=== PATIENT | female | born 1940 | race Two or more races ===

== ENCOUNTER 2017-10-28 15:44 | Inpatient (IN) | payer OTHER, MEDICAID ==
[~2017-10-28] VITALS: Ht 154.9 cm; Wt 58.3 kg
[2017-10-28 16:42] LABS: Basophils # (auto) 0.1 uL; Basophils % (auto) 0.8 % (0.0-2.0); Eosinophils # (auto) 0.2 uL; Eosinophils % (auto) 3.1 % (0.0-7.0); Hematocrit 42.9 % (36.0-46.0); Hemoglobin 14.3 g/dL (12.2-16.2); Lymphocytes # (auto) 1.9 uL; Mean Corpuscular Hemoglobin 28.2 pg (28.0-32.0); Mean Corpuscular Hgb Conc. 33.3 g/dL (32.0-36.0); Mean Corpuscular Volume 84.8 fL (80.0-100.0); Monocytes # (auto) 0.6 uL; Monocytes % (auto) 8.7 % (0.0-12.0); Neutrophils # (auto) 3.7 uL; Neutrophils % (auto) 57.4 % (37.0-80.0); Nucleated Red Blood Cells % 0.1 %; Platelet Count (auto) 207 10^3/uL (140-450); Red Blood Cells 5.06 10^6/uL (4.0-5.20); Red Cell Distribution Width 14.9 % (11.8-14.3); White Blood Cell 6.5 10^3/uL (4.4-10.8)
[2017-10-28 17:05] LABS: Albumin 3.7 g/dL (3.4-5.0); BUN/Creatinine Ratio 18.8; Bilirubin, Total 0.3 mg/dL (0.2-1.0); Calcium 8.6 mg/dL (8.5-10.1); Magnesium 2.3 mg/dL (1.6-2.6); Potassium 3.9 mmol/L (3.5-5.1); Total Protein 7.5 g/dL (6.4-8.2)
[2017-10-28] MEDS ORDERED: ENOXAPARIN SOD 60 MG/0.6 ML SYRINGE SC ONE ×2 (17:45→18:45)
[2017-10-28] MEDS ORDERED: NITROGLYCERIN 0.4 MG SL TAB SL ONE (18:25)
[2017-10-28] MEDS ORDERED: EPTIFIBATIDE DRIP(0.75MG/ML) 100 ML IV ONE (18:45)
[2017-10-28] MEDS ORDERED: EPTIFIBATIDE INJ (2MG/ML) 10ML VIAL IV ONE (18:45)
[2017-10-28] MEDS ORDERED: NITROGLYCERIN 0.4 MG SL TAB SL PRN ×2 (18:45→19:00)
[2017-10-28] MEDS ORDERED: LORazepam 0.5 MG TAB PO PRN (18:45)
[2017-10-28] MEDS ORDERED: LACTULOSE 20Gm/30ML SOLN PO PRN (18:45)
[2017-10-28] MEDS ORDERED: ACETAMINOPHEN 500 MG TAB PO PRN (18:45)
[2017-10-28] MEDS ORDERED: TEMAZEPAM 15 MG CAP PO PRN (18:45)
[2017-10-28] MEDS ORDERED: PROMETHAZINE HCL 25 MG/ML 1ML IV PRN (18:45)
[2017-10-28] MEDS ORDERED: MORPHINE SULF INJ 2 MG/ML SYRINGE 1ML IV PRN ×3 (18:45→19:00)
[2017-10-28] MEDS: SODIUM CHLORIDE 0.9% 1,000 ML IV SCH (19:36)
[2017-10-28] MEDS: NITROGLYCERIN 0.2MG/HR TOPICAL PATCH TD SCH (19:37)
[2017-10-28] MEDS: PANTOPRAZOLE 40 MG TAB PO SCH (19:38)
[2017-10-28] MEDS ORDERED: DEXTROSE (50%) 50ML SYRG IV PRN (20:15)
[2017-10-28] MEDS ORDERED: CLOP75TA41 PO (20:23)
[2017-10-28] MEDS ORDERED: CHOL20007 PO (20:23)
[2017-10-28] MEDS ORDERED: ATOR40TA52 PO (20:23)
[2017-10-28] MEDS ORDERED: SUCR1TAB PO (20:23)
[2017-10-28] MEDS ORDERED: METF-370 PO (20:23)
[2017-10-28] MEDS ORDERED: ACE3T PO (20:23)
[2017-10-28] MEDS ORDERED: FAM20T PO (20:23)
[2017-10-28] MEDS ORDERED: LOSA50TA6 PO (20:23)
[2017-10-28] MEDS ORDERED: RANI150C11 PO (20:23)
[2017-10-28 20:33] LABS: INR 0.96 (0.9-1.15); Partial Thromboplastin Time 27.3 sec (23.78-33.04); Prothrombin Time 10.3 sec (9.27-12.13)
[2017-10-28] MEDS: ATORVASTATIN 20 MG TAB PO SCH (21:50)
[2017-10-28] MEDS: METOPROLOL TARTRATE 25 MG TAB PO SCH (21:51)
[2017-10-28] MEDS: LISINOPRIL 5 MG TAB PO SCH (21:52)
[2017-10-28] MEDS: InsuLIN REG 1unit/0.01ml Soln (100units/ml) SC SCH (21:54)
[2017-10-28] MEDS: ACCU-CHEK COMFORT CURVE STRIP VI SCH (21:54)
[2017-10-29] VITALS (7 sets, daily range): BP systolic 118–146; BP diastolic 53–81
[2017-10-29 05:09] LABS: Basophils # (auto) 0.1 uL; Basophils % (auto) 0.8 % (0.0-2.0); Eosinophils # (auto) 0.2 uL; Eosinophils % (auto) 2.8 % (0.0-7.0); Hematocrit 38.9 % (36.0-46.0); Hemoglobin 12.9 g/dL (12.2-16.2); Lymphocytes # (auto) 2.2 uL; Lymphocytes % (auto) 33.5 % (10.0-50.0); Mean Corpuscular Hemoglobin 27.7 pg (28.0-32.0); Mean Corpuscular Hgb Conc. 33.2 g/dL (32.0-36.0); Mean Corpuscular Volume 83.3 fL (80.0-100.0); Monocytes # (auto) 0.6 uL; Monocytes % (auto) 8.6 % (0.0-12.0); Neutrophils # (auto) 3.5 uL; Neutrophils % (auto) 54.3 % (37.0-80.0); Nucleated Red Blood Cells % 0.2 %; Platelet Count (auto) 198 10^3/uL (140-450); Red Blood Cells 4.67 10^6/uL (4.0-5.20); Red Cell Distribution Width 15.1 % (11.8-14.3); White Blood Cell 6.5 10^3/uL (4.4-10.8)
[2017-10-29 05:31] LABS: BUN/Creatinine Ratio 22.9; Calcium 8.3 mg/dL (8.5-10.1); Potassium 3.6 mmol/L (3.5-5.1)
[2017-10-29 05:36] LABS: Cholesterol 121 mg/dL (< 200); HDL Cholesterol 35 mg/dL (40-59); LDL Cholesterol 70 mg/dL (< 100); Triglycerides 164 mg/dL (< 150)
[2017-10-29] MEDS ORDERED: ENOXAPARIN SOD 60 MG/0.6 ML SYRINGE SC SCH (06:00)
[2017-10-29] MEDS: ACCU-CHEK COMFORT CURVE STRIP VI SCH ×4 (06:54→22:13)
[2017-10-29] MEDS: InsuLIN REG 1unit/0.01ml Soln (100units/ml) SC SCH ×4 (06:54→22:00)
[2017-10-29] MEDS: SODIUM CHLORIDE 0.9% 1,000 ML IV SCH ×2 (07:56→22:12)
[2017-10-29] MEDS ORDERED: ANGIOMAX 250 MG VIAL IV ONE (08:27)
[2017-10-29] MEDS ORDERED: fentaNYL CITRATE 100 MCG/2 ML VL ONE (08:27)
[2017-10-29] MEDS ORDERED: SODIUM CHL 0.9% 50 ML ONE (08:28)
[2017-10-29] MEDS ORDERED: LIDOCAINE 2%HCL (LOCAL ANESTH.) INJ 10ml MDV ONE (08:28)
[2017-10-29] MEDS ORDERED: MIDAZOLAM HCL 1MG/1ML-2 ML VIAL ONE ×2 (08:28→10:54)
[2017-10-29] MEDS ORDERED: IODIXANOL 320MG/ML 100ML BTL IV ONE ×2 (08:29→10:47)
[2017-10-29] MEDS ORDERED: ATROPINE SULF 1 MG/10ml SYR ONE (09:08)
[2017-10-29] MEDS ORDERED: EPINEPHrine HCL 1 MG/10 ML SYRG ONE (09:08)
[2017-10-29] MEDS: LISINOPRIL 5 MG TAB PO SCH ×2 (10:00→22:00)
[2017-10-29] MEDS: PANTOPRAZOLE 40 MG TAB PO SCH (10:00)
[2017-10-29] MEDS: METOPROLOL TARTRATE 25 MG TAB PO SCH ×2 (10:00→22:00)
[2017-10-29] MEDS: ASPirin 81 mg TAB PO SCH (10:00)
[2017-10-29] MEDS ORDERED: TICAGRELOR 90 MG TAB ONE (11:16)
[2017-10-29] MEDS: SODIUM CHLOR 0.9% PF (SALINE LOCK) 10ML VIAL/SYR IV SCH ×2 (14:45→22:12)
[2017-10-29] MEDS: HYDROcodone-ACET 5/325MG TAB PO PRN ×2 (14:54→22:24)
[2017-10-29] MEDS: NITROGLYCERIN 0.2MG/HR TOPICAL PATCH TD SCH (17:37)
[2017-10-29] MEDS: ATORVASTATIN 20 MG TAB PO SCH (22:12)
[2017-10-29] MEDS: TICAGRELOR 90 MG TAB PO SCH (22:13)
[2017-10-30] VITALS: BP 103/54
[2017-10-30 04:00] VITALS: BP 105/53
[2017-10-30 05:26] LABS: Basophils # (auto) 0 uL; Basophils % (auto) 0.4 % (0.0-2.0); Eosinophils # (auto) 0.1 uL; Eosinophils % (auto) 1.8 % (0.0-7.0); Hematocrit 38.3 % (36.0-46.0); Hemoglobin 12.8 g/dL (12.2-16.2); Lymphocytes # (auto) 1.2 uL; Lymphocytes % (auto) 15.8 % (10.0-50.0); Mean Corpuscular Hgb Conc. 33.3 g/dL (32.0-36.0); Mean Corpuscular Volume 84.1 fL (80.0-100.0); Monocytes # (auto) 0.7 uL; Monocytes % (auto) 8.9 % (0.0-12.0); Neutrophils # (auto) 5.6 uL; Neutrophils % (auto) 73.1 % (37.0-80.0); Platelet Count (auto) 177 10^3/uL (140-450); Red Blood Cells 4.55 10^6/uL (4.0-5.20); Red Cell Distribution Width 15.1 % (11.8-14.3); White Blood Cell 7.6 10^3/uL (4.4-10.8)
[2017-10-30] MEDS: ACCU-CHEK COMFORT CURVE STRIP VI SCH ×2 (05:39→12:00)
[2017-10-30] MEDS: SODIUM CHLOR 0.9% PF (SALINE LOCK) 10ML VIAL/SYR IV SCH ×2 (05:39→13:50)
[2017-10-30] MEDS: InsuLIN REG 1unit/0.01ml Soln (100units/ml) SC SCH ×2 (05:39→12:00)
[2017-10-30 05:49] LABS: BUN/Creatinine Ratio 21.9; Calcium 8.3 mg/dL (8.5-10.1); Potassium 3.8 mmol/L (3.5-5.1)
[2017-10-30 05:51] LABS: Bilirubin, Total 0.6 mg/dL (0.2-1.0); Total Protein 6.3 g/dL (6.4-8.2)
[2017-10-30 08:00] VITALS: BP 137/66
[2017-10-30] MEDS: PANTOPRAZOLE 40 MG TAB PO SCH (08:19)
[2017-10-30] MEDS: TICAGRELOR 90 MG TAB PO SCH (09:39)
[2017-10-30] MEDS: ASPirin 81 mg TAB PO SCH (09:39)
[2017-10-30] MEDS: LISINOPRIL 5 MG TAB PO SCH (09:43)
[2017-10-30] MEDS: SODIUM CHLORIDE 0.9% 1,000 ML IV SCH (09:48)
[2017-10-30] MEDS: METOPROLOL TARTRATE 25 MG TAB PO SCH (09:48)
[2017-10-30] MEDS ORDERED: ENOXAPARIN SOD 40 MG/0.4 ML SYRINGE SC SCH (10:00)
[2017-10-30 11:58] VITALS: BP 134/49
[2017-10-30 12:06] VITALS: BP 141/85
[2017-11-21] MEDS ORDERED: METO25TA5 PO (14:14)
[2017-11-21] MEDS ORDERED: LISI2.5T47 PO (14:14)
== END 2017-10-30 16:06 | disposition home or self-care (01) | DRG 246 ==
LOC: ER 15:44 → OVERFLOW 15:45 → DOU IN ICU 22:38
PROVIDERS: ADMIT Internal Medicine; ATTEND Internal Medicine
PROC: B2151ZZ Fluoroscopy of Left Heart using Low Osmolar Contrast (ICD-10-PCS; principal; 2017-10-29)
PROC: 027135Z Dilation of Coronary Artery, Two Arteries with Two Drug-eluting Intraluminal Devices, Percutaneous Approach (ICD-10-PCS; 2017-10-29)
PROC: B2111ZZ Fluoroscopy of Multiple Coronary Arteries using Low Osmolar Contrast (ICD-10-PCS; 2017-10-29)
PROC: 4A023N7 Measurement of Cardiac Sampling and Pressure, Left Heart, Percutaneous Approach (ICD-10-PCS; 2017-10-29)
PROC: B2181ZZ Fluoroscopy of Left Internal Mammary Bypass Graft using Low Osmolar Contrast (ICD-10-PCS; 2017-10-29)
PROC: B2121ZZ Fluoroscopy of Single Coronary Artery Bypass Graft using Low Osmolar Contrast (ICD-10-PCS; 2017-10-29)
PROC: B41D1ZZ Fluoroscopy of Aorta and Bilateral Lower Extremity Arteries using Low Osmolar Contrast (ICD-10-PCS; 2017-10-29)
DX: T82.855A Stenosis of coronary artery stent, initial encounter (principal); I21.4 Non-ST elevation (NSTEMI) myocardial infarction; E44.1 Mild protein-calorie malnutrition; I25.10 Atherosclerotic heart disease of native coronary artery without angina pectoris; K27.9 Peptic ulcer, site unspecified, unspecified as acute or chronic, without hemorrhage or perforation; I10 Essential (primary) hypertension; I25.2 Old myocardial infarction; E78.5 Hyperlipidemia, unspecified; E11.9 Type 2 diabetes mellitus without complications; Y83.1 Surgical operation with implant of artificial internal device as the cause of abnormal reaction of the patient, or of later complication, without mention of misadventure at the time of the procedure; Y83.8 Other surgical procedures as the cause of abnormal reaction of the patient, or of later complication, without mention of misadventure at the time of the procedure; Y92.89 Other specified places as the place of occurrence of the external cause; Z87.11 Personal history of peptic ulcer disease; Z95.1 Presence of aortocoronary bypass graft; Z90.49 Acquired absence of other specified parts of digestive tract; Z79.84 Long term (current) use of oral hypoglycemic drugs; Z79.899 Other long term (current) drug therapy; Z68.24 Body mass index [BMI] 24.0-24.9, adult
CPT/HCPCS: 36415; 71045; 75716; 80048; 80053; 80061; 82550; 82962; 83735; 83880; 84443; 84484; 85025; 85379; 85610; 85652; 85730; 86141; 87081; 92921; 92928; 93005; 93306; 93459; 96361; 96365; 96375; 99152; A6257; C1874; J1815; J2001; J2250; Q9967

== ENCOUNTER 2017-11-01 13:54 | Inpatient (IN) | payer OTHER, MEDICAID ==
[~2017-11-01] VITALS: Ht 152.4 cm; Wt 61.0 kg
[2017-11-01] VITALS (15 sets, daily range): BP systolic 95–159; BP diastolic 37–71
[~2017-11-01 13:54] MED LIST: ACE3T PO; ATOR40TA52 PO; CHOL20007 PO; FAM20T PO; METF-370 PO; RANI150C11 PO; SUCR1TAB PO
[2017-11-01 14:52] LABS: Basophils # (auto) 0.1 uL; Basophils % (auto) 0.6 % (0.0-2.0); Eosinophils # (auto) 0.2 uL; Eosinophils % (auto) 2.4 % (0.0-7.0); Hematocrit 39.7 % (36.0-46.0); Hemoglobin 13.3 g/dL (12.2-16.2); Lymphocytes # (auto) 1.4 uL; Lymphocytes % (auto) 15.7 % (10.0-50.0); Mean Corpuscular Hemoglobin 28.4 pg (28.0-32.0); Mean Corpuscular Hgb Conc. 33.6 g/dL (32.0-36.0); Mean Corpuscular Volume 84.6 fL (80.0-100.0); Monocytes # (auto) 0.9 uL; Monocytes % (auto) 10.6 % (0.0-12.0); Neutrophils # (auto) 6.2 uL; Neutrophils % (auto) 70.7 % (37.0-80.0); Nucleated Red Blood Cells % 0.1 %; Platelet Count (auto) 202 10^3/uL (140-450); Red Cell Distribution Width 15.4 % (11.8-14.3); White Blood Cell 8.7 10^3/uL (4.4-10.8)
[2017-11-01 15:09] LABS: Albumin 3.6 g/dL (3.4-5.0); BUN/Creatinine Ratio 18.8; Potassium 4.7 mmol/L (3.5-5.1)
[2017-11-01 15:14] LABS: INR 0.96 (0.9-1.15); Partial Thromboplastin Time 29.5 sec (23.78-33.04); Prothrombin Time 10.3 sec (9.27-12.13)
[2017-11-01 15:25] LABS: Bilirubin, Total 0.5 mg/dL (0.2-1.0); Total Protein 7.9 g/dL (6.4-8.2)
[2017-11-01] MEDS: SODIUM CHLORIDE 0.9% 1,000 ML IV SCH ×2 (16:04→18:01)
[2017-11-01] MEDS ORDERED: MORPHINE SULFATE 4 MG/ML SYR/VIAL IV PRN ×2 (16:15)
[2017-11-01] MEDS ORDERED: ACETAMINOPHEN 500 MG TAB PO PRN (16:15)
[2017-11-01] MEDS ORDERED: LORazepam 0.5 MG TAB PO PRN (16:15)
[2017-11-01] MEDS ORDERED: LACTULOSE 20Gm/30ML SOLN PO PRN (16:15)
[2017-11-01] MEDS ORDERED: HYDROcodone-ACET 5/325MG TAB PO PRN (16:15)
[2017-11-01] MEDS ORDERED: PROMETHAZINE HCL 25 MG/ML 1ML IV PRN (16:15)
[2017-11-01] MEDS ORDERED: TEMAZEPAM 15 MG CAP PO PRN (16:15)
[2017-11-01] MEDS ORDERED: NITROGLYCERIN 0.4 MG SL TAB SL PRN (16:15)
[2017-11-01] MEDS ORDERED: DEXTROSE (50%) 50ML SYRG IV PRN (16:15)
[2017-11-01] MEDS: InsuLIN REG 1unit/0.01ml Soln (100units/ml) SC SCH ×2 (16:28→21:50)
[2017-11-01] MEDS: ACCU-CHEK COMFORT CURVE STRIP VI SCH ×2 (16:29→21:50)
[2017-11-01] MEDS: PANTOPRAZOLE 40 MG TAB PO SCH (16:37)
[2017-11-01] MEDS: SUCRALFATE 1 GM TAB PO SCH ×2 (17:15→21:49)
[2017-11-01] MEDS: METOPROLOL TARTRATE 25 MG TAB PO SCH (21:49)
[2017-11-01] MEDS: ATORVASTATIN 20 MG TAB PO SCH (21:49)
[2017-11-02] VITALS (55 sets, daily range): BP systolic 91–188; BP diastolic 42–112
[2017-11-02] MEDS: InsuLIN REG 1unit/0.01ml Soln (100units/ml) SC SCH ×4 (07:00→22:58)
[2017-11-02] MEDS: SUCRALFATE 1 GM TAB PO SCH ×4 (07:01→22:50)
[2017-11-02] MEDS: ACCU-CHEK COMFORT CURVE STRIP VI SCH ×4 (07:02→22:00)
[2017-11-02] MEDS: METOPROLOL TARTRATE 25 MG TAB PO SCH ×2 (10:00→22:51)
[2017-11-02] MEDS ORDERED: FAMOTIDINE 20 MG TAB PO SCH (10:00)
[2017-11-02] MEDS: PANTOPRAZOLE 40 MG TAB PO SCH (10:00)
[2017-11-02] MEDS: CHOLECALCIFEROL (VITD3) 1,000 UNIT TAB PO SCH (10:00)
[2017-11-02] MEDS: NITROGLYCERIN 0.2MG/HR TOPICAL PATCH TD SCH (10:00)
[2017-11-02] MEDS ORDERED: HEPARIN DRIP/D5W 100UNITS/ML 250 ML IV SCH (12:19)
[2017-11-02] MEDS ORDERED: HEPARIN SODIUM (PORCINE) 5000 UNITS/ML 1ML VIAL IV ONE (12:30)
[2017-11-02] MEDS ORDERED: LOSARTAN POTASSIUM 25 MG TAB PO ONE (13:00)
[2017-11-02 13:40] LABS: Basophils # (auto) 0 uL; Basophils % (auto) 0.5 % (0.0-2.0); Eosinophils # (auto) 0.2 uL; Hematocrit 39.8 % (36.0-46.0); Lymphocytes # (auto) 1.6 uL; Lymphocytes % (auto) 21.7 % (10.0-50.0); Mean Corpuscular Hemoglobin 27.7 pg (28.0-32.0); Mean Corpuscular Hgb Conc. 32.6 g/dL (32.0-36.0); Mean Corpuscular Volume 85.1 fL (80.0-100.0); Monocytes # (auto) 0.8 uL; Monocytes % (auto) 10.3 % (0.0-12.0); Neutrophils # (auto) 4.9 uL; Neutrophils % (auto) 64.5 % (37.0-80.0); Nucleated Red Blood Cells % 0.1 %; Platelet Count (auto) 216 10^3/uL (140-450); Red Blood Cells 4.67 10^6/uL (4.0-5.20); Red Cell Distribution Width 15.3 % (11.8-14.3); White Blood Cell 7.6 10^3/uL (4.4-10.8)
[2017-11-02] MEDS: ATORVASTATIN 20 MG TAB PO SCH (22:51)
[2017-11-03 04:39] VITALS: BP 117/62
[2017-11-03] MEDS: SUCRALFATE 1 GM TAB PO SCH (05:35)
[2017-11-03] MEDS: InsuLIN REG 1unit/0.01ml Soln (100units/ml) SC SCH (05:35)
[2017-11-03] MEDS: ACCU-CHEK COMFORT CURVE STRIP VI SCH (05:35)
[2017-11-03 06:15] LABS: Urine Bacteria FEW /hpf (None Seen); Urine Blood Negative /uL (Negative); Urine Specific Gravity 1.009 (1.001-1.035); Urine WBC 1 /hpf (0 - 5)
[2017-11-03 08:42] VITALS: BP 113/58
[2017-11-03] MEDS ORDERED: CLOP75TA28 PO (09:29)
[2017-11-03] MEDS ORDERED: PANT40T PO (09:29)
[2017-11-03] MEDS: METOPROLOL TARTRATE 25 MG TAB PO SCH (09:36)
[2017-11-03] MEDS: CHOLECALCIFEROL (VITD3) 1,000 UNIT TAB PO SCH (09:37)
[2017-11-03] MEDS: NITROGLYCERIN 0.2MG/HR TOPICAL PATCH TD SCH (09:37)
[2017-11-03] MEDS: PANTOPRAZOLE 40 MG TAB PO SCH (09:37)
[2017-11-03] MEDS ORDERED: LOSARTAN POTASSIUM 25 MG TAB PO SCH (10:00)
[2017-11-03] MEDS ORDERED: CLOPIDOGREL BISULFATE 75 MG TAB PO SCH ×2 (10:00)
[2017-11-03] MEDS ORDERED: ASPirin 81 mg TAB PO SCH (10:00)
[2017-11-03 11:30] VITALS: BP 113/58
[2017-11-21] MEDS ORDERED: METO25TA5 PO (14:14)
[2017-11-21] MEDS ORDERED: LISI2.5T47 PO (14:14)
== END 2017-11-03 11:50 | disposition home or self-care (01) | DRG 280 ==
LOC: ER 14:01 → TELE 14:02 → ICU WEST 17:55 → TELE-WESTW 11-02 16:00
PROVIDERS: ADMIT Internal Medicine; ATTEND Internal Medicine
DX: I21.4 Non-ST elevation (NSTEMI) myocardial infarction (principal); I50.43 Acute on chronic combined systolic (congestive) and diastolic (congestive) heart failure; N13.30 Unspecified hydronephrosis; R04.0 Epistaxis; R31.9 Hematuria, unspecified; E11.51 Type 2 diabetes mellitus with diabetic peripheral angiopathy without gangrene; I25.10 Atherosclerotic heart disease of native coronary artery without angina pectoris; Z95.1 Presence of aortocoronary bypass graft; E78.5 Hyperlipidemia, unspecified; I11.0 Hypertensive heart disease with heart failure; Z87.11 Personal history of peptic ulcer disease; Z95.5 Presence of coronary angioplasty implant and graft
CPT/HCPCS: 36415; 71046; 76775; 80053; 81001; 82550; 82962; 83036; 83735; 83880; 84443; 84484; 85025; 85610; 85730; 87081; 87086; 93005; 94761; 96360; J1815

== ENCOUNTER → 2017-11-21 | Outpatient (CLI) | payer OTHER, MEDICAID ==
[~2017-11-21] MED LIST changes: +CLOP75TA28 PO; +CLOPIDOGREL BISULFATE 75 MG TAB ONE; -FAM20T PO; +LISI2.5T47 PO; +METO25TA5 PO; +PANT40T PO
[2017-11-21 08:10] VITALS: BP 139/66
[2017-11-21 08:42] VITALS: BP 148/64
[2017-11-21 12:03] LABS: Basophils # (auto) 0.1 uL; Eosinophils # (auto) 0.2 uL; Eosinophils % (auto) 4.1 % (0.0-7.0); Hematocrit 42.4 % (36.0-46.0); Hemoglobin 14.2 g/dL (12.2-16.2); Lymphocytes # (auto) 1.1 uL; Lymphocytes % (auto) 19.6 % (10.0-50.0); Mean Corpuscular Hemoglobin 28.6 pg (28.0-32.0); Mean Corpuscular Hgb Conc. 33.5 g/dL (32.0-36.0); Mean Corpuscular Volume 85.4 fL (80.0-100.0); Monocytes # (auto) 0.4 uL; Monocytes % (auto) 6.5 % (0.0-12.0); Neutrophils # (auto) 3.8 uL; Neutrophils % (auto) 68.8 % (37.0-80.0); Nucleated Red Blood Cells % 0.4 %; Platelet Count (auto) 229 10^3/uL (140-450); Red Blood Cells 4.97 10^6/uL (4.0-5.20); Red Cell Distribution Width 15.3 % (11.8-14.3); White Blood Cell 5.5 10^3/uL (4.4-10.8)
[2017-11-21 12:32] LABS: BUN/Creatinine Ratio 16.9; Calcium 9.1 mg/dL (8.5-10.1); Potassium 4.4 mmol/L (3.5-5.1)
[2017-11-21 12:33] LABS: INR 0.99 (0.9-1.15); Partial Thromboplastin Time 27.7 sec (23.78-33.04); Prothrombin Time 10.6 sec (9.27-12.13)
== END | disposition home or self-care (01) ==
LOC: CHF HDHVI 08:00
PROVIDERS: ATTEND Internal Medicine Cardiovascular Disease
DX: Z01.812 Encounter for preprocedural laboratory examination (principal); D64.9 Anemia, unspecified; R79.1 Abnormal coagulation profile; I10 Essential (primary) hypertension; R94.31 Abnormal electrocardiogram [ECG] [EKG]
CPT/HCPCS: 36415; 80048; 85025; 85610; 85730; 93005; G0463

== ENCOUNTER 2017-11-22 11:09 | Inpatient (IN) | payer OTHER, MEDICAID ==
[~2017-11-22] VITALS: Ht 152.4 cm; Wt 42.2 kg
[~2017-11-22 11:09] MED LIST changes: -CLOPIDOGREL BISULFATE 75 MG TAB ONE; -RANI150C11 PO
[2017-11-22] MEDS ORDERED: LIDOCAINE 2%HCL (LOCAL ANESTH.) INJ 10ml MDV ONE (12:32)
[2017-11-22] MEDS ORDERED: IOHEXOL 350 MG/ML 100ML IJ ONE (12:32)
[2017-11-22] MEDS ORDERED: HEPARIN IN NS 1000Units/500mL 1,500 ML ONE (12:32)
[2017-11-22] MEDS ORDERED: fentaNYL CITRATE 100 MCG/2 ML VL ONE ×2 (12:41→14:38)
[2017-11-22] MEDS ORDERED: ANGIOMAX 250 MG VIAL IV ONE ×2 (12:41→14:42)
[2017-11-22] MEDS ORDERED: MIDAZOLAM HCL 1MG/1ML-2 ML VIAL ONE ×2 (12:41→14:38)
[2017-11-22] MEDS ORDERED: SODIUM CHL 0.9% 50 ML ONE ×2 (12:42→14:42)
[2017-11-22] MEDS ORDERED: hydrALAZINE HCL 20 MG/ML VL ONE (13:51)
[2017-11-22] MEDS ORDERED: IODIXANOL 320MG/ML 100ML BTL IV ONE ×2 (14:00→14:42)
[2017-11-22] MEDS ORDERED: ONDANSETRON HCL 4 MG/2 ML VIAL ONE (15:08)
[2017-11-22] MEDS ORDERED: NITROGLYCERIN 0.4 MG SL TAB SL PRN (15:30)
[2017-11-22] MEDS ORDERED: HYDROcodone-ACET 5/325MG TAB PO PRN (15:30)
[2017-11-22] MEDS ORDERED: CLOPIDOGREL BISULFATE 75 MG TAB PO ONE (15:30)
[2017-11-22] MEDS ORDERED: DEXTROSE (50%) 50ML SYRG IV PRN (15:30)
[2017-11-22] MEDS ORDERED: ACETAMINOPHEN 500 MG TAB PO PRN (15:30)
[2017-11-22] MEDS ORDERED: MORPHINE SULF INJ 2 MG/ML SYRINGE 1ML IV PRN (15:30)
[2017-11-22] MEDS ORDERED: ONDANSETRON HCL 4 MG/2 ML VIAL IV PRN (15:30)
[2017-11-22] MEDS: SOD CHL 0.45% 1,000 ML IV SCH (15:41)
[2017-11-22 16:04] LABS: Basophils # (auto) 0 uL; Basophils % (auto) 0.7 % (0.0-2.0); Eosinophils # (auto) 0.2 uL; Eosinophils % (auto) 3.2 % (0.0-7.0); Hemoglobin 13.6 g/dL (12.2-16.2); Lymphocytes # (auto) 1.6 uL; Lymphocytes % (auto) 24.8 % (10.0-50.0); Mean Corpuscular Hemoglobin 28.3 pg (28.0-32.0); Mean Corpuscular Hgb Conc. 33.3 g/dL (32.0-36.0); Mean Corpuscular Volume 85.2 fL (80.0-100.0); Monocytes # (auto) 0.4 uL; Monocytes % (auto) 6.7 % (0.0-12.0); Neutrophils # (auto) 4.3 uL; Neutrophils % (auto) 64.6 % (37.0-80.0); Nucleated Red Blood Cells % 0.1 %; Platelet Count (auto) 188 10^3/uL (140-450); Red Blood Cells 4.81 10^6/uL (4.0-5.20); Red Cell Distribution Width 15.7 % (11.8-14.3); White Blood Cell 6.6 10^3/uL (4.4-10.8)
[2017-11-22 16:22] LABS: Albumin 3.6 g/dL (3.4-5.0); BUN/Creatinine Ratio 18.6; Bilirubin, Total 0.6 mg/dL (0.2-1.0); Calcium 8.6 mg/dL (8.5-10.1); Potassium 3.9 mmol/L (3.5-5.1); Total Protein 7.3 g/dL (6.4-8.2)
[2017-11-22 17:16] VITALS: BP 127/62
[2017-11-22 17:25] VITALS: BP 127/62
[2017-11-22] MEDS: InsuLIN REG 1unit/0.01ml Soln (100units/ml) SC SCH (18:17)
[2017-11-22] MEDS: ACCU-CHEK COMFORT CURVE STRIP VI SCH ×2 (18:17→21:31)
[2017-11-22 21:30] VITALS: BP 116/55
[2017-11-22] MEDS: SODIUM CHLOR 0.9% PF (SALINE LOCK) 10ML VIAL/SYR IV SCH (21:30)
[2017-11-22] MEDS: METOPROLOL TARTRATE 25 MG TAB PO SCH (21:31)
[2017-11-22] MEDS ORDERED: InsuLIN REG 1unit/0.01ml Soln (100units/ml) SC SCH (22:00)
[2017-11-22] MEDS ORDERED: ATORVASTATIN 20 MG TAB PO SCH (22:00)
[2017-11-23] MEDS: SOD CHL 0.45% 1,000 ML IV SCH ×2 (04:50→06:29)
[2017-11-23 05:00] VITALS: BP 121/55
[2017-11-23] MEDS: SODIUM CHLOR 0.9% PF (SALINE LOCK) 10ML VIAL/SYR IV SCH (06:29)
[2017-11-23] MEDS: ACCU-CHEK COMFORT CURVE STRIP VI SCH ×2 (06:30→12:10)
[2017-11-23] MEDS: InsuLIN REG 1unit/0.01ml Soln (100units/ml) SC SCH ×2 (06:30→12:10)
[2017-11-23 06:39] LABS: Albumin 3.3 g/dL (3.4-5.0); BUN/Creatinine Ratio 16.9; Calcium 8.6 mg/dL (8.5-10.1); Potassium 4.3 mmol/L (3.5-5.1)
[2017-11-23 06:42] LABS: Bilirubin, Total 0.6 mg/dL (0.2-1.0)
[2017-11-23] MEDS ORDERED: SUCRALFATE 1 GM TAB PO SCH (07:00)
[2017-11-23 08:00] VITALS: BP 120/59
[2017-11-23 08:35] LABS: Basophils # (auto) 0 uL; Basophils % (auto) 0.5 % (0.0-2.0); Eosinophils # (auto) 0.1 uL; Eosinophils % (auto) 0.9 % (0.0-7.0); Hematocrit 40.3 % (36.0-46.0); Hemoglobin 13.2 g/dL (12.2-16.2); Lymphocytes # (auto) 1.5 uL; Lymphocytes % (auto) 17.4 % (10.0-50.0); Mean Corpuscular Hemoglobin 27.7 pg (28.0-32.0); Mean Corpuscular Hgb Conc. 32.8 g/dL (32.0-36.0); Mean Corpuscular Volume 84.7 fL (80.0-100.0); Monocytes # (auto) 0.7 uL; Monocytes % (auto) 8.4 % (0.0-12.0); Neutrophils # (auto) 6.3 uL; Neutrophils % (auto) 72.8 % (37.0-80.0); Nucleated Red Blood Cells % 0.1 %; Platelet Count (auto) 190 10^3/uL (140-450); Red Blood Cells 4.75 10^6/uL (4.0-5.20); Red Cell Distribution Width 15.8 % (11.8-14.3); White Blood Cell 8.6 10^3/uL (4.4-10.8)
[2017-11-23] MEDS ORDERED: LISINOPRIL 5 MG TAB PO SCH (10:00)
[2017-11-23] MEDS ORDERED: CLOPIDOGREL BISULFATE 75 MG TAB PO SCH (10:00)
[2017-11-23] MEDS ORDERED: CHOLECALCIFEROL (VITD3) 1,000 UNIT TAB PO SCH (10:00)
[2017-11-23] MEDS ORDERED: PANTOPRAZOLE 40 MG TAB PO SCH (10:00)
[2017-11-23] MEDS: METOPROLOL TARTRATE 25 MG TAB PO SCH (10:31)
[2017-11-23 12:37] VITALS: BP 127/61
[2017-11-23 13:50] VITALS: BP 127/61
== END 2017-11-23 15:59 | disposition home or self-care (01) | DRG 253 ==
LOC: CATH 11:09 → WEST WING 11:10
PROVIDERS: ADMIT Internal Medicine; ATTEND Internal Medicine
PROC: B41G1ZZ Fluoroscopy of Left Lower Extremity Arteries using Low Osmolar Contrast (ICD-10-PCS; principal; 2017-11-22)
PROC: B41F1ZZ Fluoroscopy of Right Lower Extremity Arteries using Low Osmolar Contrast (ICD-10-PCS; 2017-11-22)
PROC: 047J34Z Dilation of Left External Iliac Artery with Drug-eluting Intraluminal Device, Percutaneous Approach (ICD-10-PCS; 2017-11-22)
PROC: 047D34Z Dilation of Left Common Iliac Artery with Drug-eluting Intraluminal Device, Percutaneous Approach (ICD-10-PCS; 2017-11-22)
PROC: 047L34Z Dilation of Left Femoral Artery with Drug-eluting Intraluminal Device, Percutaneous Approach (ICD-10-PCS; 2017-11-22)
DX: I70.213 Atherosclerosis of native arteries of extremities with intermittent claudication, bilateral legs (principal); Z68.1 Body mass index [BMI] 19.9 or less, adult; I10 Essential (primary) hypertension; E78.5 Hyperlipidemia, unspecified; I67.9 Cerebrovascular disease, unspecified; R63.6 Underweight; F17.210 Nicotine dependence, cigarettes, uncomplicated; E11.8 Type 2 diabetes mellitus with unspecified complications
CPT/HCPCS: 36415; 37221; 37226; 75716; 80053; 82962; 85025; 87081; 99152; 99153; C1781; J1815; J2001; J2250; J2405; Q9967

== ENCOUNTER → 2018-03-07 | Outpatient (CLI) | payer OTHER, MEDICAID ==
[~2018-03-07] VITALS: Ht 152.4 cm; Wt 59.0 kg
[~2018-03-07] MED LIST changes: +ADENOSINE 50 MG in GIVE UN-DILUTED 0 ML IV ONE; +ADENOSINE 90 MG/30 ML INJ IV ONE
== END | disposition home or self-care (01) ==
LOC: Rad HDHVI 08:04
PROVIDERS: ATTEND Internal Medicine
DX: I25.110 Atherosclerotic heart disease of native coronary artery with unstable angina pectoris (principal); F41.9 Anxiety disorder, unspecified; E11.9 Type 2 diabetes mellitus without complications; M79.605 Pain in left leg; R00.2 Palpitations; Z98.62 Peripheral vascular angioplasty status
CPT/HCPCS: 78452; 93005; 96374; 96375; A9500; J0153

== ENCOUNTER → 2018-03-19 | Outpatient (CLI) | payer OTHER, MEDICAID ==
[~2018-03-19] MED LIST changes: -ADENOSINE 50 MG in GIVE UN-DILUTED 0 ML IV ONE; -ADENOSINE 90 MG/30 ML INJ IV ONE
[2018-03-19 08:30] VITALS: BP 158/64
[2018-03-19 09:12] VITALS: BP 160/67
[2018-03-19 12:14] LABS: Basophils # (auto) 0 uL; Basophils % (auto) 0.8 % (0.0-2.0); Eosinophils # (auto) 0.2 uL; Eosinophils % (auto) 3.3 % (0.0-7.0); Hematocrit 44.4 % (36.0-46.0); Hemoglobin 14.7 g/dL (12.2-16.2); Lymphocytes # (auto) 1.2 uL; Lymphocytes % (auto) 22.2 % (10.0-50.0); Mean Corpuscular Hemoglobin 29.4 pg (28.0-32.0); Mean Corpuscular Hgb Conc. 33.1 g/dL (32.0-36.0); Mean Corpuscular Volume 88.8 fL (80.0-100.0); Monocytes # (auto) 0.3 uL; Monocytes % (auto) 6.2 % (0.0-12.0); Neutrophils # (auto) 3.6 uL; Neutrophils % (auto) 67.5 % (37.0-80.0); Nucleated Red Blood Cells % 0.3 %; Platelet Count (auto) 219 10^3/uL (140-450); Red Cell Distribution Width 13.7 % (11.8-14.3); White Blood Cell 5.4 10^3/uL (4.4-10.8)
[2018-03-19 12:26] LABS: INR 0.98 (0.9-1.15); Partial Thromboplastin Time 28.2 sec (23.78-33.04); Prothrombin Time 10.5 sec (9.27-12.13)
[2018-03-19 12:31] LABS: BUN/Creatinine Ratio 18.4; Calcium 9.1 mg/dL (8.5-10.1)
== END | disposition home or self-care (01) ==
LOC: Rad HDHVI 08:21
PROVIDERS: ATTEND Internal Medicine Cardiovascular Disease
DX: Z01.818 Encounter for other preprocedural examination (principal); I70.0 Atherosclerosis of aorta; I25.10 Atherosclerotic heart disease of native coronary artery without angina pectoris; I11.0 Hypertensive heart disease with heart failure; I50.9 Heart failure, unspecified; D64.9 Anemia, unspecified; R79.1 Abnormal coagulation profile
CPT/HCPCS: 36415; 71046; 80048; 85025; 85610; 85730; 93005; G0463

== ENCOUNTER → 2018-04-13 | Outpatient (CLI) | payer OTHER, MEDICAID ==
[~2018-04-13] MED LIST changes: +ASPI81TA27 PO; +CILO100T PO; +GABA300C10 PO; +ISOS30TA4 PO; +RANI-226 PO
[2018-04-13 09:25] VITALS: BP 163/64
[2018-04-13 09:40] VITALS: BP 158/64
--- NOTE | 2018-04-13 09:40 | NUR ---
Pre-Op Discharge Summary: See e-MAR for any medications given for this visit. Pre-op orders received and carried out per MD of EKG, LABS and chest xrays. Patient given a copy of EKG with instructions to go to [facility] out patient for further follow up care.
[2018-04-13 12:13] LABS: Basophils # (auto) 0 uL; Basophils % (auto) 0.8 % (0.0-2.0); Eosinophils # (auto) 0.2 uL; Eosinophils % (auto) 2.8 % (0.0-7.0); Hematocrit 44.2 % (36.0-46.0); Hemoglobin 14.5 g/dL (12.2-16.2); Lymphocytes # (auto) 1.4 uL; Lymphocytes % (auto) 23.9 % (10.0-50.0); Mean Corpuscular Hemoglobin 29.3 pg (28.0-32.0); Mean Corpuscular Hgb Conc. 32.9 g/dL (32.0-36.0); Mean Corpuscular Volume 89.1 fL (80.0-100.0); Monocytes # (auto) 0.4 uL; Monocytes % (auto) 6.8 % (0.0-12.0); Neutrophils # (auto) 3.7 uL; Neutrophils % (auto) 65.7 % (37.0-80.0); Nucleated Red Blood Cells % 0.3 %; Platelet Count (auto) 211 10^3/uL (140-450); Red Blood Cells 4.97 10^6/uL (4.0-5.20); Red Cell Distribution Width 14.1 % (11.8-14.3); White Blood Cell 5.7 10^3/uL (4.4-10.8)
[2018-04-13 12:16] LABS: Calcium 9.2 mg/dL (8.5-10.1)
[2018-04-13 12:17] LABS: BUN/Creatinine Ratio 25.3
[2018-04-13 12:29] LABS: INR 0.99 (0.9-1.15); Partial Thromboplastin Time 26.8 sec (23.78-33.04); Prothrombin Time 10.6 sec (9.27-12.13)
== END | disposition home or self-care (01) ==
LOC: Rad HDHVI 08:45
PROVIDERS: ATTEND Internal Medicine Cardiovascular Disease
DX: Z01.818 Encounter for other preprocedural examination (principal); I11.0 Hypertensive heart disease with heart failure; I50.9 Heart failure, unspecified; D64.9 Anemia, unspecified; R79.1 Abnormal coagulation profile
CPT/HCPCS: 36415; 71046; 80048; 85025; 85610; 85730; 93005; G0463

== ENCOUNTER 2018-11-23 23:55 | Inpatient (IN) | payer OTHER, MEDICAID ==
[~2018-11-23] VITALS: Ht 152.4 cm; Wt 68.0 kg
[~2018-11-23 23:55] MED LIST changes: -ACE3T PO; +ASPI-404 PO; -ASPI81TA27 PO; -LISI2.5T47 PO; -METO25TA5 PO
[2018-11-24 02:42] LABS: Basophils # (auto) 0.1 uL; Basophils % (auto) 0.7 % (0.0-2.0); Eosinophils # (auto) 0.1 uL; Eosinophils % (auto) 0.8 % (0.0-7.0); Hematocrit 39.5 % (36.0-46.0); Hemoglobin 13.5 g/dL (12.2-16.2); Lymphocytes # (auto) 1.3 uL; Lymphocytes % (auto) 16.3 % (10.0-50.0); Mean Corpuscular Hemoglobin 30.3 pg (28.0-32.0); Mean Corpuscular Volume 88.9 fL (80.0-100.0); Monocytes # (auto) 0.5 uL; Monocytes % (auto) 5.5 % (0.0-12.0); Neutrophils # (auto) 6.3 uL; Neutrophils % (auto) 76.7 % (37.0-80.0); Nucleated Red Blood Cells % 0.5 %; Platelet Count (auto) 206 10^3/uL (140-450); Red Blood Cells 4.45 10^6/uL (4.0-5.20); Red Cell Distribution Width 13.5 % (11.8-14.3); White Blood Cell 8.2 10^3/uL (4.4-10.8)
[2018-11-24] MEDS ORDERED: MECLIZINE HCL 25 MG TAB PO ONE ×2 (02:45→16:15)
[2018-11-24 03:00] LABS: Albumin 3.8 g/dL (3.4-5.0); BUN/Creatinine Ratio 21.9; Calcium 8.7 mg/dL (8.5-10.1); Magnesium 1.7 mg/dL (1.6-2.6); Potassium 4.5 mmol/L (3.5-5.1)
[2018-11-24 03:05] LABS: Bilirubin, Total 0.2 mg/dL (0.2-1.0); Total Protein 7.3 g/dL (6.4-8.2)
[2018-11-24] MEDS ORDERED: DOCUSATE SOD 100 MG CAP PO PRN (06:30)
[2018-11-24] MEDS ORDERED: ACETAMINOPHEN 500 MG TAB PO PRN (06:30)
[2018-11-24] MEDS ORDERED: DEXTROSE (50%) 50ML SYRG IV PRN (06:30)
--- NOTE | 2018-11-24 07:58 | NUR ---
PATIENT ARRIVED ON UNIT NO REPORT RECEIVED FROM ER NURSE, PATIENT ARRIVED ON UNIT, UNKNOWN TO PATIENT DX ETC. PATIENT PLACED IN ROOM, BED IN LOW POSITION, BRAKES APPLIED, BED RAILS UP X2, AND CALL LIGHT WITHIN REACH. EDUCATED PATIENT CONSTRUCTION SECRETARY LIGHT USE PRN AND ON DETERMINING THE POC. PATIENT VERBALIZED UNDERSTANDING. CONTINUING TO MONITOR Q1 HR AND PRN
[2018-11-24] MEDS: ACCU-CHEK COMFORT CURVE STRIP VI SCH ×3 (08:30→16:51)
[2018-11-24] MEDS: SUCRALFATE 1 GM TAB PO SCH ×3 (08:30→16:50)
[2018-11-24] MEDS: InsuLIN REG 1unit/0.01ml Soln (100units/ml) SC SCH ×3 (08:30→16:51)
[2018-11-24 09:00] VITALS: BP 160/74
[2018-11-24] MEDS ORDERED: GABAPENTIN 300 MG CAP PO SCH (10:00)
[2018-11-24] MEDS ORDERED: LISINOPRIL 20 MG TAB PO SCH (10:00)
[2018-11-24] MEDS ORDERED: ASPirin-EC 81 mg tab PO SCH (10:00)
[2018-11-24] MEDS ORDERED: PANTOPRAZOLE 40 MG TAB PO SCH (10:00)
--- NOTE | 2018-11-24 10:00 | NUR ---
PATIENT REFUSING LABS PATIENT REFUSED LAB DRAW X1 EDUCATED ON IMPORTANCE OF ALLOWING LAB DRAW
--- NOTE | 2018-11-24 11:00 | NUR ---
PATIENT REFUSING LABS PATIENT REFUSED LAB DRAW X2 EDUCATED ON IMPORTANCE OF ALLOWING LAB DRAW, PATIENT AGREED TO ALLOW NEXT DRAW
[2018-11-24 13:00] VITALS: BP 110/57
--- NOTE | 2018-11-24 16:05 | NUR ---
AT BEDSIDE DR BAUTISTA AT BEDSIDE WITH PATIENT AND SON
[2018-11-24 16:34] VITALS: BP 129/51
--- NOTE | 2018-11-24 18:00 | NUR ---
IV removal IV DC'd X 2 with clean sterile technique, catheter fully intact. Pressure dressing applied to site. Patient tolerated well.
--- NOTE | 2018-11-24 18:05 | NUR ---
TELE MONITOR REMOVED
--- NOTE | 2018-11-24 18:15 | NUR ---
PATIENT DC PATIENT LEFT VIA WHEELCHAIR AFTER BEING EDUCATED ON F/U AND DISCHARGE CARE. PATIENT AND FAMILY VERBALIZED UNDERSTANDING. PATIENT DENIED ANY C/O PAIN OR DISTRESS.
[2018-11-24] MEDS ORDERED: ATORVASTATIN 20 MG TAB PO SCH (22:00)
[2018-11-24] MEDS ORDERED: MECLIZINE HCL 25 MG TAB PO SCH (22:00)
== END 2018-11-24 18:15 | disposition home or self-care (01) | DRG 313 ==
LOC: EDBD 23:55 → ER 23:58 → TELE 23:59 → TELE-WESTW 11-24 08:08
PROVIDERS: ADMIT Nurse Practitioner Family; ATTEND Nurse Practitioner Family
DX: R07.89 Other chest pain (principal); I50.42 Chronic combined systolic (congestive) and diastolic (congestive) heart failure; E11.21 Type 2 diabetes mellitus with diabetic nephropathy; E78.5 Hyperlipidemia, unspecified; H83.09 Labyrinthitis, unspecified ear; I11.0 Hypertensive heart disease with heart failure; E11.51 Type 2 diabetes mellitus with diabetic peripheral angiopathy without gangrene; I25.10 Atherosclerotic heart disease of native coronary artery without angina pectoris; I25.2 Old myocardial infarction; Z79.02 Long term (current) use of antithrombotics/antiplatelets; Z79.84 Long term (current) use of oral hypoglycemic drugs; Z79.899 Other long term (current) drug therapy; Z83.3 Family history of diabetes mellitus; Z95.1 Presence of aortocoronary bypass graft; Z95.5 Presence of coronary angioplasty implant and graft; Z90.49 Acquired absence of other specified parts of digestive tract; Z79.82 Long term (current) use of aspirin
CPT/HCPCS: 36415; 71045; 80053; 82962; 83036; 83735; 83880; 84484; 85025; 93005; 96372; G0378; J1815

== ENCOUNTER 2021-03-12 00:22 | Inpatient (IN) | payer MEDICAID, OTHER ==
[~2021-03-12] VITALS: Ht 152.4 cm; Wt 65.4 kg
[~2021-03-12 00:22] MED LIST changes: -ASPI-404 PO; +ASPI-543 PO; -ATOR40TA52 PO; -CHOL20007 PO; -CILO100T PO; +DOCU-94 PO; -ISOS30TA4 PO; +LISI20TA28 PO; +LOSA-69 PO; +MECL12.514 PO; -METF-370 PO; +METF-371 PO; -RANI-226 PO
[2021-03-12 02:58] LABS: Basophils # (auto) 0 10 ^3/uL (0-0.2); Basophils % (auto) 0.4 % (0.0-2.0); Eosinophils # (auto) 0.1 10 ^3/uL (0-0.8); Eosinophils % (auto) 1.1 % (0.0-7.0); Hematocrit 42.1 % (36.0-46.0); Lymphocytes % (auto) 10.6 % (10.0-50.0); Mean Corpuscular Hemoglobin 29.1 pg (28.0-32.0); Mean Corpuscular Hgb Conc. 33.2 g/dL (32.0-36.0); Mean Corpuscular Volume 87.7 fL (80.0-100.0); Monocytes # (auto) 0.4 10 ^3/uL (0-1.3); Monocytes % (auto) 4.7 % (0.0-12.0); Neutrophils # (auto) 7.9 10 ^3/uL (1.6-8.6); Neutrophils % (auto) 83.2 % (37.0-80.0); Nucleated Red Blood Cells % 0.2 %; Red Cell Distribution Width 13.6 % (11.8-14.3); White Blood Cell 9.5 10^3/uL (4.4-10.8)
[2021-03-12 03:20] LABS: Albumin 4.1 g/dL (3.4-5.0); BUN/Creatinine Ratio 17.6; Calcium 8.9 mg/dL (8.5-10.1); Magnesium 1.9 mg/dL (1.6-2.6); Potassium 4.3 mmol/L (3.5-5.1)
[2021-03-12 03:23] LABS: Bilirubin, Total 0.4 mg/dL (0.2-1.0); Total Protein 7.6 g/dL (6.4-8.2)
[2021-03-12] MEDS ORDERED: ASPirin 325 MG TAB PO ONE (04:30)
[2021-03-12] MEDS ORDERED: HYDROcodone-ACET 5/325MG TAB PO PRN (06:15)
[2021-03-12] MEDS ORDERED: MORPHINE SULFATE INJECTION 2 MG/ML SYRG IV PRN (06:15)
[2021-03-12] MEDS ORDERED: ONDANSETRON HCL 4 MG/2 ML VIAL IV PRN (06:15)
[2021-03-12] MEDS ORDERED: NITROGLYCERIN 0.4 MG SL TAB SL PRN (06:15)
[2021-03-12] MEDS ORDERED: MORPHINE SULFATE 4 MG/ML SYR/VIAL IV PRN (06:15)
[2021-03-12] MEDS ORDERED: ACETAMINOPHEN 325 MG TAB PO PRN (06:15)
[2021-03-12] MEDS ORDERED: DOCUSATE SOD 100 MG CAP PO PRN (06:15)
[2021-03-12] MEDS ORDERED: DEXTROSE (50%) 50ML SYRG IV PRN (06:15)
[2021-03-12] MEDS ORDERED: hydrALAZINE HCL 20 MG/ML VL IV PRN (06:15)
[2021-03-12] MEDS: ACCU-CHEK COMFORT CURVE STRIP VI SCH ×4 (07:00→22:27)
[2021-03-12] MEDS: InsuLIN REG 1unit/0.01ml Soln (100units/ml) SC SCH ×3 (07:00→17:52)
[2021-03-12 07:41] LABS: Basophils # (auto) 0 10 ^3/uL (0-0.2); Basophils % (auto) 0.7 % (0.0-2.0); Eosinophils # (auto) 0.1 10 ^3/uL (0-0.8); Eosinophils % (auto) 1.3 % (0.0-7.0); Hemoglobin 12.8 g/dL (12.2-16.2); Lymphocytes # (auto) 1.5 10 ^3/uL (0.4-5.4); Lymphocytes % (auto) 21.7 % (10.0-50.0); Mean Corpuscular Hemoglobin 28.9 pg (28.0-32.0); Mean Corpuscular Volume 87.8 fL (80.0-100.0); Monocytes # (auto) 0.5 10 ^3/uL (0-1.3); Monocytes % (auto) 6.8 % (0.0-12.0); Neutrophils # (auto) 4.9 10 ^3/uL (1.6-8.6); Neutrophils % (auto) 69.5 % (37.0-80.0); Red Blood Cells 4.44 10^6/uL (4.0-5.20); Red Cell Distribution Width 13.4 % (11.8-14.3)
[2021-03-12 08:11] LABS: Albumin 3.8 g/dL (3.4-5.0); Potassium 4.2 mmol/L (3.5-5.1)
[2021-03-12 08:20] LABS: BUN/Creatinine Ratio 17.9; Bilirubin, Total 0.3 mg/dL (0.2-1.0); Total Protein 6.9 g/dL (6.4-8.2)
[2021-03-12 09:28] LABS: Urine Bacteria FEW /hpf (None Seen); Urine Blood Negative /uL (Negative); Urine Specific Gravity 1.002 (1.001-1.035); Urine WBC <1 /hpf (0 - 5)
[2021-03-12] MEDS: ASPirin 81 mg TAB PO SCH (10:00)
[2021-03-12] MEDS: FAMOTIDINE (10MG/ML) 2ML VL IV SCH ×2 (10:00→22:37)
[2021-03-12] MEDS: ENOXAPARIN SOD 40 MG/0.4 ML SYRINGE SC SCH (10:00)
[2021-03-12] MEDS ORDERED: FAMO-12 PO (11:00)
[2021-03-12 11:05] VITALS: BP 145/67
[2021-03-12] MEDS ORDERED: CAR3125T OR (11:29)
[2021-03-12] MEDS ORDERED: GLIP5TAB12 PO (11:29)
[2021-03-12 12:30] VITALS: BP 145/67
[2021-03-12 12:50] LABS: INR 1.06 (0.9-1.15); Partial Thromboplastin Time 26.2 sec (23.6-33.0)
[2021-03-12] MEDS ORDERED: IODIXANOL 320MG/ML 100ML BTL IV ONE (13:53)
[2021-03-12] MEDS ORDERED: LIDOCAINE 2%HCL (LOCAL ANESTH.) INJ 20ML MDV ONE (13:53)
[2021-03-12] MEDS ORDERED: fentaNYL CITRATE 100 MCG/2 ML VL ONE (14:01)
[2021-03-12] MEDS ORDERED: MIDAZOLAM HCL 2MG/2ML 2ml VIAL (1mg/ml) ONE (14:01)
[2021-03-12] MEDS ORDERED: SODIUM CHL 0.9% 0 ML ONE (14:01)
[2021-03-12] MEDS ORDERED: ANGIOMAX 250 MG VIAL IV ONE (14:02)
[2021-03-12] MEDS ORDERED: hydrALAZINE HCL 20 MG/ML VL ONE (14:30)
[2021-03-12] MEDS: SODIUM CHLOR 0.9% PF (SALINE LOCK) 10ML VIAL/SYR IV SCH ×2 (16:25→22:00)
[2021-03-12 16:55] VITALS: BP 127/72
[2021-03-12 20:00] VITALS: BP 144/68
[2021-03-12 21:51] VITALS: BP 144/68
[2021-03-12] MEDS ORDERED: InsuLIN REG 1unit/0.01ml Soln (100units/ml) SC SCH (22:00)
[2021-03-12] MEDS ORDERED: ATORVASTATIN 20 MG TAB PO SCH (22:00)
[2021-03-13 05:07] VITALS: BP 138/67
[2021-03-13] MEDS: SODIUM CHLOR 0.9% PF (SALINE LOCK) 10ML VIAL/SYR IV SCH ×2 (06:00→14:02)
[2021-03-13] MEDS: InsuLIN REG 1unit/0.01ml Soln (100units/ml) SC SCH ×2 (06:34→11:55)
[2021-03-13] MEDS: ACCU-CHEK COMFORT CURVE STRIP VI SCH ×2 (06:35→11:54)
[2021-03-13 09:00] VITALS: BP 157/72
[2021-03-13] MEDS: ENOXAPARIN SOD 40 MG/0.4 ML SYRINGE SC SCH (09:43)
[2021-03-13] MEDS: ASPirin 81 mg TAB PO SCH (09:43)
[2021-03-13] MEDS: FAMOTIDINE (10MG/ML) 2ML VL IV SCH (09:43)
[2021-03-13] MEDS ORDERED: amLODIPine BESYLATE 5 MG TAB PO ONE (12:30)
[2021-03-13] MEDS ORDERED: ASPI-543 PO (12:44)
[2021-03-13] MEDS ORDERED: AMLO-496 PO (12:44)
[2021-03-13] MEDS ORDERED: CAR3125T OR (12:44)
[2021-03-13] MEDS ORDERED: LOSA-69 PO (12:44)
[2021-03-13 13:00] VITALS: BP 166/78
[2021-03-13] MEDS ORDERED: LOSARTAN POTASSIUM 50 MG TAB PO ONE (13:00)
[2021-03-13 13:47] LABS: Basophils # (auto) 0.1 10 ^3/uL (0-0.2); Basophils % (auto) 1.4 % (0.0-2.0); Eosinophils # (auto) 0.1 10 ^3/uL (0-0.8); Eosinophils % (auto) 1.8 % (0.0-7.0); Hematocrit 44.2 % (36.0-46.0); Hemoglobin 14.9 g/dL (12.2-16.2); Lymphocytes # (auto) 1.8 10 ^3/uL (0.4-5.4); Lymphocytes % (auto) 22.1 % (10.0-50.0); Mean Corpuscular Hemoglobin 29.9 pg (28.0-32.0); Mean Corpuscular Hgb Conc. 33.8 g/dL (32.0-36.0); Mean Corpuscular Volume 88.5 fL (80.0-100.0); Monocytes # (auto) 0.6 10 ^3/uL (0-1.3); Monocytes % (auto) 7.7 % (0.0-12.0); Neutrophils # (auto) 5.4 10 ^3/uL (1.6-8.6); Nucleated Red Blood Cells % 0.1 %; Red Blood Cells 4.99 10^6/uL (4.0-5.20); Red Cell Distribution Width 13.8 % (11.8-14.3); White Blood Cell 8.1 10^3/uL (4.4-10.8)
[2021-03-13 14:03] LABS: Albumin 4.3 g/dL (3.4-5.0); Calcium 9.8 mg/dL (8.5-10.1); Potassium 4.4 mmol/L (3.5-5.1)
[2021-03-13 14:06] LABS: BUN/Creatinine Ratio 17.6; Bilirubin, Total 0.5 mg/dL (0.2-1.0)
[2021-03-13 14:57] VITALS: BP 137/76
[2021-03-14] MEDS ORDERED: LOSARTAN POTASSIUM 50 MG TAB PO SCH (10:00)
[2021-03-14] MEDS ORDERED: FAMOTIDINE (10MG/ML) 2ML VL IV SCH (10:00)
[2021-03-14] MEDS ORDERED: amLODIPine BESYLATE 5 MG TAB PO SCH (10:00)
== END 2021-03-13 15:30 | disposition home or self-care (01) | DRG 281 ==
LOC: EDBD 00:22 → ER 00:22 → TELE 06:04 → TELE-WESTW 10:28
PROVIDERS: ADMIT Nurse Practitioner Family; ATTEND Internal Medicine Nephrology
PROC: 4A023N7 Measurement of Cardiac Sampling and Pressure, Left Heart, Percutaneous Approach (ICD-10-PCS; principal; 2021-03-12)
PROC: B211YZZ Fluoroscopy of Multiple Coronary Arteries using Other Contrast (ICD-10-PCS; 2021-03-12)
PROC: B215YZZ Fluoroscopy of Left Heart using Other Contrast (ICD-10-PCS; 2021-03-12)
PROC: B212YZZ Fluoroscopy of Single Coronary Artery Bypass Graft using Other Contrast (ICD-10-PCS; 2021-03-12)
PROC: B218YZZ Fluoroscopy of Left Internal Mammary Bypass Graft using Other Contrast (ICD-10-PCS; 2021-03-12)
DX: R00.1 Bradycardia, unspecified (principal); I21.A1 Myocardial infarction type 2; I50.32 Chronic diastolic (congestive) heart failure; E11.51 Type 2 diabetes mellitus with diabetic peripheral angiopathy without gangrene; E78.5 Hyperlipidemia, unspecified; E89.0 Postprocedural hypothyroidism; I11.0 Hypertensive heart disease with heart failure; I25.10 Atherosclerotic heart disease of native coronary artery without angina pectoris; Z20.822 Contact with and (suspected) exposure to COVID-19; Z79.84 Long term (current) use of oral hypoglycemic drugs; Z95.1 Presence of aortocoronary bypass graft; I25.2 Old myocardial infarction; Z83.3 Family history of diabetes mellitus; Z86.73 Personal history of transient ischemic attack (TIA), and cerebral infarction without residual deficits; Z87.11 Personal history of peptic ulcer disease; Z98.61 Coronary angioplasty status; Z90.49 Acquired absence of other specified parts of digestive tract
CPT/HCPCS: 36415; 71045; 80053; 81001; 82962; 83735; 83880; 84484; 85025; 85610; 85730; 87426; 93005; 93306; 93459; 99152; 99153; G0378; J1815; J2250; J3490; Q9967

== ENCOUNTER 2023-02-21 07:57 | Emergency (ER) | payer OTHER, MEDICAID ==
[~2023-02-21] VITALS: Ht 152.4 cm; Wt 55.9 kg
[~2023-02-21 07:57] MED LIST changes: +ACET-1881 PO; +AMLO1TAB23 PO; +ASPI-394; +ASPI1TAB19 PO; +ATOR40TA52 PO; +CAR3125T OR; +CARV12.544 PO; +CHOL200043; -DOCU-94 PO; +ESOM20CA PO; +ESOM40CA39 PO; +FAMO-12 PO; +FAMO20TA10 PO; +GABA-1250 PO; -GABA300C10 PO; +GEMF-66; +GLIP5TAB12 PO; +HYDR12.59 PO; -LISI20TA28 PO; +LISI20TA56 PO; +LISI30TA8 PO; -LOSA-69 PO; +LOSA50TA46 PO; -MECL12.514 PO; +MECL1TAB31 PO; +METF-929 PO; -SUCR1TAB PO; +SUCR1TAB36 PO
[2023-02-21] MEDS ORDERED: HYDROcodone-ACET 10/325MG TAB PO ONE (10:45)
[2023-02-21] MEDS ORDERED: HYDROcodone-ACET 7.5/325MG TAB PO ONE (11:00)
[2023-02-21] MEDS ORDERED: PRED10TA PO (11:02)
[2023-02-21 11:08] VITALS: BP 122/80; PULSE 66; RESP 18; TEMP 98.7; O2SAT 98
[2023-02-21 11:14] LABS: Urine Bacteria NONE SEEN /hpf (None Seen); Urine Blood Negative /uL (Negative); Urine Clarity Clear (Clear); Urine Protein, UAD Negative (Negative); Urine Urobilinogen Normal (Negative); Urine WBC 1 /hpf (0 - 5)
[2023-02-21 11:16] LABS: Urine Color Straw (Yellow)
== END 2023-02-21 12:16 | disposition home or self-care (01) ==
LOC: ER 07:57 → MERGE 07:57 → ER 12:16
DX: G89.29 Other chronic pain (principal); M54.50 Low back pain, unspecified; Z79.899 Other long term (current) drug therapy
CPT/HCPCS: 72131; 81001; 82962; 93005

== ENCOUNTER 2024-01-25 11:12 | Emergency (ER) | payer OTHER, MEDICAID ==
[~2024-01-25] VITALS: Ht 152.4 cm; Wt 54.9 kg
[~2024-01-25 11:12] MED LIST changes: -CAR3125T OR; +CARV-214 OR; -GLIP5TAB12 PO; +GLIP5TAB21 PO; +LOSA-534 PO; -LOSA50TA46 PO; +MECL12.586 PO; -MECL1TAB31 PO; +PRED10TA PO
[2024-01-25 11:14] VITALS: BP 187/66; RESP 17; O2SAT 96
[2024-01-25 11:38] LABS: Basophils # (auto) 0 10 ^3/uL (0-0.2); Basophils % (auto) 0.5 % (0.0-2.0); Eosinophils # (auto) 0.1 10 ^3/uL (0-0.8); Eosinophils % (auto) 1.3 % (0.0-7.0); Hematocrit 43.8 % (36.0-46.0); Hemoglobin 14.7 g/dL (12.2-16.2); Lymphocytes # (auto) 1.7 10 ^3/uL (0.4-5.4); Lymphocytes % (auto) 24.6 % (10.0-50.0); Mean Corpuscular Hemoglobin 30.8 pg (28.0-32.0); Mean Corpuscular Hgb Conc. 33.5 g/dL (32.0-36.0); Mean Corpuscular Volume 91.8 fL (80.0-100.0); Monocytes # (auto) 0.6 10 ^3/uL (0-1.3); Neutrophils # (auto) 4.5 10 ^3/uL (1.6-8.6); Neutrophils % (auto) 64.6 % (37.0-80.0); Nucleated Red Blood Cells % 0.1 %; Platelet Count (auto) 241 10^3/uL (140-450); Red Blood Cells 4.77 10^6/uL (4.0-5.20); Red Cell Distribution Width 13.7 % (11.8-14.3)
[2024-01-25 11:56] LABS: INR 1.07 (0.9-1.15); Partial Thromboplastin Time 26.2 SEC (24.5-34.5); Prothrombin Time 11.3 sec (9.3-11.8)
[2024-01-25] MEDS: amLODIPine BESYLATE 5 MG TAB PO ONE (12:03)
[2024-01-25] MEDS: ASPirin 81 mg TAB PO ONE (12:04)
[2024-01-25 12:09] LABS: Alanine Aminotransferase 15 U/L (7-40); Albumin 4.9 g/dL (3.2-4.8); Alkaline Phosphatase 92 U/L (46-116); Anion Gap 8 (5-15); Aspartate Aminotransferase 15 U/L (13-40); BUN/Creatinine Ratio 12.7 (10.0-20.0); Bilirubin, Total 0.5 mg/dL (0.2-1.0); Blood Urea Nitrogen 14 mg/dL (9-23); Calcium 10.5 mg/dL (8.7-10.4); Carbon Dioxide 28 mmol/L (20-31); Chloride 102 mmol/L (98-107); Glucose 199 mg/dL (74-106); Potassium 4.5 mmol/L (3.5-5.1); Sodium 138 mmol/L (136-145); Total Protein 7.9 g/dL (5.7-8.2)
[2024-01-25 12:12] VITALS: PULSE 65
== END 2024-01-25 13:38 | disposition left against medical advice (07) ==
LOC: ER 11:12
DX: I16.0 Hypertensive urgency (principal); I82.409 Acute embolism and thrombosis of unspecified deep veins of unspecified lower extremity; I26.99 Other pulmonary embolism without acute cor pulmonale; E11.65 Type 2 diabetes mellitus with hyperglycemia; K21.9 Gastro-esophageal reflux disease without esophagitis; I11.0 Hypertensive heart disease with heart failure; I50.9 Heart failure, unspecified; I25.10 Atherosclerotic heart disease of native coronary artery without angina pectoris; E78.5 Hyperlipidemia, unspecified; I25.2 Old myocardial infarction; Z86.73 Personal history of transient ischemic attack (TIA), and cerebral infarction without residual deficits; Z90.49 Acquired absence of other specified parts of digestive tract; Z90.89 Acquired absence of other organs; Z95.1 Presence of aortocoronary bypass graft; Z79.82 Long term (current) use of aspirin; Z79.52 Long term (current) use of systemic steroids; Z79.84 Long term (current) use of oral hypoglycemic drugs; Z79.899 Other long term (current) drug therapy; Z79.02 Long term (current) use of antithrombotics/antiplatelets
CPT/HCPCS: 36415; 71045; 80053; 83880; 84484; 85025; 85379; 85610; 85730; 93005

== ENCOUNTER 2024-01-31 22:57 | Inpatient (IN) | payer OTHER, MEDICAID ==
[~2024-01-31] VITALS: Ht 152.4 cm; Wt 58.7 kg
--- NOTE | 2024-01-31 23:11 | ED.PDOC ---
HPI Comments HPI: Poor Historian. 72-year-old female presents to emergency department for evaluation of left-sided chest pain that started at rest today at 6:00 p.m.. Pain radiates to the left shoulder. Denies any other acute symptoms. Chest pain was associated with slight dizziness. Denies any nausea vomiting or diarrhea. Earlier today patient noted that her blood pressure was in the 200s systolically at home. Patient took her blood pressure medications prior to arrival. Patient is on aspirin and Plavix. Past Medcial History: Hypertension, hyperlipidemia, diabetes, coronary artery disease, GERD Past Surgical History: CABG, carpal tunnel syndrome, kidney tumor resection back surgery REVIEW OF SYSTEMS: CONSTITUTIONAL: Denies acute: fever, diaphoresis, chills, generalized weakness. HEAD: Denies acute: headache, photophobia Eyes: Denies acute: Double vision, vision loss, eye pain, eye discharge. EARS: Denies acute: tinnitus, hearing loss, ear discharge, ear pain, THROAT: Denies acute: sore throat, swelling, difficulty swallowing , pain with swallowing, change in voice. NECK: Denies acute: neck pain, neck swelling, stiff neck. HEART: Denies acute : palpitations, LUNGS: Denies acute: SOB, wheezing, cough, hemoptysis ABDOMEN: Denies acute: abdominal pain, Nausea, Vomiting, diarrhea, melena , hematemesis, hematochezia SKIN: Denies acute: rash, redness, lesions, itchiness. EXTREMITIES: Denies acute: calf pain, numbness, tingling, weakness, denies pain in extremity. Denies acute: Low back pain. Neuro: Denies acute: focal neurological deficit, motor or sensory focal neurological deficit, tremors, seizure like activity, confusion, change in mental status, loss of bowel or bladder function, cauda equina like symptoms. : Denies acute: dysuria, hematuria, flank pain, increase in urinary frequency. PSYCH: Denies acute: hallucination, suicidal ideation, homicidal ideation. FEMALE: Denies acute: abnormal vaginal bleeding, foul odor, unusual discharge. PHYSICAL EXAM: General: no acute distress, awake and alert. Head: normocephalic, atraumatic. Neck: supple, trachea is midline, no swelling. Throat: Normal phonation. Eyes:, no erythema, no purulent discharge, no proptosis, no icterus. Heart: regular rate, regular rhythm, no significant murmur appreciated. Lungs: no apparent respiratory distress, Able to speak in full sentences. No wheezing, no rhonchi, no crackles. No stridors Clear to auscultation bilaterally. Abdomen: non tender to palpation, non distended, soft, no guarding, no rebound, + bowel sounds. Neuro: Awake, Alert, oriented to name, self, situation, follows commands GCS=15. Speech is normal. Skin: no petechia, no purpura, no cyanosis, non-pale, not jaundice. Lower extremities: --no - Pitting edema no deformity, no focal swelling, no calf TTP. Makes eye contact. moves all four extremities. Face: no apparent facial droop. No CVA tenderness to percussion bilaterally. Ambulating in the ED independently. Ears: Normal appearing TM b/l, Stroke: finger to nose cerebellar testing is intact. No pronator drift. Symmetrical wellness trainer muscle strength b/l PERRLA, EOM-I CN 2-12 are grossly intact, Pedal pulses are palpable. No nystagmus. No nuchal rigidity, Kernig's sign, Brudzinski's sign, no meningeal signs. Chief Complaint: Chest Pain Time Seen by MD: 23:01 Reviewed Notes: Nurses Notes, Medications, Allergies Allergies: Coded Allergies: NO KNOWN ALLERGIES (Unverified , 01/31/24) Information Source: Patient Was a procedure done? Was a procedure done?: No CP Differential Dx Differential Diagnosis: N/A Differential Diagnosis: Other (Ddx include but not limitied to gastritis, musculoskeletal pain, radiculopathy, atypical chest pain, dissection, aneurysm, ACS, unstable angina, hiatal hernia, GERD, anxiety, costochondritis, PE, pneumothroax, neoplasm, cardiac ischemia, drug abuse, anemia.) X-Ray, Labs, Meds, VS Vital Signs Date Time Temp Pulse Resp B/P (MAP) Pulse Ox O2 Delivery O2 Flow Rate FiO2 02/01/24 00:30 56 10 158/54 (88) 97 02/01/24 00:05 55 02/01/24 00:00 58 21 143/56 (85) 95 02/01/24 00:00 56 01/31/24 23:37 58 12 97 Room Air* 0 21 01/31/24 23:37 98.0 58 12 186/65 (105) 97 98.0 01/31/24 23:37 186/65 01/31/24 23:07 97.4 62 16 223/74 (123) 97 01/31/24 23:05 64 Lab Test 02/01/24 00:13 01/31/24 23:17 01/31/24 23:15 01/31/24 23:14 Range/Units Troponin I High Sensitivity 40 *H 41 *H </=34 ng/L Thyroid Stimulating Hormone (TSH) 0.62 0.55-4.78 uIU/mL Urine Color Colorless Yellow Urine Clarity Clear Clear Urine pH 7.0 5.0-9.0 Urine Specific [place] 1.004 1.001-1.035 Urine Protein Negative Negative Urine Ketones Negative Negative Urine Blood Negative Negative /uL Urine Nitrite Negative Negative Urine Bilirubin Negative Negative Urine Urobilinogen Normal Negative mg/dL Urine Leukocyte Esterase Negative Negative /uL Urine RBC 1 0 - 4 /hpf Urine WBC None seen 0 - 5 /hpf Urine Squamous Epithelial Cells None seen <5 /hpf Urine Bacteria None seen None Seen /hpf Urine Glucose Normal Normal mg/dL Urine Opiates Screen Pending Urine Fentanyl Screen Pending Urine Barbiturates Screen Pending Urine Phencyclidine Screen Pending Urine Amphetamines Screen Pending Urine Benzodiazepines Screen Pending Urine Cocaine Screen Pending Urine Cannabinoids Screen Pending White Blood Count 6.4 4.4-10.8 10^3/uL Red Blood Count 4.39 4.0-5.20 10^6/uL Hemoglobin 13.5 12.2-16.2 g/dL Hematocrit 40.0 36.0-46.0 % Mean Corpuscular Volume 91.1 80.0-100.0 fL Mean Corpuscular Hemoglobin 30.7 28.0-32.0 pg Mean Corpuscular Hemoglobin Concent 33.7 32.0-36.0 g/dL Red Cell Distribution Width 13.6 11.8-14.3 % Platelet Count 209 140-450 10^3/uL Mean Platelet Volume 6.9 6.9-10.8 fL Neutrophils (%) (Auto) 56.9 37.0-80.0 % Lymphocytes (%) (Auto) 29.6 10.0-50.0 % Monocytes (%) (Auto) 11.2 0.0-12.0 % Eosinophils (%) (Auto) 1.7 0.0-7.0 % Basophils (%) (Auto) 0.6 0.0-2.0 % Neutrophils # (Auto) 3.7 1.6-8.6 10 ^3/uL Lymphocytes # (Auto) 1.9 0.4-5.4 10 ^3/uL Monocytes # (Auto) 0.7 0-1.3 10 ^3/uL Eosinophils # (Auto) 0.1 0-0.8 10 ^3/uL Basophils # (Auto) 0 0-0.2 10 ^3/uL Nucleated Red Blood Cells 0.1 % Prothrombin Time 10.9 9.3-11.8 sec Prothrombin Time INR 1.03 0.9-1.15 Activated Partial Thromboplast Time 26.5 24.5-34.5 SEC Sodium Level 135 L 136-145 mmol/L Potassium Level 4.5 3.5-5.1 mmol/L Chloride Level 100 98-107 mmol/L Carbon Dioxide Level 27 20-31 mmol/L Anion Gap 8 5-15 Blood Urea Nitrogen 14 9-23 mg/dL Creatinine 1.00 0.550-1.02 mg/dL Glomerular Filtration Rate Calc 57 >90 mL/min BUN/Creatinine Ratio 14.0 10.0-20.0 Serum Glucose 155 H 74-106 mg/dL Calcium Level 10.3 8.7-10.4 mg/dL Total Bilirubin 0.4 0.2-1.0 mg/dL Aspartate Amino Transferase (AST) 13 13-40 U/L Alanine Aminotransferase (ALT) 13 7-40 U/L Alkaline Phosphatase 94 46-116 U/L B-Type Natriuretic Peptide 179.66 0-100 pg/mL Total Protein 7.8 5.7-8.2 g/dL Albumin 5.2 H 3.2-4.8 g/dL POC Glucose 157 H 70-106 mg/dl Current Medications Medications (Trade) Dose Ordered Sig/Yoana Route Start Time Stop Time Status Last Admin Aspirin 325 mg ONCE ONCE PO 01/31/24 23:15 01/31/24 23:16 DC 01/31/24 23:29 Nitroglycerin (Ntrostat Sublingual) 0.4 mg ONCE ONCE SL 01/31/24 23:15 01/31/24 23:16 DC 01/31/24 23:[address] [address] Ph: [phone] DIAGNOSTIC IMAGING Diagnostic Imaging Report : [id number] Signed PATIENT: RAJAN BOSWELL ACCT: [id number] UNIT: [id number] : 1940 LOC: ER ROOM / BED: / AGE / SEX: 83 / F ADM STATUS: REG ER SERVICE 11 ORDERING PHYSICIAN: ADELFO CUNNINGHAM DO PROCEDURE(s): HWOCT - HEAD WITHOUT CONTRAST REASON: HTN, dizzy ORDER NUMBER(s): [id number], ACCESSION NUMBER(s): [id number] EXAM: CT HEAD WITHOUT CONTRAST HISTORY: HTN, dizzy COMPARISON: None TECHNIQUE: Axial images were obtained and reformatted in coronal and sagittal planes. All CT scans at this medical facility are performed using dose modulation techniques as appropriate to a performed exam including the following: Automated exposure control was utilized; adjustment of the MA and/or KV according to patient size; and use of iterative reconstruction technique. CT Dose: CTDI volume is 51 mGy. Dose-length product is 899 mGy*cm FINDINGS: Supratentorial Region: No evidence for large acute territorial ischemia. No intracranial hemorrhage is noted. Left parietal lobe encephalomalacia/gliosis. Posterior Fossa: No acute abnormality. Brainstem: Unremarkable. Sellar/Suprasellar Region: Unremarkable. Ventricles, Cisterns, Sulci: Age-appropriate. Orbits: Unremarkable. Paranasal Sinuses: Unremarkable. Mastoid Air Cells: Unremarkable. Vasculature: Unremarkable. Bones/Soft Tissues: No acute abnormality. Other: None. IMPRESSION: No acute intracranial process. 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 ATED BY: ALEXANDR BERRIOS DO DICTATED DATE/TIME: 02/01/2423 SIGNED BY: ALEXANDR BERRIOS DO SIGNED DATE/TIME: 02/01/2423 CC: [address] [address] Ph: [phone] DIAGNOSTIC IMAGING Diagnostic Imaging Report : [id number] Signed PATIENT: RAJAN BOSWELL ACCT: [id number] UNIT: [id number] : 1940 LOC: ER ROOM / BED: / AGE / SEX: 83 / F ADM STATUS: REG ER SERVICE 01 ORDERING PHYSICIAN: ADELFO CUNNINGHAM DO PROCEDURE(s): CXRP - CHEST PORTABLE REASON: CHEST PAIN ORDER NUMBER(s): [id number], ACCESSION NUMBER(s): [id number] CHEST RADIOGRAPH Indication:CHEST PAIN Technique: Single frontal view of the chest was obtained Comparison: None FINDINGS: Lines and Tubes: None Lungs: No focal consolidation. Pleura: No effusion. No pneumothorax. Cardiomediastinal contours: Unremarkable Bones: No acute osseous abnormality. IMPRESSION: No acute cardiopulmonary disease. ATED BY: ALEXANDR BERRIOS DO DICTATED DATE/TIME: 01/31/242356 SIGNED BY: ALEXANDR BERRIOS DO SIGNED DATE/TIME: 01/31/242356 CC: Time of 1ST Reevaluation: 03:01 Reevaluation 1ST: Improved Patient Education/Counseling: Diagnosis, Treatment Family Education/Counseling: No Family Present Comments Patient presented with the above HPI.---cardiac---workup was initiated. patient was found with the above mentioned diagnosis. Patient was given: Aspirin and nitroglycerin Patient ED course and VS have been stabilized. Patient has been reassessed in the ED and remained in a stable condition. Pertinent incidental findings were discussed with the patient and/or family. Patient/family voices understanding and is agreeable with plan. Patient has been observed in the ED adequate length of time to insure improvement/stability. patient was admitted to the medicine team for further evaluation and treatment of their presentation. All the reports of any imaging studies that were ordered by myself were reviewed by myself. Departure 1 Departure Time of Disposition: 23:11 Impression: Primary Impression: Chest pain Additional Impressions: Hypertensive crisis Elevated troponin Disposition: ADMITTED INPATIENT Admit to: Tele Condition: Guarded Discharged With: Self Critical Care Note Critical Care Time?: Yes (45 min-critical care time only) Heart Score Heart Score: Heart Score Response (Comments) Value History Moderate Suspicious 1 EKG Normal 0 Age >65 2 Risk Factors >3 or Hx ASHD 2 Troponin 1-2 x's Normal limit 1 Total 6 ADELFO CUNNINGHAM DO Jan 31, 2024 23:11
[2024-01-31 23:27] LABS: Basophils # (auto) 0 10 ^3/uL (0-0.2); Basophils % (auto) 0.6 % (0.0-2.0); Eosinophils # (auto) 0.1 10 ^3/uL (0-0.8); Eosinophils % (auto) 1.7 % (0.0-7.0); Hemoglobin 13.5 g/dL (12.2-16.2); Lymphocytes # (auto) 1.9 10 ^3/uL (0.4-5.4); Lymphocytes % (auto) 29.6 % (10.0-50.0); Mean Corpuscular Hemoglobin 30.7 pg (28.0-32.0); Mean Corpuscular Hgb Conc. 33.7 g/dL (32.0-36.0); Mean Corpuscular Volume 91.1 fL (80.0-100.0); Monocytes # (auto) 0.7 10 ^3/uL (0-1.3); Monocytes % (auto) 11.2 % (0.0-12.0); Neutrophils # (auto) 3.7 10 ^3/uL (1.6-8.6); Neutrophils % (auto) 56.9 % (37.0-80.0); Nucleated Red Blood Cells % 0.1 %; Platelet Count (auto) 209 10^3/uL (140-450); Red Blood Cells 4.39 10^6/uL (4.0-5.20); Red Cell Distribution Width 13.6 % (11.8-14.3); White Blood Cell 6.4 10^3/uL (4.4-10.8)
[2024-01-31] MEDS: ASPirin 325 MG TAB PO ONE (23:29)
[2024-01-31 23:34] LABS: Urine Bacteria None Seen /hpf (None Seen); Urine WBC None Seen /hpf (0 - 5)
[2024-01-31 23:37] VITALS: PULSE 58; RESP 12; O2SAT 97
[2024-01-31] MEDS: NITROGLYCERIN 0.4 MG SL TAB SL ONE (23:37)
[2024-01-31 23:40] LABS: Alanine Aminotransferase 13 U/L (7-40); Albumin 5.2 g/dL (3.2-4.8); Alkaline Phosphatase 94 U/L (46-116); Anion Gap 8 (5-15); Aspartate Aminotransferase 13 U/L (13-40); Blood Urea Nitrogen 14 mg/dL (9-23); Calcium 10.3 mg/dL (8.7-10.4); Carbon Dioxide 27 mmol/L (20-31); Chloride 100 mmol/L (98-107); Glucose 155 mg/dL (74-106); Potassium 4.5 mmol/L (3.5-5.1); Sodium 135 mmol/L (136-145)
[2024-01-31 23:41] LABS: Bilirubin, Total 0.4 mg/dL (0.2-1.0); Total Protein 7.8 g/dL (5.7-8.2)
[2024-01-31 23:43] LABS: Urine Blood Negative /uL (Negative); Urine Clarity Clear (Clear); Urine Color Colorless (Yellow); Urine Protein, UAD Negative (Negative); Urine Specific Gravity 1.004 (1.001-1.035); Urine Urobilinogen Normal (Negative)
[2024-01-31] MEDS: LABETALOL HCL 20 MG/4 ML VL IV ONE (23:45)
[2024-02-01] VITALS (7 sets, daily range): BP systolic 121–146; BP diastolic 44–55; PULSE 55–68; RESP 16–20; TEMP 97.3–97.9; O2SAT 94–99
--- NOTE | 2024-02-01 | DVH ---
CHEST RADIOGRAPH Indication:CHEST PAIN Technique: Single frontal view of the chest was obtained Comparison: None FINDINGS: Lines and Tubes: None Lungs: No focal consolidation. Pleura: No effusion. No pneumothorax. Cardiomediastinal contours: Unremarkable Bones: No acute osseous abnormality. IMPRESSION: No acute cardiopulmonary disease.
--- NOTE | 2024-02-01 00:27 | DVH ---
EXAM: CT HEAD WITHOUT CONTRAST HISTORY: HTN, dizzy COMPARISON: None TECHNIQUE: Axial images were obtained and reformatted in coronal and sagittal planes. All CT scans at this medical facility are performed using dose modulation techniques as appropriate t o a performed exam including the following: Automated exposure control was utilized; adjustment of th e MA and/or KV according to patient size; and use of iterative reconstruction technique. CT Dose: CTDI volume is 51 mGy. Dose-length product is 899 mGy*cm FINDINGS: Supratentorial Region: No evidence for large acute territorial ischemia. No intracranial hemorrhage is noted. Left parietal lobe encephalomalacia/gliosis. Posterior Fossa: No acute abnormality. Brainstem: Unremarkable. Sellar/Suprasellar Region: Unremarkable. Ventricles, Cisterns, Sulci: Age-appropriate. Orbits: Unremarkable. Paranasal Sinuses: Unremarkable. Mastoid Air Cells: Unremarkable. Vasculature: Unremarkable. Bones/Soft Tissues: No acute abnormality. Other: None. IMPRESSION: No acute intracranial process. 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
[2024-02-01] MEDS ORDERED: ONDANSETRON HCL 4 MG/2 ML VIAL IV PRN (00:45)
[2024-02-01] MEDS ORDERED: MORPHINE SULFATE INJ 2 MG/ml SYRG IV PRN ×2 (00:45)
[2024-02-01] MEDS ORDERED: NITROGLYCERIN 0.4 MG SL TAB SL PRN (00:45)
[2024-02-01] MEDS ORDERED: ACETAMINOPHEN 325 MG TAB PO PRN (00:45)
--- NOTE | 2024-02-01 00:53 | DVHHPRES ---
History of Present Illness Resident Creating Document: MARKO FRAIRE RESIDENT History of Present Illness Jenna Koch is 72 years old Belarusian-speaking female with a PMH of HTN, type 2 DM, HLD, CVA, CAD,GERD presented to the ED with the chief complaints of left sided chest pain since 6:00 p.m. on the day of admission. Patient reported she started having pressure-like pain in the left side of the chest which is radiating to left shoulder which is relieved by taking nitroglycerin, associated with dizziness and 1 episode of diarrhea. On my assessment patient denies nausea, vomiting, diaphoresis, fever, chills and other associated symptoms. Patient reported that her blood pressure at home was around 200s. Past Medical History Hypertension, hyperlipidemia, diabetes, coronary artery disease, GERD, CVA Past Surgical History CABG, carpal tunnel syndrome, kidney tumor resection back surgery Family History: None Past Social History Lives at home with son. Denies smoking, alcohol and other drug abuse Review of Systems Constitutional: No: Fever, Chills, Sweats, Weakness, Malaise, Other Eyes: No: Pain, Vision change, Conjunctivae inflammation, Eyelid inflammation, Other, Redness ENT: No: Ear pain, Ear discharge, Nose pain, Nose discharge, Nose congestion, Mouth pain, Mouth swelling, Throat pain, Throat swelling, Other Respiratory: No: Cough, Dry, Shortness of breath, SOB with excertion, Wheezing, Hemoptysis, Pleuritic Pain, Sputum, Wheezing, Other Cardiovascular: Chest Pain Gastrointestinal: No: Nausea, Vomiting, Abdominal Pain, Diarrhea, Constipation, Melena, Hematochezia, Other Genitourinary: No Dysuria, No Frequency, No Incontinence, No Hematuria, No Retention, No Other Musculoskeletal: No: other, neck pain, shoulder pain, arm pain, back pain, hand pain, leg pain, foot pain Skin: No: Rash, Lesions, Jaundice, Bruising, Other Neurological: No: Weakness, Numbness, Incoordination, Change in speech, Confusion, Seizures, Other Allergies: Coded Allergies: NO KNOWN ALLERGIES (Unverified , 01/31/24) Exam Vital Signs Vital Signs Date Time Temp Pulse Resp B/P (MAP) Pulse Ox O2 Delivery O2 Flow Rate FiO2 02/01/24 00:05 55 01/31/24 23:37 12 97 Room Air* 0 21 01/31/24 23:37 98.0 186/65 (105) 98.0 Exam Pt is lying on bed General Appearance: Alert, Oriented X3, Cooperative, Not in acute distress HEENT: Atraumatic, Mucous membranes moist/pink Respiratory: Clear to auscultation, Normal air movement, No added sounds Cardiovascular: Regular rate, Normal S1, Normal S2, No murmurs Abdominal: Active bowel sounds, Soft, no distention, no tenderness Extremities: No edema, Normal pulses, No tenderness/swelling Skin: No Significant rash, except past surgical scars Neuro: Normal speech, sensorimotor deficits none Psych/Mental Status: Mental status NL, Mood NL Nurse was there as sharperone during examination Labs/Xrays Labs Test 02/01/24 00:13 01/31/24 23:17 01/31/24 23:15 01/31/24 23:14 Range/Units Troponin I High Sensitivity 40 *H </=34 ng/L Urine Color Colorless Yellow Urine Clarity Clear Clear Urine pH 7.0 5.0-9.0 Urine Specific [place] 1.004 1.001-1.035 Urine Protein Negative Negative Urine Ketones Negative Negative Urine Blood Negative Negative /uL Urine Nitrite Negative Negative Urine Bilirubin Negative Negative Urine Urobilinogen Normal Negative mg/dL Urine Leukocyte Esterase Negative Negative /uL Urine RBC 1 0 - 4 /hpf Urine WBC None seen 0 - 5 /hpf Urine Squamous Epithelial Cells None seen <5 /hpf Urine Bacteria None seen None Seen /hpf Urine Glucose Normal Normal mg/dL White Blood Count 6.4 4.4-10.8 10^3/uL Red Blood Count 4.39 4.0-5.20 10^6/uL Hemoglobin 13.5 12.2-16.2 g/dL Hematocrit 40.0 36.0-46.0 % Mean Corpuscular Volume 91.1 80.0-100.0 fL Mean Corpuscular Hemoglobin 30.7 28.0-32.0 pg Mean Corpuscular Hemoglobin Concent 33.7 32.0-36.0 g/dL Red Cell Distribution Width 13.6 11.8-14.3 % Platelet Count 209 140-450 10^3/uL Mean Platelet Volume 6.9 6.9-10.8 fL Neutrophils (%) (Auto) 56.9 37.0-80.0 % Lymphocytes (%) (Auto) 29.6 10.0-50.0 % Monocytes (%) (Auto) 11.2 0.0-12.0 % Eosinophils (%) (Auto) 1.7 0.0-7.0 % Basophils (%) (Auto) 0.6 0.0-2.0 % Neutrophils # (Auto) 3.7 1.6-8.6 10 ^3/uL Lymphocytes # (Auto) 1.9 0.4-5.4 10 ^3/uL Monocytes # (Auto) 0.7 0-1.3 10 ^3/uL Eosinophils # (Auto) 0.1 0-0.8 10 ^3/uL Basophils # (Auto) 0 0-0.2 10 ^3/uL Nucleated Red Blood Cells 0.1 % Sodium Level 135 L 136-145 mmol/L Potassium Level 4.5 3.5-5.1 mmol/L Chloride Level 100 98-107 mmol/L Carbon Dioxide Level 27 20-31 mmol/L Anion Gap 8 5-15 Blood Urea Nitrogen 14 9-23 mg/dL Creatinine 1.00 0.550-1.02 mg/dL Glomerular Filtration Rate Calc 57 >90 mL/min BUN/Creatinine Ratio 14.0 10.0-20.0 Serum Glucose 155 H 74-106 mg/dL Calcium Level 10.3 8.7-10.4 mg/dL Total Bilirubin 0.4 0.2-1.0 mg/dL Aspartate Amino Transferase (AST) 13 13-40 U/L Alanine Aminotransferase (ALT) 13 7-40 U/L Alkaline Phosphatase 94 46-116 U/L B-Type Natriuretic Peptide 179.66 0-100 pg/mL Total Protein 7.8 5.7-8.2 g/dL Albumin 5.2 H 3.2-4.8 g/dL POC Glucose 157 H 70-106 mg/dl Assessment/Plan Assessment/Plan # chest pain rule out ACS -reviewed EKG -ordered troponins mildly elevated -consulted cardiology for further management -ordered chest pain protocol # Hypertensive urgency vs emergency # dizziness -head CT showed no acute intracranial abnormality -continuously monitor blood pressure -hydralazine 10 mg prn # CAD s/p CABG -continue home meds # type 2 DM -continuously monitor blood glucose -consider mild ISS if needed Cardiac diet No GI PPX Lovenox Reconcile home meds Goals of care discussed with the patient for more than 27 minutes: Full code status Case discussed with Dr. Augustine, patient and nurse Plan discussed with: Patient, Son, Other (RN) My Orders Orders - MARKO FRAIRE RESIDENT Procedure Category Date Status Time Admit ADMIT 02/01/24 Transmitted 00:40 Allergies [facility] 02/01/24 In Process 00:40 Code Status CODE 02/01/24 Transmitted 00:40 Sodium Chloride Lock PHA 02/01/24 Logged (Saline Lock Ns) 06:00 Acetaminophen Tablet PHA 02/01/24 Logged (Tylenol Tablet) 00:45 Ondansetron Hcl PHA 02/01/24 Logged (Zofran) 00:45 Complete Blood Count LAB 02/01/24 Logged 04:00 Comprehensive LAB 02/01/24 Logged Metabolic Panel 04:00 Cardiac DIET 02/01/24 Transmitted Diet-2gna,Lofat,Lochol Breakfast Echo 2d Mode Cardiac US 02/01/24 Logged DOP 00:40 Morphine Sulfate PHA 02/01/24 Logged Injection 00:45 Enoxaparin Sodium PHA 02/01/24 Logged (Lovenox) 00:45 Nitroglycerin PHA 02/01/24 Logged Sublingual (Ntrostat 00:45 Morphine Sulfate PHA 02/01/24 Logged Injection 00:45 Oxygen By Nasal RT 02/01/24 Transmitted Cannula 00:40 Stat Ekg For Chest [facility] 02/01/24 In Process Pain 00:40 Notify Md Of Changes [facility] 02/01/24 In Process From Base 00:40 Machine Attendant For [facility] 02/01/24 In Process 24 Hours 00:40 Emergency Dysrhythmia [facility] 02/01/24 In Process Protocol 00:40 Rhythm Strips Once [facility] 02/01/24 In Process Every Shift 00:40 * Cardiology Consult CONS 02/01/24 Transmitted 00:40 Date of Service: Feb 01, 2024 Billing Provider: AYE AUGUSTINE MD Common Visit Codes: 15397-SEMVWVL INP/OBS CARE (HIGH) Secondary Visit Codes: 25700-[id number] CARE PLAN 30 MINUTES MARKO FRAIRE Feb 01, 2024 00:53 AYE AUGUSTINE MD Feb 01, 2024 09:03
[2024-02-01 01:22] LABS: INR 1.03 (0.9-1.15); Partial Thromboplastin Time 26.5 SEC (24.5-34.5); Prothrombin Time 10.9 sec (9.3-11.8)
[2024-02-01] MEDS: ENOXAPARIN SOD 40 MG/0.4 ML SYRINGE SC SCH (01:27)
[2024-02-01 03:22] LABS: Amphetamine Screen, Urine Neg (NEGATIVE); Barbiturate Scree,Urine Neg (NEGATIVE); Benzodiazephine Screen, Urine Neg (NEGATIVE); Cocaine Screen, Urine Neg (NEGATIVE)
[2024-02-01 03:23] LABS: Cannabinoid Screen, Urine Neg (NEGATIVE); Opiate Scree,Urine Neg (NEGATIVE); Phencyclidine Screen, Urine Neg (NEGATIVE)
[2024-02-01 04:44] LABS: Basophils # (auto) 0 10 ^3/uL (0-0.2); Basophils % (auto) 0.5 % (0.0-2.0); Eosinophils # (auto) 0.1 10 ^3/uL (0-0.8); Eosinophils % (auto) 2.1 % (0.0-7.0); Hematocrit 38.1 % (36.0-46.0); Hemoglobin 12.9 g/dL (12.2-16.2); Lymphocytes # (auto) 1.8 10 ^3/uL (0.4-5.4); Lymphocytes % (auto) 28.6 % (10.0-50.0); Mean Corpuscular Volume 91.1 fL (80.0-100.0); Monocytes # (auto) 0.7 10 ^3/uL (0-1.3); Monocytes % (auto) 11.1 % (0.0-12.0); Neutrophils # (auto) 3.7 10 ^3/uL (1.6-8.6); Neutrophils % (auto) 57.7 % (37.0-80.0); Platelet Count (auto) 201 10^3/uL (140-450); Red Blood Cells 4.18 10^6/uL (4.0-5.20); White Blood Cell 6.4 10^3/uL (4.4-10.8)
[2024-02-01 04:58] LABS: Alanine Aminotransferase 12 U/L (7-40); Albumin 4.7 g/dL (3.2-4.8); Alkaline Phosphatase 84 U/L (46-116); Anion Gap 10 (5-15); Aspartate Aminotransferase 13 U/L (13-40); BUN/Creatinine Ratio 16.9 (10.0-20.0); Bilirubin, Total 0.5 mg/dL (0.2-1.0); Blood Urea Nitrogen 15 mg/dL (9-23); Carbon Dioxide 25 mmol/L (20-31); Chloride 102 mmol/L (98-107); Glucose 115 mg/dL (74-106); Potassium 4.2 mmol/L (3.5-5.1); Sodium 137 mmol/L (136-145); Total Protein 7.1 g/dL (5.7-8.2)
[2024-02-01] MEDS: SODIUM CHLOR 0.9% PF (SALINE LOCK) 10ML VIAL/SYR IV SCH (06:05)
[2024-02-01] MEDS ORDERED: hydrALAZINE HCL 20 MG/ML VL IV PRN (07:45)
[2024-02-01] MEDS ORDERED: DEXTROSE (50%) 50ML SYRG IV PRN (07:45)
[2024-02-01] MEDS: InsuLIN REG 1unit/0.01ml Soln (100units/ml) SC SCH (08:00)
--- NOTE | 2024-02-01 08:32 | ECG ---
[facility] Test Date: 2024-02-01 Test Time: 02:05:12 Pat Name: RAJAN CARDOZO Department: er Room: 0281T Gender: F Surgeon'S Assistant: erich : 1940 Requested By: ADELFO CUNNINGHAM Order Number: [id number] Reading MD: Wilbur Zambrano Measurements Intervals [place] Rate: 56 P: 98 WI: 201 QRS: 89 QRSD: 141 T: 70 QT: 442 QTc: 427 Interpretive Statements Sinus rhythm Consider left atrial enlargement Right bundle branch block Electronically Signed On 02-01-2024 15:01:17 PDT by Wilbur Zambrano Please click the below link to view image of tracing.
--- NOTE | 2024-02-01 08:32 | ECG ---
[facility] Test Date: 2024-01-31 Test Time: 23:05:44 Pat Name: RAJAN CARDOZO Department: ER Room: 0281T Gender: F Directional Bore Operator: GOOD : 1940 Requested By: ADELFO CUNNINGHAM Order Number: [id number] Reading MD: Wilbur Zambrano Measurements Intervals [place] Rate: 64 P: 86 WI: 199 QRS: 91 QRSD: 136 T: 54 QT: 406 QTc: 419 Interpretive Statements Sinus rhythm Consider left atrial enlargement Right bundle branch block ST elevation, consider inferior injury Electronically Signed On 02-01-2024 15:01:07 PDT by Wilbur Zambrano Please click the below link to view image of tracing.
--- NOTE | 2024-02-01 08:32 | ECG ---
[facility] Test Date: 2024-02-01 Test Time: 00:05:42 Pat Name: RAJAN CARDOZO Department: ER Room: 0281T Gender: F Slab Lifting Supervisor: KAYLEE : 1940 Requested By: ADELFO CUNNINGHAM Order Number: [id number] Reading MD: Wilbur Zambrano Measurements Intervals [place] Rate: 55 P: 91 AK: 198 QRS: 88 QRSD: 137 T: 66 QT: 436 QTc: 417 Interpretive Statements Sinus rhythm Right bundle branch block Minimal ST elevation, inferior leads Electronically Signed On 02-01-2024 15:01:12 PDT by Wilbur Zambrano Please click the below link to view image of tracing.
[2024-02-01] MEDS ORDERED: LOSARTAN POTASSIUM 50 MG TAB PO SCH (10:00)
[2024-02-01] MEDS: PANTOPRAZOLE 40 MG TAB PO ONE (10:05)
[2024-02-01] MEDS: ASPirin 81 mg TAB PO SCH (10:05)
--- NOTE | 2024-02-01 11:04 | DVHINCON2 ---
Date Seen: Feb 01, 2024 Referring Physician MD Darron Reason for Consultation Chest pain History of Present Illness This is a Russian-speaking female who presented to the emergency room with a chief complaint of chest pain for one day. Describes her chest pain as substernal, nonradiating, constant, pressure-like, and associated with dizziness, visual disturbance, and occipital STEELE. States the chest pain is exacerbated by uncontrolled blood pressure. Per son over the phone, the patient's blood pressure was uncontrolled yesterday for which the patient took a total of lisinopril 60 mg last night. Upon arrival to the emergency room, she was found with a systolic blood pressure in the 220s mmHg. Reports compliance with her lisinopril BID, coreg BID, and amlodipine therapy. She underwent multiple 12 lead electrocardiogram revealing a sinus rhythm with an associated right bundle branch block. Serial troponin levels peaked at 42 ng/L. Denies following up with a primary raise driller in the outpatient setting. Significant medical history includes severe coronary artery disease status post double- vessel coronary artery bypass graft at [facility] on 07/2017 status post PTCA of the saphenous graft to the posterior descending/PTCA and stenting/atherectomy of the RCA on 10/29/2017, PDA/atheretomy of the saphenous venous graft to the RCA/PTCA and stenting of the LCx ad PTCA and atherectomy of the LCx marginal at [facility] on 11/21/2017, severe peripheral vascular disease status post [facility] and stenting of the left iliac and its proximal ostial segment in mid segment as well as external iliac distally and proximal common femoral on 11/22/2017 status post [facility] and stenting of the distal external iliac on 03/21/2018 status post [facility] and stenting of the distal iliac and proximal common femoral on 04/18/2018, congestive heart failure, carotid artery stenosis of moderate degree, hypertension, dyslipidemia, cerebrovascular accident in 2011, non-insulin- dependent diabetes mellitus, gastritis, and hiatal hernia. Past Medical History Past medical history reviewed. No other significant than mentioned above. Past Surgical History Double vessel CABG, 2018 PTCA, 2018 Multiple BLE PTAs, Cholecystectomy Appendectomy Thyroidectomy Lumbar spinal Carpal tunnel Kidney tumor resection Family History Family history reviewed. Social History Denies the use of illicit drugs, alcohol, or tobacco use. Allergies: Coded Allergies: NO KNOWN ALLERGIES (Unverified , 01/31/24) Home Meds Home medications reviewed. Current Medications Current Medications Medications (Trade) Dose Ordered Sig/Yoana Route PRN Reason Start Time Stop Time Status Last Admin Sodium Chloride (Saline Lock Ns) 10 ml Q8HR IV 02/01/24 06:00 02/01/24 06:05 Acetaminophen (Tylenol Tablet) 325 mg Q4HP PRN PO MILD PAIN (1-3 PAIN SCALE) 02/01/24 00:45 Ondansetron HCl (Zofran) 4 mg Q4HP PRN IV NAUSEA / VOMITING 02/01/24 00:45 Morphine Sulfate 2 mg Q4HPRN PRN IV SEVERE PAIN (7-10 PAIN SCALE) 02/01/24 00:45 Enoxaparin Sodium (Lovenox) 40 mg DAILY SC 02/01/24 00:45 02/01/24 10:06 Nitroglycerin (Ntrostat Sublingual) 0.4 mg Q5MINP PRN SL FOR CHEST PAIN 02/01/24 00:45 Morphine Sulfate 2 mg Q30M PRN IV FOR CHEST PAIN 02/01/24 00:45 Hydralazine HCl (Apresoline Injection) 10 mg Q6HP PRN IV SBP>150 02/01/24 07:45 Aspirin 81 mg DAILY PO 02/01/24 10:00 02/01/24 10:05 Atorvastatin Calcium (Lipitor) 40 mg HS PO 02/01/24 22:00 Diagnostic Test (Pha) (Accu-Chek Comfort Curve T) 1 strip Q6HR 02/01/24 12:00 Insulin Human Regular (InsuLIN R) IQ4HR SC 02/01/24 08:00 02/01/24 08:00 Dextrose 50 ml UD PRN IV Blood Sugar LESS THAN 60 02/01/24 07:45 Pantoprazole Sodium (Protonix Tablet) 40 mg DAILY@0600 PO 02/02/24 06:00 Losartan Potassium (Cozaar Tablet) 50 mg DAILY PO 02/01/24 10:00 02/01/24 10:24 DC Lisinopril (Zestril Tablet) 10 mg DAILY PO 02/02/24 10:00 UNV Clopidogrel Bisulfate (Plavix) 75 mg DAILY PO 02/02/24 10:00 UNV Carvedilol (Coreg Tablet) 3.125 mg Q12HR PO 02/01/24 22:00 UNV Review of Systems Constitutional: No symptom reported Ears, Nose, & Throat: No symptom reported Eyes: No symptom reported Neurological: Dizziness, visual disturbance, occipital STEELE Pulmonary/Respiratory: No symptom reported Cardiovascular: Chest pain Gastrointestinal: No symptom reported Genitourinary: No symptom reported Musculoskeletal: No symptom reported Skin: No symptom reported Psychiatric: No symptom reported Endocrine: No symptom reported Hemotologic/Lymphatic: No symptom reported Vital Signs Vital Signs Date Time Temp Pulse Resp B/P (MAP) Pulse Ox O2 Delivery O2 Flow Rate FiO2 02/01/24 10:00 66 16 141/60 (87) 94 02/01/24 08:00 98.5 98.5 01/31/24 23:37 Room Air* 0 21 Physical Exam General Appearance: Cooperative. Well developed. Well nourished. In no acute distress Head Exam: Normal inspection Neck Exam: Normal inspection. Non-tender. Normal alignment Pulmonary/Respiratory: Chest non-tender. Clear bilateral breath sounds Cardiovascular/Chest: Regular rate and rhythm. S1, S2. Sinus rhythm with RBBB. No murmurs. No JVD. Peripheral Pulses: 2+ Radial (R). 2+ Radial (L). 2+ Pedal (R). 2+ Pedal (L) Abdominal Exam: Normal bowel sounds. Soft. Nontender. No hepatospenomegaly. No masses Ankle Exam: Negative ankle edema Lower extremities: Negative lower extremity edema Neuro/Mental Status: A&O x3. Coherent Thoughts/Psych: Normal thought pattern. Appropriate mood and affect. Pleasant Appearance: In no acute distress Skin Exam: Normal inspection. Normal color. Warm. Dry Labs/Diagnostic Data Labs Test 02/01/24 10:00 02/01/24 08:18 02/01/24 04:24 02/01/24 00:13 Range/Units POC Glucose 173 H 70-106 mg/dl Vitamin B12 Level 1258 H 211-911 pg/mL Vitamin D 25-Hydroxy 37.9 30.0-100 ng/mL White Blood Count 6.4 4.4-10.8 10^3/uL Red Blood Count 4.18 4.0-5.20 10^6/uL Hemoglobin 12.9 12.2-16.2 g/dL Hematocrit 38.1 36.0-46.0 % Mean Corpuscular Volume 91.1 80.0-100.0 fL Mean Corpuscular Hemoglobin 31.0 28.0-32.0 pg Mean Corpuscular Hemoglobin Concent 34.0 32.0-36.0 g/dL Red Cell Distribution Width 14.0 11.8-14.3 % Platelet Count 201 140-450 10^3/uL Mean Platelet Volume 7.0 6.9-10.8 fL Neutrophils (%) (Auto) 57.7 37.0-80.0 % Lymphocytes (%) (Auto) 28.6 10.0-50.0 % Monocytes (%) (Auto) 11.1 0.0-12.0 % Eosinophils (%) (Auto) 2.1 0.0-7.0 % Basophils (%) (Auto) 0.5 0.0-2.0 % Neutrophils # (Auto) 3.7 1.6-8.6 10 ^3/uL Lymphocytes # (Auto) 1.8 0.4-5.4 10 ^3/uL Monocytes # (Auto) 0.7 0-1.3 10 ^3/uL Eosinophils # (Auto) 0.1 0-0.8 10 ^3/uL Basophils # (Auto) 0 0-0.2 10 ^3/uL Nucleated Red Blood Cells 0.0 % Sodium Level 137 136-145 mmol/L Potassium Level 4.2 3.5-5.1 mmol/L Chloride Level 102 98-107 mmol/L Carbon Dioxide Level 25 20-31 mmol/L Anion Gap 10 5-15 Blood Urea Nitrogen 15 9-23 mg/dL Creatinine 0.89 0.550-1.02 mg/dL Glomerular Filtration Rate Calc 65 >90 mL/min BUN/Creatinine Ratio 16.9 10.0-20.0 Serum Glucose 115 H 74-106 mg/dL Hemoglobin A1c 7.1 H <5.7 % A1C Calcium Level 10.0 8.7-10.4 mg/dL Total Bilirubin 0.5 0.2-1.0 mg/dL Aspartate Amino Transferase (AST) 13 13-40 U/L Alanine Aminotransferase (ALT) 12 7-40 U/L Alkaline Phosphatase 84 46-116 U/L Troponin I High Sensitivity 40 *H </=34 ng/L Total Protein 7.1 5.7-8.2 g/dL Albumin 4.7 3.2-4.8 g/dL Thyroid Stimulating Hormone (TSH) 0.62 0.55-4.78 uIU/mL Test 01/31/24 23:17 01/31/24 23:15 Range/Units Urine Color Colorless Yellow Urine Clarity Clear Clear Urine pH 7.0 5.0-9.0 Urine Specific [place] 1.004 1.001-1.035 Urine Protein Negative Negative Urine Ketones Negative Negative Urine Blood Negative Negative /uL Urine Nitrite Negative Negative Urine Bilirubin Negative Negative Urine Urobilinogen Normal Negative mg/dL Urine Leukocyte Esterase Negative Negative /uL Urine RBC 1 0 - 4 /hpf Urine WBC None seen 0 - 5 /hpf Urine Squamous Epithelial Cells None seen <5 /hpf Urine Bacteria None seen None Seen /hpf Urine Glucose Normal Normal mg/dL Urine Opiates Screen Neg NEGATIVE Urine Fentanyl Screen Neg NEGATIVE Urine Barbiturates Screen Neg NEGATIVE Urine Phencyclidine Screen Neg NEGATIVE Urine Amphetamines Screen Neg NEGATIVE Urine Benzodiazepines Screen Neg NEGATIVE Urine Cocaine Screen Neg NEGATIVE Urine Cannabinoids Screen Neg NEGATIVE Prothrombin Time 10.9 9.3-11.8 sec Prothrombin Time INR 1.03 0.9-1.15 Activated Partial Thromboplast Time 26.5 24.5-34.5 SEC B-Type Natriuretic Peptide 179.66 0-100 pg/mL Assessment Chest pain in the setting of hypertensive emergency NSTEMI Type 2 secondary to above Rule out progressive carotid stenosis Rule out renal artery stenosis Severe coronary artery disease s/p double-vessel CABG (2018) s/p multiple PTCAs (2018) Severe peripheral arterial disease status post multiple PTAs (2018, 2019) Dyslipidemia HX of CVA Plan/Recommendation We will continue the following plan/recommendations (Dr. Honeycutt): * Echocardiogram to evaluate cardiac function * Single-antiplatelet therapy and lipid lowering agent * Bilateral carotid duplex rule out progressive stenosis * Renal artery duplex rule out stenosis * Aggressive blood pressure control * Monitor ECG changes and notify * DVT/VTE prophylaxis The patient presents with substernal chest pain relieved when blood pressure is well controlled. Continue aggressive blood pressure management and rule out renal artery stenosis. Given dizziness and visual disturbance rule out progressive carotid stenosis. The patient has another medical record number showing multiple cardiac interventional procedures in the past [id number], please refer for further information. Thank you for allowing us to participate in this patient's care. Please call if you have any questions or concerns. This medical document was created using an electronic medical record system with voice recognition software and computerized dictation system. Although this document has been carefully reviewed, there might still be some phonetic and typographical errors. Occasional wrong-word or ``sound-alike substitutions may have occurred due to the inherent limitations of voice recognition software. These areas are purely typographical due to imperfections of the software programs and do not reflect any compromise in the patient's medical care. Please read the chart carefully and recognize, using context, where these substitutions have occurred. Plan discussed with: Patient, Other Date of Service: Feb 01, 2024 Billing Provider: ROBI HONEYCUTT MD Cardiology Common Codes: [id number] INP/OBS CARE (High) CLARITA FUENTES MEAT GRADING MACHINE OPERATOR Feb 01, 2024 11:04
[2024-02-01] MEDS: CLOPIDOGREL BISULFATE 75 MG TAB PO ONE (11:05)
[2024-02-01] MEDS: CARVEDILOL 3.125 MG TAB PO ONE (11:06)
[2024-02-01] MEDS: LISINOPRIL 5 MG TAB PO ONE (11:06)
[2024-02-01] MEDS: ACCU-CHEK COMFORT CURVE STRIP VI SCH ×2 (12:00→20:18)
--- NOTE | 2024-02-01 12:07 | DVH ---
Carotid duplex REASON FOR EXAM: Dizziness, visual disturbance CLINICAL HISTORY: Dizziness, visual disturbance A Carotid Duplex Study was performed. INDICATION: ALOC TECHNIQUE: De Jesus scale, color doppler imaging and spectral analysis were performed. FINDINGS: On de jesus scale and color imaging there is calcified plaque present in both carotid bulbs extending into the internal carotid arteries. Velocities are as follows: (measured in cm/S): Right CCA 68 Left CCA 64 Right ICA 190 Left ICA 178 Right ICA/CCA 2.8 Left ICA/CCA 2.8 Flow in the vertebral arteries is antegrade. IMPRESSION: 1. Calcified plaque in both carotid bulbs extending into the internal carotid arteries. 50-69% diamet er stenosis based on NASCET criteria
--- NOTE | 2024-02-01 12:17 | DVHPNRES ---
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 Sharp in nature and associated with headache, blurred vision, palpitations, dizziness, nausea but denies vomiting/fevers/chills. She tells that the chest pain has been ongoing for the past 4 days and she checked her blood pressure which was 200 mmHg systolic. She reports compliance with her antihypertensive medications which includes Coreg 3.125 mg b.i.d., lisinopril 20 mg b.i.d., amlodipine 5 mg daily. Patient is ambulatory and walks within the house performs activities of daily living herself. She also reports burning micturition. 2020 - left heart catheterization by Dr. Zambrano which showed RCA/lad/circumflex coronary artery disease. Medical management was advised. Patent left intramammary artery stent to LAD was seen 2018 - underwent stenting of distal iliac and proximal common femoral by Dr. Zambrano 2017 - underwent PTCA and stenting of the right iliac artery 2013 - endoscopy for upper GI bleeding which showed sliding hiatal hernia, grade 1 esophageal fasciitis, mild gastritis and duodenitis MRI reviewed from 2022 & 2018 shows old posterior parietal infarct Home medications: Levothyroxine 75 mg, atorvastatin 40, Coreg 3.125 b.i.d., we would pantoprazole 40 mg, gabapentin, glipizide, amlodipine 5mg, lisinopril 20 mg b.i.d. Patient seen and examined at bedside. No acute chest pain reported. Troponin 41, 40, 42. BNP 179. EKG reviewed, shows old right bundle-branch blockade, DC is prolonged at 200 M/S. Head CT completed, shows old infarct in left parietal lobe. Objective vital signs Vital Sign Date Time Temp Pulse Resp B/P (MAP) Pulse Ox O2 Delivery O2 Flow Rate FiO2 02/01/24 11:06 67 143/51 10/31/24 10:00 16 94 02/01/24 08:00 98.5 98.5 01/31/24 23:37 Room Air* 0 21 medications Current Medications Medications Dose Ordered Sig/Yoana Route Start Time Stop Time Status Last Admin Dose Admin Sodium Chloride 10 ml Q8HR IV 02/01/24 06:00 02/01/24 06:05 10 ML Acetaminophen 325 mg Q4HP PRN PO 02/01/24 00:45 Ondansetron HCl 4 mg Q4HP PRN IV 02/01/24 00:45 Morphine Sulfate 2 mg Q4HPRN PRN IV 02/01/24 00:45 Enoxaparin Sodium 40 mg DAILY SC 02/01/24 00:45 02/01/24 10:06 40 MG Nitroglycerin 0.4 mg Q5MINP PRN SL 02/01/24 00:45 Morphine Sulfate 2 mg Q30M PRN IV 02/01/24 00:45 Hydralazine HCl 10 mg Q6HP PRN IV 02/01/24 07:45 Atorvastatin Calcium 40 mg HS PO 02/01/24 22:00 Diagnostic Test (Pha) 1 strip Q6HR 02/01/24 12:00 Insulin Human Regular IQ4HR SC 02/01/24 08:00 02/01/24 08:00 3 UNITS Dextrose 50 ml UD PRN IV 02/01/24 07:45 Pantoprazole Sodium 40 mg DAILY@0600 PO 02/02/24 06:00 Clopidogrel Bisulfate 75 mg DAILY PO 02/02/24 10:00 Carvedilol 3.125 mg Q12HR PO 02/01/24 22:00 Lisinopril 10 mg BID PO 02/01/24 22:00 Amlodipine Besylate 5 mg DAILY PO 02/02/24 10:00 Gabapentin 100 mg BID PO 02/01/24 22:00 Examination Patient lying in bed, in no acute distress General: Well-built, afebrile, palor, mucosae are moist Cardiovascular: Regular S1 and S2. No murmurs, gallops or rubs. No JVD elevation. No pedal edema. Tenderness at the back of the neck. Respiratory: Normal B/L air entry on room air. Clear lung sounds on auscultation Abdomen: Soft, nontender, nondistended, normoactive bowel sounds, no rebound tenderness, no organomegaly, no masses Genitourinary: Deferred MSK/skin: Mobilizes 4 limbs. Skin is dry and warm Neurological: No motor, no sensitive deficits, normal speech. Pupils are isocoric and reactive. Psych/Mental Status: A/Ox4 laboratory and microbiology Laboratory Tests 02/01/24 04:24 Test 02/01/24 04:24 Range/Units Serum Glucose 115 H 74-106 mg/dL Labs and/or images reviewed: Labs reviewed by me, Image(s) reviewed by me Problem List/Assessment/Plan Problem List/Assessment/Plan Acute chest pain, rule out ACS CAD status post double-vessel CABG 2018 at [place] double bypass, PTCA with 3 CORNELIA NSTEMI type 2 Troponin 41, 40, 42 BNP 172 EKG reviewed, shows old right bundle branch blockade otherwise unremarkable for ST changes. Echocardiogram 07/2022 shows LVEF 60% Echocardiogram pending Cardiology consulted-single antiplatelet therapy and lipid-lowering agent Continue Plavix 75 mg daily and atorvastatin 40 mg daily, patient denies taking aspirin Hypertensive emergency Head CT completed, shows no acute intracranial process Renal artery ultrasound pending Continue home medication carvedilol 3.125 b.i.d., amlodipine 5 mg daily, lisinopril 10 mg b.i.d. Hydralazine 10 mg q.6 p.r.n. for SBP greater than 150 mmHg and pulse less than 90 beats per minute Labetalol 5 mg IV once given by the ER physician Peripheral arterial disease status post PTCA left iliac and paroxysmal common femoral 2017 Continue home medication Plavix and atorvastatin Carotid artery stenosis Ruled out progressive carotid artery stenosis Bilateral carotid duplex shows calcified plaque in both carotid bulbs extending into the ICA. 50-69% diameter stenosis based on NASCET criteria-consistent with the previous imaging findings History of CVA 2011 Continue Plavix and atorvastatin daily Head CT completed, shows old infarct in the left parietal lobe Diabetes mellitus type 2-hemoglobin A1c 7.1 Initiated mild ISS Dyslipidemia Atorvastatin daily History of esophagitis/duodenitis/ sliding hiatal hernia Pantoprazole 40 mg p.o. daily History of right benign tumor status post removal 10 years ago Monitor DVT prophylaxis Lovenox 40 mg sc daily Diet Cardiac and carbohydrate Physical therapy consulted Patient has another , which was accessed for details. Plan discussed with patient in which all questions have been answered Goals of care discussed with the patient for more than 20 minutes, full code status Plan discussed with Dr. Augustine. Echocardiogram pending. critical care time 39 mins Plan discussed with: Patient My Orders My Orders Orders - GORDY ARAMBULA Procedure Category Date Status Time Hydralazine Injection PHA 02/01/24 In Process (Apresoline Inject 07:45 Atorvastatin (Lipitor) PHA 02/01/24 In Process 22:00 Covid19 Antigen [facility] 02/01/24 Logged Glucose Blood PHA 02/01/24 In Process (Accu-Chek Comfort 12:00 Insulin R (Human) PHA 02/01/24 In Process (Insulin R) 08:00 Dextrose 50% Syringe PHA 02/01/24 In Process 07:45 Pantoprazole Tablet PHA 02/02/24 In Process (Protonix Tablet) 06:00 Clopidogrel Bisulfate PHA 02/02/24 In Process (Plavix) 10:00 Carvedilol Tablet PHA 02/01/24 In Process (Coreg Tablet) 22:00 Lisinopril Tablet PHA 02/01/24 In Process (Zestril Tablet) 22:00 Amlodipine Tablet PHA 02/02/24 In Process (Norvasc Tablet) 10:00 Gabapentin Capsule PHA 02/01/24 In Process (Neurontin Capsule) 22:00 Pt Request For Service PT 02/01/24 Logged 11:06 Npo (Nothing By DIET 02/01/24 Transmitted Mouth) Diet Lunch Date of Service: Feb 01, 2024 Billing Provider: AYE AUGUSTINE MD Common Visit Codes: [id number] CARE 30-74 MIN GORDY ARAMBULA Feb 01, 2024 12:17 AYE AUGUSTINE MD Feb 01, 2024 19:09
[2024-02-01] MEDS: GABAPENTIN 100 MG CAP PO ONE (12:40)
[2024-02-01] MEDS: amLODIPine BESYLATE 5 MG TAB PO ONE (12:43)
--- NOTE | 2024-02-01 19:14 | DVH ---
INDICATION: Hypertension. TECHNIQUE: Multiple real-time sonographic images of the kidneys and bladder were obtained. Duplex Doppler evaluation including color Doppler and spectral/pulsed waveform analysis of the bilate ral renal arteries was performed. COMPARISON: None FINDINGS: The right kidney measures 8.2 cm in length. The right renal echogenicity, contour and cortical thickn ess are within normal limits. No hydronephrosis or large masses/calculi are seen. The left kidney measures 8.4 cm in length. The left renal echogenicity, contour, and cortical thickne ss are within normal limits. No hydronephrosis or large masses/calculi are seen. Right renal artery peak systolic velocity, 102.3 cm/s (< 180 cm/s = normal). Left renal artery peak systolic velocity 71.4 cm/s (< 180 cm/s = normal). Right RAR : 4.3 (< 3.5, normal) Left RAR 3.0 (< 3.5, normal) Right RI: 0.86 (< 0.75, normal) Left RI: 0.82 (< 0.75, normal) IMPRESSION: 1. Right renal artery stenosis 2. No evidence of left renal artery stenosis. *Patricio Logan Techniques in Noninvasive Vascular Diagnosis 2002
[2024-02-01] MEDS: ERGOCALCIFEROL 50,000 UNIT(1.25MG) CAP PO SCH (20:15)
[2024-02-01] MEDS: GABAPENTIN 100 MG CAP PO SCH (21:57)
[2024-02-01] MEDS: ATORVASTATIN 20 MG TAB PO SCH (21:58)
[2024-02-01] MEDS: LISINOPRIL 5 MG TAB PO SCH (22:00)
[2024-02-01] MEDS: CARVEDILOL 3.125 MG TAB PO SCH (22:00)
[2024-02-02] VITALS (8 sets, daily range): BP systolic 110–138; BP diastolic 48–71; PULSE 53–70; RESP 17–21; TEMP 97.4–98.3; O2SAT 94–98
[2024-02-02] MEDS: PANTOPRAZOLE 40 MG TAB PO SCH (05:12)
[2024-02-02] MEDS ORDERED: amLODIPine BESYLATE 5 MG TAB PO SCH (10:00)
[2024-02-02] MEDS ORDERED: LISINOPRIL 5 MG TAB PO SCH (10:00)
--- NOTE | 2024-02-02 10:50 | DVHPN2 ---
Consult Progress Note Date Seen: Feb 02, 2024 Subjective Review of Systems: CVS:Normal, RESPIRATORY:Normal, NEURO:Normal Objective vital signs Vital Sign Date Time Temp Pulse Resp B/P (MAP) Pulse Ox O2 Delivery O2 Flow Rate FiO2 02/02/24 08:42 98.0 58 21 130/53 (78) 95 98.0 02/01/24 20:00 Room Air* 0 21 Total Intake and Output 02/01/24 02/01/24 02/02/24 15:00 23:00 07:00 Intake Total 0 ml 120 ml Balance 0 ml 120 ml medications Current Medications Medications Dose Ordered Sig/Yoana Route Start Time Stop Time Status Last Admin Dose Admin Sodium Chloride 10 ml Q8HR IV 02/01/24 06:00 02/02/24 05:16 10 ML Acetaminophen 325 mg Q4HP PRN PO 02/01/24 00:45 Ondansetron HCl 4 mg Q4HP PRN IV 02/01/24 00:45 Morphine Sulfate 2 mg Q4HPRN PRN IV 02/01/24 00:45 Enoxaparin Sodium 40 mg DAILY SC 02/01/24 00:45 02/01/24 10:06 40 MG Nitroglycerin 0.4 mg Q5MINP PRN SL 02/01/24 00:45 Morphine Sulfate 2 mg Q30M PRN IV 02/01/24 00:45 Hydralazine HCl 10 mg Q6HP PRN IV 02/01/24 07:45 Atorvastatin Calcium 40 mg HS PO 02/01/24 22:00 02/01/24 21:58 40 MG Insulin Human Regular IQ4HR SC 02/01/24 08:00 02/02/24 08:29 3 UNITS Dextrose 50 ml UD PRN IV 02/01/24 07:45 Pantoprazole Sodium 40 mg DAILY@0600 PO 02/02/24 06:00 02/02/24 05:12 40 MG Clopidogrel Bisulfate 75 mg DAILY PO 02/02/24 10:00 Gabapentin 100 mg BID PO 02/01/24 22:00 02/01/24 21:57 100 MG Diagnostic Test (Pha) 1 strip IQ4HR 02/01/24 20:00 02/02/24 08:21 1 STRIP Ergocalciferol 50,000 unit Q7D PO 02/01/24 18:00 02/01/24 20:15 50,000 UNIT Nifedipine 60 mg DAILY PO 02/02/24 10:00 Lisinopril 5 mg DAILY PO 02/02/24 10:00 Aspirin 81 mg DAILY PO 02/02/24 10:00 Examination: LUNGS:Normal, CVS:Normal, NEURO:Normal laboratory and microbiology Laboratory Tests 02/01/24 04:24 Test 02/01/24 04:24 Range/Units Serum Glucose 115 H 74-106 mg/dL Problem List/Assessment/Plan Problem List/Assessment/Plan Chest pain in the setting of hypertensive emergency NSTEMI Type 2 secondary to above Carotid artery stenosis, moderate degree Right renal artery stenosis Severe coronary artery disease s/p double-vessel CABG (2018) s/p multiple PTCAs (2018) Severe peripheral arterial disease status post multiple PTAs (2017, 2019) Dyslipidemia HX of CVA Plan/Recommendation (Dr. Honeycutt) * Echocardiogram to evaluate cardiac function * Dual-antiplatelet therapy given severe CAD/PVD and lipid lowering agent * Aggressive blood pressure control, nifedipine uptitrate as necessary * Avoid BB secondary to bradycardia (HR 40s-50s) * Avoid ACEIs given renal artery stenosis * Monitor ECG changes and notify * DVT/VTE prophylaxis In the setting of an unremarkable echocardiogram, there is no further cardiac work-up indicated at this time. Recommend to follow-up with Cardiology as outpatient given extensive cardiac history. Please call if you have any questions. Thank you for allowing us to participate in this patient's care. Of note: The patient has another medical record number showing multiple cardiac interventional procedures in the past [id number], please refer for further information. This medical document was created using an electronic medical record system with voice recognition software and computerized dictation system. Although this document has been carefully reviewed, there might still be some phonetic and typographical errors. Occasional wrong-word or ``sound-alike substitutions may have occurred due to the inherent limitations of voice recognition software. These areas are purely typographical due to imperfections of the software programs and do not reflect any compromise in the patient's medical care. Please read the chart carefully and recognize, using context, where these substitutions have occurred. Plan discussed with: Patient, Other Date of Service: Feb 02, 2024 Billing Provider: ROBI HONEYCUTT MD Cardiology Common Codes: [id number] INP/OBS CARE(Mod) CLARITA FUENTES [facility] Feb 02, 2024 10:50
[2024-02-02] MEDS: NIFEdipine ER 30 MG TAB PO SCH (11:10)
[2024-02-02] MEDS: CLOPIDOGREL BISULFATE 75 MG TAB PO SCH (11:11)
[2024-02-02] MEDS: LISINOPRIL 5 MG TAB PO SCH (11:11)
[2024-02-02] MEDS: ASPirin 81 mg TAB PO SCH (11:12)
--- NOTE | 2024-02-02 14:30 | DVHPNRES ---
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 Sharp in nature and associated with headache, blurred vision, palpitations, dizziness, nausea but denies vomiting/fevers/chills. She tells that the chest pain has been ongoing for the past 4 days and she checked her blood pressure which was 200 mmHg systolic. She reports compliance with her antihypertensive medications which includes Coreg 3.125 mg b.i.d., lisinopril 20 mg b.i.d., amlodipine 5 mg daily. Patient is ambulatory and walks within the house performs activities of daily living herself. She also reports burning micturition. 2020 - left heart catheterization by Dr. Zambrano which showed RCA/lad/circumflex coronary artery disease. Medical management was advised. Patent left intramammary artery stent to LAD was seen 2018 - underwent stenting of distal iliac and proximal common femoral by Dr. Zambrano 2017 - underwent PTCA and stenting of the right iliac artery 2013 - endoscopy for upper GI bleeding which showed sliding hiatal hernia, grade 1 esophageal fasciitis, mild gastritis and duodenitis MRI reviewed from 2022 & 2018 shows old posterior parietal infarct Home medications: Levothyroxine 75 mg, atorvastatin 40, Coreg 3.125 b.i.d., we would pantoprazole 40 mg, gabapentin, glipizide, amlodipine 5mg, lisinopril 20 mg b.i.d. Patient seen and examined at bedside. No acute distress. Troponin 41, 40, 42. BNP 179. EKG reviewed, shows old right bundle-branch blockade, PA is prolonged at 200 M/S. Head CT completed, shows old infarct in left parietal lobe. Echo showed LVEF 55%. Grade 1 diastolic dysfunction. Slightly increased RVSP at 31 mm Hg. Aortic valve is mildly thickened. Mild AR. Objective vital signs Vital Sign Date Time Temp Pulse Resp B/P (MAP) Pulse Ox O2 Delivery O2 Flow Rate FiO2 02/02/24 11:11 130/53 02/02/24 08:42 98.0 58 21 95 98.0 02/01/24 20:00 Room Air* 0 21 Total Intake and Output 02/01/24 02/01/24 02/02/24 15:00 23:00 07:00 Intake Total 0 ml 120 ml Balance 0 ml 120 ml medications Current Medications Medications Dose Ordered Sig/Yoana Route Start Time Stop Time Status Last Admin Dose Admin Sodium Chloride 10 ml Q8HR IV 02/01/24 06:00 02/02/24 05:16 10 ML Acetaminophen 325 mg Q4HP PRN PO 02/01/24 00:45 Ondansetron HCl 4 mg Q4HP PRN IV 02/01/24 00:45 Morphine Sulfate 2 mg Q4HPRN PRN IV 02/01/24 00:45 Enoxaparin Sodium 40 mg DAILY SC 02/01/24 00:45 02/02/24 11:12 40 MG Nitroglycerin 0.4 mg Q5MINP PRN SL 02/01/24 00:45 Morphine Sulfate 2 mg Q30M PRN IV 02/01/24 00:45 Hydralazine HCl 10 mg Q6HP PRN IV 02/01/24 07:45 Atorvastatin Calcium 40 mg HS PO 02/01/24 22:00 02/01/24 21:58 40 MG Insulin Human Regular IQ4HR SC 02/01/24 08:00 02/02/24 08:29 3 UNITS Dextrose 50 ml UD PRN IV 02/01/24 07:45 Pantoprazole Sodium 40 mg DAILY@0600 PO 02/02/24 06:00 02/02/24 05:12 40 MG Clopidogrel Bisulfate 75 mg DAILY PO 02/02/24 10:00 02/02/24 11:11 75 MG Gabapentin 100 mg BID PO 02/01/24 22:00 02/02/24 11:10 100 MG Diagnostic Test (Pha) 1 strip IQ4HR 02/01/24 20:00 02/02/24 12:27 1 STRIP Ergocalciferol 50,000 unit Q7D PO 02/01/24 18:00 02/01/24 20:15 50,000 UNIT Nifedipine 60 mg DAILY PO 02/02/24 10:00 02/02/24 11:10 60 MG Aspirin 81 mg DAILY PO 02/02/24 10:00 02/02/24 11:12 81 MG Examination Patient lying in bed, in no acute distress General: Well-built, afebrile, palor, mucosae are moist Cardiovascular: Regular S1 and S2. No murmurs, gallops or rubs. No JVD elevation. No pedal edema. Tenderness at the back of the neck. Respiratory: Normal B/L air entry on room air. Clear lung sounds on auscultation Abdomen: Soft, nontender, nondistended, normoactive bowel sounds, no rebound tenderness, no organomegaly, no masses Genitourinary: Deferred MSK/skin: Mobilizes 4 limbs. Skin is dry and warm Neurological: No motor, no sensitive deficits, normal speech. Pupils are isocoric and reactive. Psych/Mental Status: A/Ox4 laboratory and microbiology Laboratory Tests 02/01/24 04:24 Test 02/01/24 04:24 Range/Units Serum Glucose 115 H 74-106 mg/dL Labs and/or images reviewed: Labs reviewed by me, Image(s) reviewed by me Problem List/Assessment/Plan Problem List/Assessment/Plan Acute chest pain, rule out ACS CAD status post double-vessel CABG 2018 at [facility] double bypass, PTCA with 3 CORNELIA NSTEMI type 2 Troponin 41, 40, 42 BNP 172 EKG reviewed, shows old right bundle-branch blockade, PA is prolonged at 200 M/S. Head CT completed, shows old infarct in left parietal lobe. Echo showed LVEF 55%. Grade 1 diastolic dysfunction. Slightly increased RVSP at 31 mm Hg. Aortic valve is mildly thickened. Mild AR. Cardiology consulted-dual antiplatelet therapy and lipid-lowering agent. Recommended outpatient follow up. Continue aspirin 81 mg, Plavix 75 mg daily and atorvastatin 40 mg daily, patient denies taking aspirin Hypertensive emergency Head CT completed, shows no acute intracranial process Renal artery ultrasound pending Continue home medication amlodipine 5 mg daily, started nifedipine ER 60 mg p.o. daily Hydralazine 10 mg q.6 p.r.n. for SBP greater than 150 mmHg and pulse less than 90 beats per minute Labetalol 5 mg IV once given by the ER physician Right-sided Renal artery stenosis Renal ultrasound showed right renal artery stenosis, peak systolic velocity 102, RAR 4.3. No evidence of left renal artery stenosis Avoid DAYANA inhibitors given renal artery stenosis Sinus bradycardia ? Probable sick sinus syndrome Telemetry reviewed, pulses consistently into late 50s. No events recorded. Rhythm is regular. DC home medication Coreg 3.125 b.i.d. Telemetry discontinued. Avoid beta blockers. EKG reviewed, shows PA prolongation otherwise unremarkable. Peripheral arterial disease status post PTCA left iliac and paroxysmal common femoral 2017 Continue home medication Plavix and atorvastatin Carotid artery stenosis Ruled out progressive carotid artery stenosis Bilateral carotid duplex shows calcified plaque in both carotid bulbs extending into the ICA. 50-69% diameter stenosis based on NASCET criteria-consistent with the previous imaging findings History of CVA 2011 Continue Plavix and atorvastatin daily Head CT completed, shows old infarct in the left parietal lobe Diabetes mellitus type 2-hemoglobin A1c 7.1 Initiated mild ISS Dyslipidemia Atorvastatin daily History of esophagitis/duodenitis/ sliding hiatal hernia Pantoprazole 40 mg p.o. daily History of right benign tumor status post removal 10 years ago Monitor DVT prophylaxis Lovenox 40 mg sc daily Diet Cardiac and carbohydrate Physical therapy consulted Patient has another , which was accessed for details. Plan discussed with patient in which all questions have been answered Goals of care discussed with the patient for more than 20 minutes, full code status Plan discussed with Dr. Augustine. DC home medication Coreg and lisinopril given sinus bradycardia and renal artery stenosis. Started nifedipine ER 60 mg. We will monitor blood pressure overnight. Plan discussed with: Patient My Orders My Orders Orders - GORDY ARAMBULA Procedure Category Date Status Time Glucose Blood PHA 02/01/24 In Process (Accu-Chek Comfort 20:00 Communication Order ORDERS 02/01/24 Transmitted 17:56 Cardiac DIET 02/01/24 Transmitted Diet-2gna,Lofat,Lochol Dinner Ergocalciferol PHA 02/01/24 In Process (Vitamin D 50,000 18:00 Discontinue Tele ILIANA 02/02/24 In Process 06:45 Transfer Orders XFER 02/02/24 Transmitted 06:45 Date of Service: Feb 02, 2024 Billing Provider: AYE AUGUSTINE MD Common Visit Codes: [id number] INP/OBS CARE(HIGH) GORDY ARAMBULA Feb 02, 2024 14:30 AYE AUGUSTINE MD Feb 03, 2024 12:42
--- NOTE | 2024-02-02 14:46 | DVHSR ---
APPROVED REPORT EXAM: Two-dimensional and M-mode echocardiogram with Doppler and color Doppler. Blood Pressure: 132/54 mmHg INDICATION Chest Pain RISK FACTORS Height: 60, Weight: 127 DIMENSIONS LVDd (3.8-5.7cm)LA (2D)3.3 (1.9-4.0cm)Aortic Root3.0 (2.0-3.7cm) EF (%) 54.0 (55-70%)Rt. Atrium4.0 (1.9-4.0cm)Asc. Aorta cm Mitral Valve MitralMitral Stenosis E wave0.66m/sMV Mean GR.mmHg A wave1.23m/sMV Peak GR.mmHg E/A ratio0.52D MVAcm2 DECEL [id number] 1/2 [id number] IVRTmsDop MVA1.64cm2 Aortic Valve Aortic ValveAortic Stenosis V10.85m/Ector Mean GR.4mmHg V21.46m/Ector Peak GR.9mmHg LVOT Diameter1.6 (1.8-2.4cm)Doppler AVA1.17cm2 AI P 1/2 Dfgr975.57ms Tricuspid Valve TR Velocity2.63m/s [id number] Other Information Technically limited study due to body habitus. Conclusion Normal left ventricular size and dimension. Normal left ventricular systolic function estimated ejec tion fraction 55%. There is a grade 1 diastolic dysfunction. Normal right ventricular size and dimension. Normal right ventricular systolic function. Slightly i ncreased right ventricular systolic pressure 31 mm of mercury Normal biatrial size and dimension. The aortic valve is mildly thickened and sclerotic. There is mild aortic valve regurgitation. Normal mitral valve structure and function. Normal tricuspid valve structure and function. The pulmonary valve is grossly normal. No pericardial effusion. New
[2024-02-03 01:00] VITALS: BP 110/52; PULSE 68; RESP 20; TEMP 97.8; O2SAT 96
[2024-02-03 05:00] VITALS: BP 111/50; PULSE 59; RESP 20; TEMP 97.8; O2SAT 93
[2024-02-03 09:00] VITALS: BP 122/66; PULSE 64; RESP 16; TEMP 98.7; O2SAT 92
[2024-02-03 13:00] VITALS: BP 134/59; PULSE 62; RESP 16; TEMP 97.6; O2SAT 94
[2024-02-03 15:14] VITALS: BP 122/62; PULSE 57; TEMP 36.4
[2024-02-03] MEDS ORDERED: PANT40T PO (15:43)
[2024-02-03] MEDS ORDERED: ASPI-325 PO (15:43)
[2024-02-03] MEDS ORDERED: CLOP75TA70 PO (15:43)
[2024-02-03] MEDS ORDERED: NIFE1TAB31 PO (15:43)
[2024-02-03] MEDS ORDERED: ERGO1CAP23 PO (15:43)
[2024-02-03] MEDS ORDERED: ATOR20TA50 PO (15:43)
--- NOTE | 2024-02-03 15:54 | DVHDSRES ---
Discharge Summary Date of Admission Resident Creating Document: DENISA WOLFF Feb 01, 2024 at 00:40 Date of Discharge: Feb 03, 2024 Labs/Diagnostic Data: Laboratory Results Test 02/03/24 08:18 02/01/24 08:18 02/01/24 04:24 02/01/24 00:13 POC Glucose 126 mg/dl (70-106) Vitamin B12 Level 1258 pg/mL (211-911) Vitamin D 25-Hydroxy 37.9 ng/mL (30.0-100) White Blood Count 6.4 10^3/uL (4.4-10.8) Red Blood Count 4.18 10^6/uL (4.0-5.20) Hemoglobin 12.9 g/dL (12.2-16.2) Hematocrit 38.1 % (36.0-46.0) Mean Corpuscular Volume 91.1 fL (80.0-100.0) Mean Corpuscular Hemoglobin 31.0 pg (28.0-32.0) Mean Corpuscular Hemoglobin Concent 34.0 g/dL (32.0-36.0) Red Cell Distribution Width 14.0 % (11.8-14.3) Platelet Count 201 10^3/uL (140-450) Mean Platelet Volume 7.0 fL (6.9-10.8) Neutrophils (%) (Auto) 57.7 % (37.0-80.0) Lymphocytes (%) (Auto) 28.6 % (10.0-50.0) Monocytes (%) (Auto) 11.1 % (0.0-12.0) Eosinophils (%) (Auto) 2.1 % (0.0-7.0) Basophils (%) (Auto) 0.5 % (0.0-2.0) Neutrophils # (Auto) 3.7 10 ^3/uL (1.6-8.6) Lymphocytes # (Auto) 1.8 10 ^3/uL (0.4-5.4) Monocytes # (Auto) 0.7 10 ^3/uL (0-1.3) Eosinophils # (Auto) 0.1 10 ^3/uL (0-0.8) Basophils # (Auto) 0 10 ^3/uL (0-0.2) Nucleated Red Blood Cells 0.0 % Sodium Level 137 mmol/L (136-145) Potassium Level 4.2 mmol/L (3.5-5.1) Chloride Level 102 mmol/L (98-107) Carbon Dioxide Level 25 mmol/L (20-31) Anion Gap 10 (5-15) Blood Urea Nitrogen 15 mg/dL (9-23) Creatinine 0.89 mg/dL (0.550-1.02) Glomerular Filtration Rate Calc 65 mL/min (>90) BUN/Creatinine Ratio 16.9 (10.0-20.0) Serum Glucose 115 mg/dL (74-106) Hemoglobin A1c 7.1 % A1C (<5.7) Calcium Level 10.0 mg/dL (8.7-10.4) Total Bilirubin 0.5 mg/dL (0.2-1.0) Aspartate Amino Transferase (AST) 13 U/L (13-40) Alanine Aminotransferase (ALT) 12 U/L (7-40) Alkaline Phosphatase 84 U/L (46-116) Troponin I High Sensitivity 40 ng/L (</=34) Total Protein 7.1 g/dL (5.7-8.2) Albumin 4.7 g/dL (3.2-4.8) Thyroid Stimulating Hormone (TSH) 0.62 uIU/mL (0.55-4.78) Test 01/31/24 23:17 01/31/24 23:15 Urine Color Colorless (Yellow) Urine Clarity Clear (Clear) Urine pH 7.0 (5.0-9.0) Urine Specific [place] 1.004 (1.001-1.035) Urine Protein Negative (Negative) Urine Ketones Negative (Negative) Urine Blood Negative /uL (Negative) Urine Nitrite Negative (Negative) Urine Bilirubin Negative (Negative) Urine Urobilinogen Normal mg/dL (Negative) Urine Leukocyte Esterase Negative /uL (Negative) Urine RBC 1 /hpf (0 - 4) Urine WBC None seen /hpf (0 - 5) Urine Squamous Epithelial Cells None seen /hpf (<5) Urine Bacteria None seen /hpf (None Seen) Urine Glucose Normal mg/dL (Normal) Urine Opiates Screen Neg (NEGATIVE) Urine Fentanyl Screen Neg (NEGATIVE) Urine Barbiturates Screen Neg (NEGATIVE) Urine Phencyclidine Screen Neg (NEGATIVE) Urine Amphetamines Screen Neg (NEGATIVE) Urine Benzodiazepines Screen Neg (NEGATIVE) Urine Cocaine Screen Neg (NEGATIVE) Urine Cannabinoids Screen Neg (NEGATIVE) Prothrombin Time 10.9 sec (9.3-11.8) Prothrombin Time INR 1.03 (0.9-1.15) Activated Partial Thromboplast Time 26.5 SEC (24.5-34.5) B-Type Natriuretic Peptide 179.66 pg/mL (0-100) Other Laboratory Tests 02/01/24 04:24 Brief Hx & Hospital Course: 83-year-old female with past medical history of diastolic congestive heart failure, CVA, peripheral arterial disease, coronary artery disease status post CABG 2018 at [facility], PTCA with three drug-eluting stents, type 2 diabetes mellitus, history of had kidney tumor removal 10 years ago, hyperlipidemia and GERD presented with chief complaint of chest pain. She described chest pain as left-sided that was radiating to back and the back of neck, sharp in nature and was associated with a headache, blurry vision, palpitations, dizziness and nausea. Patient blood pressure was in hypertensive emergency range, which was resolved gradually over the hospital course and later became normotensive patient was continued on home medication for hypertension, peripheral arterial disease, hyperlipidemia, esophagitis. EKG reviewed showed acute abnormalities. Troponins hospital were not significantly elevated. Head CT completed, shows old infarct in left parietal lobe. Cardiology was consulted. Patient had renal ultrasound which revealed right renal artery stenosis, peak systolic velocity 102, RAR 4.3. No evidence of left renal artery stenosis. Patient mentioned significant improvement in her symptoms. Cardiology recommended dual antiplatelet therapy. At the time of discharge, patient had stable vitals, no new complaints. Discharge plan was discussed with the patient and patient was advised to follow up with PCP within one week and Cardiology within 1-2 weeks. Patient was prescribed on aspirin, Plavix, atorvastatin, nifedipine and pantoprazole and was advised to discontinue amlodipine and avoid lisinopril address other home medications were continued . Examination General Appearance: Alert, Oriented X3, Cooperative, No acute distress HEENT: EOMI Respiratory: Clear to auscultation, Normal air movement Cardiovascular: Regular rate, Normal S1, Normal S2 Abdominal: Normal bowel sounds Extremities: No cyanosis, No edema, Normal pulses, No tenderness/swelling Skin: No rashes, No breakdown Neuro: Normal speech and tone Operations or Procedures ORDERING PHYSICIAN: CLARITA FUENTES PROCEDURE(s): RENARTLMTD - RENAL ARTERY LMTD REASON: HTN crisis rule out stenosis ORDER NUMBER(s): [id number], ACCESSION NUMBER(s): [id number] INDICATION: Hypertension. TECHNIQUE: Multiple real-time sonographic images of the kidneys and bladder were obtained. Duplex Doppler evaluation including color Doppler and spectral/pulsed waveform analysis of the bilateral renal arteries was performed. COMPARISON: None FINDINGS: The right kidney measures 8.2 cm in length. The right renal echogenicity, contour and cortical thickness are within normal limits. No hydronephrosis or large masses/calculi are seen. The left kidney measures 8.4 cm in length. The left renal echogenicity, contour, and cortical thickness are within normal limits. No hydronephrosis or large masses/calculi are seen. Right renal artery peak systolic velocity, 102.3 cm/s (< 180 cm/s = normal). Left renal artery peak systolic velocity 71.4 cm/s (< 180 cm/s = normal). Right RAR : 4.3 (< 3.5, normal) Left RAR 3.0 (< 3.5, normal) Right RI: 0.86 (< 0.75, normal) Left RI: 0.82 (< 0.75, normal) IMPRESSION: 1. Right renal artery stenosis 2. No evidence of left renal artery stenosis. *Patricio Logan Techniques in Noninvasive Vascular Diagnosis 2001 Condition at Discharge: Stable Final Diagnosis/Problems List Acute chest pain, ruled out ACS Hypertensive emergency NSTEMI type 2 chest pain due to hypertensive emergency CAD status post double-vessel CABG 2018 at [facility] double bypass, PTCA with 3 CORNELIA Right-sided Renal artery stenosis Sinus bradycardia ? 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 Patient was counseled about treatment plan, medications, possible side effects, patientverbalized understanding. All questions were answered to the best of my ability. This discharge took greater then 30 minutes in planning, reviewing documentation, counseling the patient, and discussing with other team members." ASSESSMENT ASSESSMENT Assessment chest pain due to hypertensive emergency hypertensive emergency right sided renal artery stenosis carotid artery stenosis Date of Service: Feb 03, 2024 Billing Provider: TIKI COLLADO DO Common Visit Codes: [id number] DISCH DAY >30min DENISA WOLFF RESIDENT Feb 03, 2024 15:54 TIKI COLLADO DO Feb 08, 2024 06:52
== END 2024-02-03 16:15 | disposition home or self-care (01) | DRG 281 ==
LOC: ER 22:57 → EDUNIT# 02-01 00:40 → EDBD 02-01 00:40 → TELE 02-01 00:40 → TELE-WESTW 02-01 14:52 → WEST WING 02-02 23:31
PROVIDERS: ADMIT Internal Medicine; ATTEND Internal Medicine
DX: I16.1 Hypertensive emergency (principal); I50.32 Chronic diastolic (congestive) heart failure; I21.A1 Myocardial infarction type 2; I70.1 Atherosclerosis of renal artery; E78.5 Hyperlipidemia, unspecified; I25.10 Atherosclerotic heart disease of native coronary artery without angina pectoris; K21.9 Gastro-esophageal reflux disease without esophagitis; E11.51 Type 2 diabetes mellitus with diabetic peripheral angiopathy without gangrene; E89.0 Postprocedural hypothyroidism; I11.0 Hypertensive heart disease with heart failure; Z98.61 Coronary angioplasty status; Z95.1 Presence of aortocoronary bypass graft; Z86.73 Personal history of transient ischemic attack (TIA), and cerebral infarction without residual deficits; Z98.62 Peripheral vascular angioplasty status; Z79.84 Long term (current) use of oral hypoglycemic drugs; Z90.49 Acquired absence of other specified parts of digestive tract; Z79.82 Long term (current) use of aspirin; I49.5 Sick sinus syndrome
CPT/HCPCS: 36415; 80053; 80307; 81001; 82306; 82607; 82962; 83036; 83880; 84443; 84484; 85025; 85610; 85730; 93005; 93306; 93886; 93976; 97110; 97116; 97163; 97530; 99291; G0378; J1815

== ENCOUNTER 2024-11-04 08:53 | Inpatient (IN) | payer OTHER, MEDICAID ==
[~2024-11-04] VITALS: Ht 152.4 cm; Wt 54.0 kg
[~2024-11-04 08:53] MED LIST changes: +ASPI-325 PO; +ATOR20TA50 PO; +CLOP75TA70 PO; +ERGO1CAP23 PO; +NIFE1TAB31 PO
[2024-11-04 08:54] VITALS: TEMP 97.2
--- NOTE | 2024-11-04 10:16 | ED.PDOC ---
Back pain HPI HPI Comments 83-year-old female presents to the ER with son and with a prior MHx of hypertension, high lipids diabetes, coronary artery disease, GERD: Surgical history of CABG, carpal tunnel syndrome, kidney tumor resection, back surgery in the chief complaint of right lower back pain. Son reports with the patient has been having right lower back pain which radiates to the right lower quadrant for the past five weeks. Pain is constant Rated moderate to severe Able to get minimal relieve with OTC medication Last bowel movement Yesterday and normal Denies fevers chills night sweats unintentional weight loss Denies nausea vomiting diarrhea Denies blood in the stool Denies sick contact with similar symptoms Denies new foods/medications Denies family history of GI cancer Denies urgency, frequency, hematuria Denies vaginal discharge Chief Complaint: Back Pain Time Seen by MD: 09:50 Primary Care Provider: CHARLIE Reviewed Notes: Nurses Notes, Medications, Allergies Allergies: Coded Allergies: NO KNOWN ALLERGIES (Unverified , 04/13/18) Home Meds Active Scripts Pantoprazole Sodium Sesquihydr (Pantoprazole Sodium) 40 Mg Tab, 40 MG PO DAILY@0600 for 30 Days, #30 TAB Prov:DENISA WOLFF [facility] 02/03/24 Nifedipine (Nifedipine Er) 30 Mg Tab, 60 MG PO DAILY for 30 Days, #60 TAB Prov:[facility] 02/03/24 Ergocalciferol (VITAMIN D 02528 UNIT) 50,000 [place], [address] UNIT PO Q7D for 30 Days, #4 CAP [facility] Clopidogrel Bisulfate (CLOPIDOGREL) 75 Mg Tab, 75 MG PO DAILY for 30 Days, #30 TAB Prov:[facility]AD[facility] 02/03/24 Atorvastatin Calcium (ATORVASTATIN CALCIUM) 20 Mg Tab, 40 MG PO HS for 30 Days, #60 TAB Prov:DENISA WOLFF [facility] 02/03/24 Aspirin (Aspirin Low Dose) 81 Mg Tab, 81 MG PO DAILY for 30 Days, #30 TAB Prov:[facility] 02/03/24 Prednisone (Prednisone) 10 Mg Tab, 10 MG PO DAILY for 7 Days, #7 MG Prov:STEPHANIA NG MD 02/21/23 Amlodipine Besylate (Amlodipine Besylate) 10 Mg Tab, 1 TAB PO DAILY for 30 Days, #30 TAB 1 Refill Prov:MANI CURTIS MD 03/13/21 Carvedilol (COREG) 3.125 Mg Tab, 2 TAB OR DAILY for 30 Days, #60 TAB Prov:MANI CURTIS MD 03/13/21 Losartan Potassium (Losartan Potassium) 50 Mg Tab, 30 MG PO DAILY for 30 Days, #30 TAB 2 Refills Prov:MANI CURTIS MD 03/13/21 Aspirin (Aspir-Low) 81 Mg Tab, 30 MG PO DAILY for 30 Days, #30 TAB 1 Refill Prov:MANI CURTIS MD 03/13/21 Meclizine Hcl (Meclizine Hcl) 12.5 Mg Tab, 1 TAB PO BID PRN, #30 TAB Prov:SPRING YEN MD 03/07/19 Pantoprazole Sodium Sesquihydr (Pantoprazole Sodium) 40 Mg Tab, 40 MG PO DAILY for 90 Days, #90 TAB Prov:CATHERINE CABA MD 11/03/17 Reported Medications Esomeprazole Magnesium Trihydr (Nexium) 20 Mg Cap, 1 CAP PO DAILY, #30 CAP 2 Refills 07/30/22 Atorvastatin Calcium (ATORVASTATIN CALCIUM) 40 Mg Tab, 1 TAB PO DAILY, #30 TAB 5 Refills 07/30/22 Acetaminophen (Acetaminophen) 325 Mg Tab, 500 MG PO PRN for 30 Days, MG 0 Refills 07/30/22 Famotidine (Famotidine) 20 Mg Tab, 20 MG PO DAILY for 30 Days, MG 07/30/22 Clopidogrel Bisulfate (Plavix) 75 Mg Tab, 75 MG PO DAILY, TAB 07/30/22 Aspirin (Aspirin) 81 Mg Tab, 81 MG PO DAILY, TAB 07/30/22 Carvedilol (Carvedilol) 12.5 Mg Tab, 12.5 MG PO DAILY for 30 Days, MG 07/30/22 Lisinopril (Lisinopril) 30 Mg Tab, 30 MG PO DAILY for 30 Days, MG 07/30/22 Glipizide (Glipizide) 5 Mg Tab, 5 MG PO DAILY for 30 Days, MG 07/30/22 Metformin HCl (Metformin Hydrochloride) 1,000 Mg Tab, 1000 MG PO BID, TAB 07/30/22 Glipizide (Glipizide) 5 Mg Tab, PO for 30 Days, MG 03/12/21 Metformin Hydrochloride (Metformin Hcl) 850 Mg Tab, 850 MG PO BID for 30 Days, MG 03/05/19 Gabapentin (Gabapentin) 300 Mg Cap, 300 MG PO BID for 30 Days, MG 04/13/18 Cholecalciferol (D3 SUPER STRENGTH) 2,000 Unit Cap, for 30 Days 01/18/16 Gemfibrozil (Gemfibrozil) 600 Mg Tab, for 30 Days 01/18/16 Aspirin (Aspir-Low Ec) 81 Mg Tb, for 30 Days 01/18/16 Hydrochlorothiazide (Hydrochlorothiazide) 12.5 Mg Cap, 1 CAP PO DAILY, #30 CAP 5 Refills 06/08/14 Lisinopril (Lisinopril) 20 Mg Tab, 1 TAB PO DAILY, #30 TAB 5 Refills 06/08/14 Famotidine (PEPCID TABLET) 20 Mg Tb, 1 TAB PO BID, #60 TAB 5 Refills 06/08/14 Glipizide (Glipizide) 5 Mg Tab, 1 TAB PO DAILY, #90 TAB 3 Refills 06/08/14 Sucralfate (Carafate) 1 Gm Tb, 1 TAB PO QID, #120 TAB 3 Refills 06/08/14 Esomeprazole Magnesium Trihydr (Nexium) 40 Mg Cap, 40 MG PO BID, #60 11/09/13 Information Source: Patient, Relative (Child) Mode of Arrival: Ambulatory Timing: Weeks Duration: Since onset Location of Back pain: (R) Lower back (Which radiates to the RLQ) Severity: Moderate Prehospital treatment: None Quality: Aching Onset: Spontaneous History of: None Associated signs and symptoms: None Past Medical History PAST MEDICAL HISTORY: CAD, DM, GERD, High Lipids, HTN Surgical History: CABG Surgical History (Other): Carpal tunnel syndrome, kidney tumor resection, back surgery 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 History Family History Family History: Reviewed,noncontributory to illness, Unknown Social History Smoker: Non-Smoker Alcohol: Denies ETOH Use Drugs: Denies Drug Use Lives In: Home Constitutional: denies: chills, diaphoresis, fatigue, fever, malaise, sweats, weakness, others EENTM: denies: blurred vision, double vision, ear bleeding, ear discharge, ear drainage, ear pain, ear ringing, eye pain, eye redness, hearing loss, mouth pain, mouth swelling, nasal discharge, nose bleeding, nose congestion, nose pain, photophobia, tearing, throat pain, throat swelling, voice changes, others Respiratory: denies: cough, hemoptysis, orthopnea, SOB at rest, shortness of breath, SOB with excertion, stridor, wheezing, others Cardiovascular: denies: chest pain, dizzy spells, diaphoresis, Dyspnea on exertion, edema, irregular heart beat, left arm pain, lightheadedness, palpitations, PND, syncope, others Gastrointestinal: reports: abdominal pain; denies: abdomen distended, blood streaked bowels, constipated, diarrhea, dysphagia, difficulty swallowing, hematemesis, melena, nausea, poor appetite, poor fluid intake, rectal bleeding, rectal pain, vomiting, others Genitourinary: denies: abnormal vagina bleeding, burning, dyspareunia, dysuria, flank pain, frequency, hematuria, incontinence, pain, , vagina discharge, urgency, others Neurological: denies: dizziness, fainting, headache, left sided numbness, left sided weakness, numbness, paresthesia, pre-existing deficit, right sided numbness, right sided weakness, seizure, speech problems, tingling, tremors, weakness, others Musculoskeletal: reports: back pain; denies: gout, joint pain, joint swelling, muscle pain, muscle stiffness, neck pain, others Integumetry: denies: bruises, change in color, change in hair/nails, dryness, laceration, lesions, lumps, rash, wounds, others Allergic/Immunocompromised: denies: Difficulty Healing, Frequent Infections, Hives, Itching, others Hematologic/Lymphatic: denies: anemia, blood clots, easy bleeding, easy bruising, swollen glands, others Endocrine: denies: excessive hunger, excessive sweating, excessive thirst, excessive urination, flushing, intolerance to cold, intolerance to heat, unexplained weight gain, unexplained weight loss, others Psychiatric: denies: anxiety, bipolar disorder, depression, hopeless, panic disorder, schizophrenia, sleepless, suicidal, others All Other Systems: Reviewed and Negative Physical Exam General Appearance: No Apparent Distress, Normal HEENT: Normal ENT Inspection, Pharynx Normal, TMs Normal Neck: Full Range of Motion, Non-Tender, Normal, Normal Inspection Respiratory: Chest Non-Tender, Lungs Clear, No Accessory Muscle Use, No Respiratory Distress, Normal Breath Sounds Cardiovascular: No JVD, No Murmur, No Gallop, Regular Rate/Rhythm Breast Exam: Deferred Gastrointestinal: No Organomegaly, Non Tender, No Pulsatile Mass, Normal Bowel Sounds, RLQ, Soft Genitalia: Deferred Pelvic: Deferred Rectal: Deferred Extremities: No calf tenderness, Normal capillary refill, Normal inspection, Normal range of motion, Non-tender, No pedal edema Musculoskeletal : Location: Right Extremity Location: Other (Back and abdomen pain) Apperance: Tenderness: Moderate Neurologic: Alert, rubbish collector II-XII nml as Tested, No Motor Deficits, Normal Affect, Normal Mood, No Sensory Deficits Cerebellar Function: Normal Reflexes: Normal Skin: Dry, Normal Color, Warm Lymphatic: No Adenopathy Was a procedure done? Was a procedure done?: No Back Pain Differential Dx Differential Diagnosis: Fracture, Musculoskeletal Pain, Strain, Urinary Obstruction, Other X-Ray, Labs, Meds, VS Vital Signs Date Time Temp Pulse Resp B/P (MAP) Pulse Ox O2 Delivery O2 Flow Rate FiO2 11/04/24 08:54 97.2 64 15 157/70 96 97.2 Lab Test 11/04/24 10:18 11/04/24 10:00 Range/Units White Blood Count 5.9 4.4-10.8 10^3/uL Red Blood Count 4.48 4.0-5.20 10^6/uL Hemoglobin 13.8 12.2-16.2 g/dL Hematocrit 40.3 36.0-46.0 % Mean Corpuscular Volume 90.0 80.0-100.0 fL Mean Corpuscular Hemoglobin 30.9 28.0-32.0 pg Mean Corpuscular Hemoglobin Concent 34.3 32.0-36.0 g/dL Red Cell Distribution Width 13.5 11.8-14.3 % Platelet Count 214 140-450 10^3/uL Mean Platelet Volume 7.3 6.9-10.8 fL Neutrophils (%) (Auto) 60.6 37.0-80.0 % Lymphocytes (%) (Auto) 26.8 10.0-50.0 % Monocytes (%) (Auto) 9.9 0.0-12.0 % Eosinophils (%) (Auto) 2.1 0.0-7.0 % Basophils (%) (Auto) 0.6 0.0-2.0 % Neutrophils # (Auto) 3.6 1.6-8.6 10 ^3/uL Lymphocytes # (Auto) 1.6 0.4-5.4 10 ^3/uL Monocytes # (Auto) 0.6 0-1.3 10 ^3/uL Eosinophils # (Auto) 0.1 0-0.8 10 ^3/uL Basophils # (Auto) 0 0-0.2 10 ^3/uL Nucleated Red Blood Cells 0.1 % Sodium Level 141 136-145 mmol/L Potassium Level 4.5 3.5-5.1 mmol/L Chloride Level 104 98-107 mmol/L Carbon Dioxide Level 27 20-31 mmol/L Anion Gap 10 5-15 Blood Urea Nitrogen 14 9-23 mg/dL Creatinine 1.06 H 0.550-1.02 mg/dL Glomerular Filtration Rate Calc 53 >90 mL/min BUN/Creatinine Ratio 13.2 10.0-20.0 Serum Glucose 147 H 74-106 mg/dL Calcium Level 9.9 8.7-10.4 mg/dL Total Bilirubin 0.4 0.2-1.0 mg/dL Aspartate Amino Transferase (AST) 21 13-40 U/L Alanine Aminotransferase (ALT) 11 7-40 U/L Alkaline Phosphatase 108 46-116 U/L Total Protein 7.5 5.7-8.2 g/dL Albumin 5.0 H 3.2-4.8 g/dL Lipase 83 H 12-53 U/L Urine Color Light-yellow Yellow Urine Clarity Clear Clear Urine pH 6.0 5.0-9.0 Urine Specific [employer] 1.008 1.001-1.035 Urine Protein Negative Negative Urine Ketones Negative Negative Urine Blood Negative Negative /uL Urine Nitrite Negative Negative Urine Bilirubin Negative Negative Urine Urobilinogen Normal Negative mg/dL Urine Leukocyte Esterase Negative Negative /uL Urine RBC 1 0 - 4 /hpf Urine Microscopic WBC < 1 0-5 /HPF Urine Squamous Epithelial Cells Few <5 /hpf Urine Bacteria None seen None Seen /hpf Urine Glucose Normal Normal mg/dL PATIENT: RAJAN BOSWELL EACCT: [id number]: [id number] : 02/23/1941 LOC: ER ROOM / BED: / AGE / SEX: 83 / F ADM STATUS: REG ER SERVICE [id number] ORDERING PHYSICIAN: AKOSUA DESAI NP PROCEDURE(s): ABPLIV - CT AB PEL WITH IV CON ONLY REASON: Ab pain ORDER NUMBER(s): [id number], ACCESSION NUMBER(s): [id number] Indication: Ab pain Technique: CT axial images of the abdomen and pelvis are obtained with intravenous contrast. Coronal and sagittal reformats were obtained. Radiation Dose Information: CTDI volume is 6.5 mGy. Dose-length product is 320 mGy*cm Comparison: None FINDINGS: Pulmonary emphysematous changes within the imaged portions of the lung bases. There is a left upper lobe solid nodule with spiculation measuring 13 mm. Right adrenal gland absent. Left adrenal gland nodule measuring 2.0 cm. Multiple splenic hypodense lesions, greater than 10 in quantity measuring up to 15 mm. Pancreas unremarkable. Hepatic steatosis. The kidneys demonstrate no hydronephrosis. Stomach is partially distended. Small bowel loops are normal in caliber. Moderate volume stool in the colon. No secondary signs for appendicitis. Abdominal aortic atherosclerotic disease and eccentric mural wall thrombus. 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 Approximately 50% stenosis of the infrarenal abdominal aorta. Bladder partially distended. No free pelvic fluid. No inguinal lymphadenopathy. Right ovarian/ adnexal region calcifications.12 Moderate bilateral sacroiliac degenerative joint disease. Moderate to severe thoracolumbar degenerative disc disease. Posterior fixation of the L4 through S1 vertebral bodies. IMPRESSION: Left upper lobe solid nodule with spiculation measuring 13 mm, highly concerning for neoplasm. Recommend pulmonology / oncology consultation. There are underlying severe pulmonary emphysematous changes Right adrenalectomy changes. Left adrenal nodule measuring 2 cm. Recommend MRI adrenal protocol to further evaluate for malignancy and other etiologies. Multiple splenic hypodense lesions up to 15 mm, incompletely characterized. This can be further evaluated with MRI abdomen with and without contrast. Hepatic steatosis. Aortic atherosclerotic disease, eccentric mural wall thrombus with 50% stenosis of the infrarenal abdominal aorta. Other findings as described. Other findings as described. ATED BY: DAISY MURDOCK MD DICTATED DATE/TIME: 11/04/24 132 SIGNED BY: DAIYS MURDOCK MD SIGNED DATE/TIME: 11/04/24 132 CC: X-Ray, Labs, Meds, VS Comment 83-year-old female who was wearing has been going presents to the ER with son and with a prior MHx of hypertension, high lipids diabetes, coronary artery disease, GERD: Surgical history of CABG, carpal tunnel syndrome, kidney tumor resection, back surgery in the chief complaint of back pain. Patient arrives alert and oriented, ABC's intact, afebrile, vital signs stable, saturating well in room air Peripheral IV insertion+ labs were ordered. CBC was ordered to exclude anemia, blood loss, or infection. CMP was ordered to exclude electrolyte abnormalities, renal failure, dehydration, hyperglycemia and/or liver enzyme abnormalities. Urinalysis was ordered to rule out UTI or hematuria. Diagnostic imaging ordered by me and results interpreted by radiology : CT abdomen Left upper lobe solid nodule with spiculation measuring 13 mm, highly concerning for neoplasm. Recommend pulmonology / oncology consultation. There are underly ing severe pulmonary emphysematous changes Right adrenalectomy changes. Left adrenal nodule measuring 2 cm. Recommend MRI adrenal protocol to further evaluate for malignancy and other etiologies. Multiple splenic hypodense lesions up to 15 mm, incompletely characterized. This can be further evaluated with MRI abdomen with and without contrast. Hepatic steatosis. Aortic atherosclerotic disease, eccentric mural wall thrombus with 50% stenosis of the infrarenal abdominal aorta. Other findings as described. Other findings as described. The patients work up is remarkable for the findings noted above The patient's workup reveals that the patient needs further evaluation and/or treatment for the above medical conditions. Patient verbalized understanding of the above in his awaiting further evaluation by the admitting services Time of 1ST Reevaluation: 10:20 Reevaluation 1ST: Unchanged Patient Education/Counseling: Diagnosis, Treatment, Prognosis Family Education/Counseling: Diagnosis, Treatment, Prognosis SEPSIS Sepsis Screen Date sepsis recognized/suspect: Nov 04, 2024 Time Sepsis recognized/suspect: 0857 Recent Procedure: No On Antibiotic Therapy: No Respiratory Rate >20: No Heart Rate >90: No Temp<36 C (96.8 F) or >38.3 C: No SBP <90 or MAP <65 mmHG: No New Acute Mental Status Change: No Is the patient on CPAP, BIPAP,: No Physician Orders Kidney (11/04/24 09:57) Ct Ab Pel With Iv Con Only (11/04/24 11:24) Vital Signs Date Time Temp Pulse Resp B/P (MAP) Pulse Ox O2 Delivery O2 Flow Rate FiO2 11/04/24 08:54 97.2 64 15 157/70 96 97.2 Laboratory Tests Test 11/04/24 10:18 White Blood Count 5.9 10^3/uL (4.4-10.8) Departure 1 Departure Time of Disposition: 13:51 Impression: Primary Impression: Left upper lobe pulmonary nodule Additional Impressions: Aortic atherosclerosis Back pain Qualified Codes: M54.50 - Low back pain, unspecified Disposition: ADMITTED INPATIENT Condition: Serious Critical Care Note Critical Care Time?: No Stability Stability form required: No Heart Score Heart Score: Heart Score Response (Comments) Value History N/A 0 EKG N/A 0 Age N/A 0 Risk Factors N/A 0 Troponin N/A 0 Total 0 I personally scribed for AKOSUA DESAI NP ([email or web address]) on 11/04/24 at 10:16. Electronically submitted by Travis Alston ([email or web address]). AKOSUA DESAI NP Nov 04, 2024 10:16
--- NOTE | 2024-11-04 10:34 | DVH ---
INDICATION: r/o stones TECHNIQUE: Multiple real-time sonographic images of the kidneys and bladder were obtained. COMPARISON: None FINDINGS: The right kidney measures 8 cm in length, which is normal in size. There is normal echogen[place] of the right kidney. No hydronephrosis. The left kidney measures 9 cm in length, which is normal in size. There is normal echogenicity of the left kidney. No hydronephrosis. No large intraluminal masses are seen in the bladder. IMPRESSION: 1. Normal sonographic appearance of the kidneys. No hydronephrosis.
[2024-11-04 10:47] LABS: Hematocrit 40.3 % (36.0-46.0); Hemoglobin 13.8 g/dL (12.2-16.2); Mean Corpuscular Hemoglobin 30.9 pg (28.0-32.0); Mean Corpuscular Volume 90.0 fL (80.0-100.0); Nucleated Red Blood Cells % 0.1 %
[2024-11-04 11:03] LABS: Alanine Aminotransferase 11 U/L (7-40); Alkaline Phosphatase 108 U/L (46-116); Anion Gap 10 (5-15); BUN/Creatinine Ratio 13.2 (10.0-20.0); Bilirubin, Total 0.4 mg/dL (0.2-1.0); Blood Urea Nitrogen 14 mg/dL (9-23); Calcium 9.9 mg/dL (8.7-10.4); Carbon Dioxide 27 mmol/L (20-31); Chloride 104 mmol/L (98-107); Potassium 4.5 mmol/L (3.5-5.1); Sodium 141 mmol/L (136-145); Total Protein 7.5 g/dL (5.7-8.2)
[2024-11-04 11:07] LABS: Albumin 5.0 g/dL (3.2-4.8); Glucose 147 mg/dL (74-106)
[2024-11-04 11:14] LABS: Urine Protein, UAD Negative (Negative)
[2024-11-04 11:30] LABS: Lipase 83 U/L (12-53)
[2024-11-04] MEDS: IOHEXOL 300 MG/ML 100ML BOTTLE IJ ONE (12:57)
--- NOTE | 2024-11-04 13:23 | DVH ---
Indication: Ab pain Technique: CT axial images of the abdomen and pelvis are obtained with intravenous contrast. Coronal and sagittal reformats were obtained. Radiation Dose Information: CTDI volume is 6.5 mGy. Dose-length product is 320 mGy*cm Comparison: None FINDINGS: Pulmonary emphysematous changes within the imaged portions of the lung bases. There is a left upper lobe solid nodule with spiculation measuring 13 mm. Right adrenal gland absent. Left adrenal gland nodule measuring 2.0 cm. Multiple splenic hypodense l esions, greater than 10 in quantity measuring up to 15 mm. Pancreas unremarkable. Hepatic steatosis. The kidneys demonstrate no hydronephrosis. Stomach is partially distended. Small bowel loops are normal in caliber. Moderate volume stool in the colon. No secondary signs for appendicitis. Abdominal aortic atherosclerotic disease and eccentric mural wall thrombus. 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 Approximately 50% stenosis of the infrarenal abdominal aorta. Bladder partially distended. No free pelvic fluid. No inguinal lymphadenopathy. Rig ht ovarian/ adnexal region calcifications.12 Moderate bilateral sacroiliac degenerative joint disease. Moderate to severe thoracolumbar degenerative disc disease. Posterior fixation of the L4 through S1 vertebral bodies. IMPRESSION: Left upper lobe solid nodule with spiculation measuring 13 mm, highly concerning for neoplasm. Recom mend pulmonology / oncology consultation. There are underlying severe pulmonary emphysematous changes Right adrenalectomy changes. Left adrenal nodule measuring 2 cm. Recommend MRI adrenal protocol to further evaluate for malignanc y and other etiologies. Multiple splenic hypodense lesions up to 15 mm, incompletely characterized. This can be further evalu ated with MRI abdomen with and without contrast. Hepatic steatosis. Aortic atherosclerotic disease, eccentric mural wall thrombus with 50% stenosis of the infrarenal abd ominal aorta. Other findings as described. Other findings as described.
[2024-11-04] MEDS ORDERED: NITROGLYCERIN 0.4 MG SL TAB SL PRN (14:45)
[2024-11-04] MEDS ORDERED: ACETAMINOPHEN 325 MG TAB PO PRN (14:45)
[2024-11-04] MEDS ORDERED: DOCUSATE SOD 100 MG CAP PO PRN (14:45)
[2024-11-04] MEDS ORDERED: MORPHINE SULFATE INJ 2 MG/ml SYRG IV PRN (14:45)
[2024-11-04] MEDS ORDERED: HYDROcodone-ACET 5/325MG TAB PO PRN (14:45)
[2024-11-04] MEDS ORDERED: ONDANSETRON HCL 4 MG/2 ML VIAL IV PRN (14:45)
[2024-11-04] MEDS ORDERED: DEXTROSE (50%) 50ML SYRG IV PRN (14:45)
--- NOTE | 2024-11-04 15:23 | DVHHP2 ---
History of Present Illness Reason for Visit: Generalized weakness History of Present Illness The patient is a 83-year-old female with past medical history of GERD, diabetes mellitus, Coronary artery disease, hyperlipidemia, and hypertension who presented to [facility] ED with complaint of right lower back pain. Patient's son reports that patient has been experiencing right lower back pain which radiates to the right lower quadrant for the past 5 weeks, getting worse today that prompted this visit. Patient was seen and evaluated in the ED, laboratory data shows WBC 5.9, platelets 214, sodium 141, potassium 4.5, BUN 14, creatinine 1.06, glucose 147, calcium 9.9, albumin 5.0, lipase 83, blood pressure 157/70, heart rate 64, temperature 97.2 F, O2 saturation 96% on room air. Abdomen/pelvis CT revealing left upper lobe solid nodules with spiculation measuring 13 mm, highly concerning for neoplasm; underlying severe pulmonary emphysematous changes; left adrenal nodules measuring 2 cm; multiple splenic hypodense lesions up to 50 mm, incompletely characterized, MRI recommended for further evaluation. Please see medication orders section in the computer. On my assessment, son at bedside, patient denied chest pain, no headache, no dizziness, no shortness of breaths, no nausea, no vomiting, no fever, no chills. Patient was admitted for further evaluation and medical management. Past Medical History CAD, DM, GERD, High Lipids, HTN Past Surgical History CABG, Carpal tunnel syndrome, Kidney tumor resection, Back surgery Family History Reviewed, noncontributory to the management of this case. Past Social History The patient lives at home, denies smoking, alcohol or illicit drugs abuse. Review of Systems Constitutional: Yes: Weakness; No: Fever, Chills, Sweats, Malaise, Other Eyes: No: Pain, Vision change, Conjunctivae inflammation, Eyelid inflammation, Other, Redness ENT: No: Ear pain, Ear discharge, Nose pain, Nose discharge, Nose congestion, Mouth pain, Mouth swelling, Throat pain, Throat swelling, Other Respiratory: No: Cough, Dry, Shortness of breath, SOB with excertion, Wheezing, Hemoptysis, Pleuritic Pain, Sputum, Wheezing, Other Cardiovascular: No: Chest Pain, Palpitations, Orthopnea, Paroxysmal Noc. Dyspnea, Edema, Lt Headedness, Other Gastrointestinal: Abdominal Pain; No: Nausea, Vomiting, Diarrhea, Constipation, Melena, Hematochezia, Other Genitourinary: No Dysuria, No Frequency, No Incontinence, No Hematuria, No Retention, No Other Musculoskeletal: back pain; No: other, neck pain, shoulder pain, arm pain, hand pain, leg pain, foot pain Skin: No: Rash, Lesions, Jaundice, Bruising, Other Neurological: No: Weakness, Numbness, Incoordination, Change in speech, Confusion, Seizures, Other Allergies: Coded Allergies: NO KNOWN ALLERGIES (Unverified , 04/13/18) Exam Vital Signs Vital Signs Date Time Temp Pulse Resp B/P (MAP) Pulse Ox O2 Delivery O2 Flow Rate FiO2 11/04/24 08:54 97.2 64 15 157/70 96 97.2 General Appearance: Alert, Oriented X3, Cooperative, No acute distress HEENT: PERRLA, EOMI, Mucous membr. moist/pink Respiratory: Normal air movement Cardiovascular: Regular rate, Normal S1, Normal S2, No murmurs Abdominal: Normal bowel sounds, Soft, No tenderness, No hepatospenomegaly, No masses Extremities: No clubbing, No cyanosis, No edema, Normal pulses, No tenderness/swelling Skin: No rashes, No breakdown, No significant lesion Neuro: Normal speech, Normal tone, Sensation intact, Cranial nerves 3-12 NL, Reflexes 2+, Other (Generalized weakness) Psych/Mental Status: Mental status NL, Mood NL Labs/Xrays Labs Test 11/04/24 10:18 11/04/24 10:00 Range/Units White Blood Count 5.9 4.4-10.8 10^3/uL Red Blood Count 4.48 4.0-5.20 10^6/uL Hemoglobin 13.8 12.2-16.2 g/dL Hematocrit 40.3 36.0-46.0 % Mean Corpuscular Volume 90.0 80.0-100.0 fL Mean Corpuscular Hemoglobin 30.9 28.0-32.0 pg Mean Corpuscular Hemoglobin Concent 34.3 32.0-36.0 g/dL Red Cell Distribution Width 13.5 11.8-14.3 % Platelet Count 214 140-450 10^3/uL Mean Platelet Volume 7.3 6.9-10.8 fL Neutrophils (%) (Auto) 60.6 37.0-80.0 % Lymphocytes (%) (Auto) 26.8 10.0-50.0 % Monocytes (%) (Auto) 9.9 0.0-12.0 % Eosinophils (%) (Auto) 2.1 0.0-7.0 % Basophils (%) (Auto) 0.6 0.0-2.0 % Neutrophils # (Auto) 3.6 1.6-8.6 10 ^3/uL Lymphocytes # (Auto) 1.6 0.4-5.4 10 ^3/uL Monocytes # (Auto) 0.6 0-1.3 10 ^3/uL Eosinophils # (Auto) 0.1 0-0.8 10 ^3/uL Basophils # (Auto) 0 0-0.2 10 ^3/uL Nucleated Red Blood Cells 0.1 % Sodium Level 141 136-145 mmol/L Potassium Level 4.5 3.5-5.1 mmol/L Chloride Level 104 98-107 mmol/L Carbon Dioxide Level 27 20-31 mmol/L Anion Gap 10 5-15 Blood Urea Nitrogen 14 9-23 mg/dL Creatinine 1.06 H 0.550-1.02 mg/dL Glomerular Filtration Rate Calc 53 >90 mL/min BUN/Creatinine Ratio 13.2 10.0-20.0 Serum Glucose 147 H 74-106 mg/dL Calcium Level 9.9 8.7-10.4 mg/dL Total Bilirubin 0.4 0.2-1.0 mg/dL Aspartate Amino Transferase (AST) 21 13-40 U/L Alanine Aminotransferase (ALT) 11 7-40 U/L Alkaline Phosphatase 108 46-116 U/L Total Protein 7.5 5.7-8.2 g/dL Albumin 5.0 H 3.2-4.8 g/dL Lipase 83 H 12-53 U/L Urine Color Light-yellow Yellow Urine Clarity Clear Clear Urine pH 6.0 5.0-9.0 Urine Specific [place] 1.008 1.001-1.035 Urine Protein Negative Negative Urine Ketones Negative Negative Urine Blood Negative Negative /uL Urine Nitrite Negative Negative Urine Bilirubin Negative Negative Urine Urobilinogen Normal Negative mg/dL Urine Leukocyte Esterase Negative Negative /uL Urine RBC 1 0 - 4 /hpf Urine Microscopic WBC < 1 0-5 /HPF Urine Squamous Epithelial Cells Few <5 /hpf Urine Bacteria None seen None Seen /hpf Urine Glucose Normal Normal mg/dL PATIENT: RAJAN BOSWELL EACCT: [id number] UNIT: [id number] : 02/23/1941 LOC: ER ROOM / BED: / AGE / SEX: 83 / F ADM STATUS: REG ER SERVICE 1124 ORDERING PHYSICIAN: AKOSUA DESAI NP PROCEDURE(s): ABPLIV - CT AB PEL WITH IV CON ONLY REASON: Ab pain ORDER NUMBER(s): [id number], ACCESSION NUMBER(s): [id number] Indication: Ab pain Technique: CT axial images of the abdomen and pelvis are obtained with intravenous contrast. Coronal and sagittal reformats were obtained. Radiation Dose Information: CTDI volume is 6.5 mGy. Dose-length product is 320 mGy*cm Comparison: None FINDINGS: Pulmonary emphysematous changes within the imaged portions of the lung bases. There is a left upper lobe solid nodule with spiculation measuring 13 mm. Right adrenal gland absent. Left adrenal gland nodule measuring 2.0 cm. Multiple splenic hypodense lesions, greater than 10 in quantity measuring up to 15 mm. Pancreas unremarkable. Hepatic steatosis. The kidneys demonstrate no hydronephrosis. Stomach is partially distended. Small bowel loops are normal in caliber. Moderate volume stool in the colon. No secondary signs for appendicitis. Abdominal aortic atherosclerotic disease and eccentric mural wall thrombus. High-grade stenosis of the right external iliac artery, right [employer], bilateral SFA. Approximately 50% stenosis of the infrarenal abdominal aorta. Bladder partially distended. No free pelvic fluid. No inguinal lymphadenopathy. Right ovarian/ adnexal region calcifications.12 Moderate bilateral sacroiliac degenerative joint disease. Moderate to severe thoracolumbar degenerative disc disease. Posterior fixation of the L4 through S1 vertebral bodies. IMPRESSION: Left upper lobe solid nodule with spiculation measuring 13 mm, highly concerning for neoplasm. Recommend pulmonology/oncology consultation. There are underlying severe pulmonary emphysematous changes Right adrenalectomy changes. Left adrenal nodule measuring 2 cm. Recommend MRI adrenal protocol to further evaluate for malignancy and other etiologies. Multiple splenic hypodense lesions up to 15 mm, incompletely characterized. This can be further evaluated with MRI abdomen with and without contrast. Hepatic steatosis. Aortic atherosclerotic disease, eccentric mural wall thrombus with 50% stenosis of the infrarenal abdominal aorta. Other findings as described. Other findings as described. ORDERING PHYSICIAN: AKOSUA DESAI NP PROCEDURE(s): KIDUS - KIDNEY REASON: r/o stones ORDER NUMBER(s): [id number], ACCESSION NUMBER(s): [id number] INDICATION: r/o stones TECHNIQUE: Multiple real-time sonographic images of the kidneys and bladder were obtained. COMPARISON: None FINDINGS: The right kidney measures 8 cm in length, which is normal in size. There is normal echogen[place] of the right kidney. No hydronephrosis. The left kidney measures 9 cm in length, which is normal in size. There is normal echogenicity of the left kidney. No hydronephrosis. No large intraluminal masses are seen in the bladder. IMPRESSION: 1. Normal sonographic appearance of the kidneys. No hydronephrosis. SEPSIS Sepsis Screen Date sepsis recognized/suspect: Nov 04, 2024 Time Sepsis recognized/suspect: 0857 Recent Procedure: No On Antibiotic Therapy: No Respiratory Rate >20: No Heart Rate >90: No Temp<36 C (96.8 F) or >38.3 C: No SBP <90 or MAP <65 mmHG: No New Acute Mental Status Change: No Is the patient on CPAP, BIPAP,: No Physician Orders Kidney (11/04/24 09:57) Ct Ab Pel With Iv Con Only (11/04/24 11:24) Aspirin Tablet (11/05/24 10:00) Atorvastatin (Lipitor) (11/04/24 22:00) Amlodipine Tablet (Norvasc Tablet) (11/05/24 10:00) Amlodipine Tablet (Norvasc Tablet) (11/04/24 14:45) Famotidine Injection (Pepcid Injection) (11/05/24 10:00) Consistent Carb(Ccho)Diabetes (11/04/24 Dinner) Carvedilol Tablet (Coreg Tablet) (11/04/24 22:00) Glucose Blood (Accu-Chek Comfort Curve T (11/04/24 17:00) Mild Sliding Scale (11/04/24 17:00) Dextrose 50% Syringe (11/04/24 14:45) Admit (11/04/24 14:34) Allergies (11/04/24 14:34) Code Status (11/04/24 14:34) Sodium Chloride Lock (Saline Lock Ns) (11/04/24 22:00) Oxygen Per Hour (11/04/24 14:34) Hydrocodone-Acet 5/325mg Tab ([place] (11/04/24 14:45) Ondansetron Hcl (Zofran) (11/04/24 14:45) Docusate Sodium Capsule (Colace Capsule) (11/04/24 14:45) Fall Risk Precautions In Place QSHIFT (11/04/24 14:34) Complete Blood Count (11/05/24 04:00) Comprehensive Metabolic Panel (11/05/24 04:00) Condition: Serious (11/04/24 14:34) Acetaminophen Tablet (Tylenol Tablet) (11/04/24 14:45) Maintain Bed Rest (11/04/24 14:34) Sequential Compression Device (11/04/24 ) Nitroglycerin Sublingual (Ntrostat Subli (11/04/24 14:45) Morphine Sulfate Injection (11/04/24 14:45) Stat Ekg For Chest Pain (11/04/24 14:34) Notify Md Of Changes From Base (11/04/24 14:34) 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 Admit to telemetry unit 2. Breathing treatment 3. Pain control management 4. Management of fluids and electrolytes 5. Consultation for hospitalist 6. Diagnostic tests abdomen/pelvis CT 7. DVT prophylaxis-on aspirin 8. Repeat labs CBC, CMP in a.m. 9. Continue with current medical management 10. Treatment plan discussed with patient and RN. Patient verbalized understanding. Plan discussed with: Patient, Son (At bedside), Other (RN) My Orders Orders - AMANDA MARIE DNP Procedure Category Date Status Time Aspirin Tablet PHA 11/05/24 Verified 10:00 Atorvastatin (Lipitor) PHA 11/04/24 Verified 22:00 Amlodipine Tablet PHA 11/05/24 Verified (Norvasc Tablet) 10:00 Amlodipine Tablet PHA 11/04/24 Verified (Norvasc Tablet) 14:45 Famotidine Injection PHA 11/05/24 Verified (Pepcid Injection) 10:00 Consistent DIET 11/04/24 Verified Carb(Ccho)Diabetes Dinner Carvedilol Tablet PHA 11/04/24 Verified (Coreg Tablet) 22:00 Glucose Blood PHA 11/04/24 Verified (Accu-Chek Comfort 17:00 Mild Sliding Scale PHA 11/04/24 Verified 17:00 Dextrose 50% Syringe PHA 11/04/24 Verified 14:45 Admit ADMIT 11/04/24 Verified 14:34 Allergies ILIANA 11/04/24 Verified 14:34 Code Status CODE 11/04/24 Verified 14:34 Sodium Chloride Lock PHA 11/04/24 Verified (Saline Lock Ns) 22:00 Oxygen Per Hour RT 11/04/24 Verified 14:34 Hydrocodone-Acet PHA 11/04/24 Verified 5/325mg Tab ([place] 14:45 Ondansetron Hcl PHA 11/04/24 Verified (Zofran) 14:45 Docusate Sodium PHA 11/04/24 Verified Capsule (Colace 14:45 Fall Risk Precautions ILIANA 11/04/[address] 14:34 Complete Blood Count LAB 11/05/24 Verified 04:00 Comprehensive LAB 11/05/24 Verified Metabolic Panel 04:00 Condition: Serious ILIANA 11/04/24 Verified 14:34 Acetaminophen Tablet PHA 11/04/24 Verified (Tylenol Tablet) 14:45 Maintain Bed Rest ILIANA 11/04/24 Verified 14:34 Sequential ILIANA 11/04/24 Verified Compression Device Nitroglycerin PHA 11/04/24 Verified Sublingual (Ntrostat 14:45 Morphine Sulfate PHA 11/04/24 Verified Injection 14:45 Stat Ekg For Chest [facility] 11/04/24 Verified Pain 14:34 Notify Md Of Changes ILIANA 11/04/24 Verified From Base 14:34 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 For [facility] 11/04/24 Verified 24 Hours 14:34 Emergency Dysrhythmia [facility] 11/04/24 Verified Protocol 14:34 Rhythm Strips Once [facility] 11/04/24 Verified Every Shift 14:34 Oxygen By Nasal RT 11/04/24 Verified Cannula 14:34 Problem List: (1) Generalized weakness (2) Back pain (3) Elevated lipase (4) Left upper lobe pulmonary nodule (5) Low back pain, unspecified (6) Aortic atherosclerosis Date of Service: Nov 04, 2024 Billing Provider: AMANDA MARIE DNP Common Visit Codes: [id number] INP/OBS CARE (HIGH) AMANDA MARIE DNP Nov 04, 2024 15:23
[2024-11-04] MEDS: ACCU-CHEK COMFORT CURVE STRIP VI SCH (18:28)
[2024-11-04] MEDS: MORPHINE SULFATE INJ 2 MG/ml SYRG IV ONE (18:28)
[2024-11-04] MEDS: InsuLIN REG 1unit/0.01ml Soln (100units/ml) SC SCH (18:28)
[2024-11-04 18:54] VITALS: BP 162/67; PULSE 70; RESP 12; O2SAT 95
[2024-11-04] MEDS ORDERED: SODIUM CHLOR 0.9% PF (SALINE LOCK) 10ML VIAL/SYR IV SCH (22:00)
[2024-11-04] MEDS ORDERED: CARVEDILOL 3.125 MG TAB PO SCH (22:00)
[2024-11-04] MEDS ORDERED: ATORVASTATIN 20 MG TAB PO SCH (22:00)
[2024-11-05] MEDS ORDERED: FAMOTIDINE (10MG/ML) 2ML VL IV SCH (10:00)
== END 2024-11-04 19:47 | disposition left against medical advice (07) | DRG 552 ==
LOC: ER 08:53 → OVERFLOW 14:34 → UNDODEPER 19:51
PROVIDERS: ADMIT Nurse Practitioner Family; ATTEND Nurse Practitioner Family
DX: M54.50 Low back pain, unspecified (principal); I70.0 Atherosclerosis of aorta; R91.1 Solitary pulmonary nodule; Z53.29 Procedure and treatment not carried out because of patient's decision for other reasons; I25.10 Atherosclerotic heart disease of native coronary artery without angina pectoris; I10 Essential (primary) hypertension; E11.9 Type 2 diabetes mellitus without complications; E78.5 Hyperlipidemia, unspecified; K21.9 Gastro-esophageal reflux disease without esophagitis; Z95.1 Presence of aortocoronary bypass graft; Z79.899 Other long term (current) drug therapy; Z79.82 Long term (current) use of aspirin; Z79.84 Long term (current) use of oral hypoglycemic drugs
CPT/HCPCS: 36415; 74177; 76775; 80053; 81001; 82962; 83690; 85025; 96374; G0378

== ENCOUNTER 2025-03-07 00:39 | Emergency (ER) | payer OTHER, MEDICAID ==
[~2025-03-07] VITALS: Ht 152.4 cm; Wt 52.9 kg
[2025-03-07 00:46] VITALS: BP 166/46; RESP 16; TEMP 98; O2SAT 97
--- NOTE | 2025-03-07 00:53 | ECG ---
[facility] Test Date: 2025-03-07 Test Time: 00:52:20 Pat Name: RAJAN CARDOZO Department: Room: Gender: F Microphone Operator: RASHAUN : 1941-02-23 Requested By: SHA GUERRA Order Number: [id number] Reading MD: Wilbur Zambrano Measurements Intervals [place] Rate: 61 P: 113 HI: 200 QRS: 91 QRSD: 142 T: 64 QT: 449 QTc: 453 Interpretive Statements Sinus rhythm Right bundle branch block Electronically Signed On 03-13-2025 18:53:28 PST by Wilbur Zambrano Please click the below link to view image of tracing.
[2025-03-07 01:13] LABS: Hematocrit 38.2 % (36.0-46.0); Hemoglobin 12.6 g/dL (12.2-16.2); Mean Corpuscular Hemoglobin 30.1 pg (28.0-32.0); Mean Corpuscular Volume 91.0 fL (80.0-100.0); Nucleated Red Blood Cells % 0.0 %
[2025-03-07 01:19] VITALS: PULSE 61
--- NOTE | 2025-03-07 01:19 | ED.PDOC ---
HPI Comments 84-year-old female who came to ER for chest pains. Patient has an extensive cardiac history, including hypertension, diabetes, CHF, CVA, status post cardiac stents, CABG. She has poor compliance to her medications. She has been having shortness of breath with the past few months, which she attributed to her new apartment/ new scents. At around 10:00 p.m. today, she started having shortness of breath again, followed by left-sided chest pains radiating to her left shoulder. Chief Complaint: Chest Pain Time Seen by MD: 01:18 Primary Care Provider: CHARLIE Reviewed Notes: Nurses Notes Allergies: Coded Allergies: NO KNOWN ALLERGIES (Unverified , 04/13/18) Home Meds Active Scripts Pantoprazole Sodium Sesquihydr (Pantoprazole Sodium) 40 Mg Tab, 40 MG PO DAILY@0600 for 30 Days, #30 TAB Prov:DENISA WOLFF 02/03/24 Nifedipine (Nifedipine Er) 30 Mg Tab, 60 MG PO DAILY for 30 Days, #60 TAB Prov:DENISA WOLFF 02/03/24 Ergocalciferol (VITAMIN D 86257 UNIT) 50,000 [place], [address] UNIT PO Q7D for 30 Days, #4 CAP Prov:DENISA WOLFF 02/03/24 Clopidogrel Bisulfate (CLOPIDOGREL) 75 Mg Tab, 75 MG PO DAILY for 30 Days, #30 TAB Prov:DENISA WOLFF 02/03/24 Atorvastatin Calcium (ATORVASTATIN CALCIUM) 20 Mg Tab, 40 MG PO HS for 30 Days, #60 TAB Prov:DENISA WOLFF 02/03/24 Aspirin (Aspirin Low Dose) 81 Mg Tab, 81 MG PO DAILY for 30 Days, #30 TAB Prov:DENISA WOLFF 02/03/24 Prednisone (Prednisone) 10 Mg Tab, 10 MG PO DAILY for 7 Days, #7 MG Prov:STEPHANIA NG MD 02/21/23 Amlodipine Besylate (Amlodipine Besylate) 10 Mg Tab, 1 TAB PO DAILY for 30 Days, #30 TAB 1 Refill Prov:MANI CURTIS MD 03/13/21 Carvedilol (COREG) 3.125 Mg Tab, 2 TAB OR DAILY for 30 Days, #60 TAB Prov:MANI CURTIS MD 03/13/21 Losartan Potassium (Losartan Potassium) 50 Mg Tab, 30 MG PO DAILY for 30 Days, #30 TAB 2 Refills Prov:MANI CURTIS MD 03/13/21 Aspirin (Aspir-Low) 81 Mg Tab, 30 MG PO DAILY for 30 Days, #30 TAB 1 Refill Prov:MANI CURTIS MD 03/13/21 Meclizine Hcl (Meclizine Hcl) 12.5 Mg Tab, 1 TAB PO BID PRN, #30 TAB Prov:SPRING YEN MD 03/07/19 Pantoprazole Sodium Sesquihydr (Pantoprazole Sodium) 40 Mg Tab, 40 MG PO DAILY for 90 Days, #90 TAB Prov:CATHERINE CABA MD 11/03/17 Reported Medications Esomeprazole Magnesium Trihydr (Nexium) 20 Mg Cap, 1 CAP PO DAILY, #30 CAP 2 Refills 07/30/22 Atorvastatin Calcium (ATORVASTATIN CALCIUM) 40 Mg Tab, 1 TAB PO DAILY, #30 TAB 5 Refills 07/30/22 Acetaminophen (Acetaminophen) 325 Mg Tab, 500 MG PO PRN for 30 Days, MG 0 Refills 07/30/22 Famotidine (Famotidine) 20 Mg Tab, 20 MG PO DAILY for 30 Days, MG 07/30/22 Clopidogrel Bisulfate (Plavix) 75 Mg Tab, 75 MG PO DAILY, TAB 07/30/22 Aspirin (Aspirin) 81 Mg Tab, 81 MG PO DAILY, TAB 07/30/22 Carvedilol (Carvedilol) 12.5 Mg Tab, 12.5 MG PO DAILY for 30 Days, MG 07/30/22 Lisinopril (Lisinopril) 30 Mg Tab, 30 MG PO DAILY for 30 Days, MG 07/30/22 Glipizide (Glipizide) 5 Mg Tab, 5 MG PO DAILY for 30 Days, MG 07/30/22 Metformin HCl (Metformin Hydrochloride) 1,000 Mg Tab, 1000 MG PO BID, TAB 07/30/22 Glipizide (Glipizide) 5 Mg Tab, PO for 30 Days, MG 03/12/21 Metformin Hydrochloride (Metformin Hcl) 850 Mg Tab, 850 MG PO BID for 30 Days, MG 03/05/19 Gabapentin (Gabapentin) 300 Mg Cap, 300 MG PO BID for 30 Days, MG 04/13/18 Cholecalciferol (D3 SUPER STRENGTH) 2,000 Unit Cap, for 30 Days 01/18/16 Gemfibrozil (Gemfibrozil) 600 Mg Tab, for 30 Days 01/18/16 Aspirin (Aspir-Low Ec) 81 Mg Tb, for 30 Days 01/18/16 Hydrochlorothiazide (Hydrochlorothiazide) 12.5 Mg Cap, 1 CAP PO DAILY, #30 CAP 5 Refills 06/08/14 Lisinopril (Lisinopril) 20 Mg Tab, 1 TAB PO DAILY, #30 TAB 5 Refills 06/08/14 Famotidine (PEPCID TABLET) 20 Mg Tb, 1 TAB PO BID, #60 TAB 5 Refills 06/08/14 Glipizide (Glipizide) 5 Mg Tab, 1 TAB PO DAILY, #90 TAB 3 Refills 06/08/14 Sucralfate (Carafate) 1 Gm Tb, 1 TAB PO QID, #120 TAB 3 Refills 06/08/14 Esomeprazole Magnesium Trihydr (Nexium) 40 Mg Cap, 40 MG PO BID, #60 11/09/13 Information Source: Patient Mode of Arrival: Ambulatory Past Medical History PAST MEDICAL HISTORY: CAD, CVA, DM, GERD, High Lipids, HTN Surgical History: CABG, 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 Family History Family History: Reviewed,noncontributory to illness Social History Smoker: Non-Smoker Alcohol: Denies ETOH Use Drugs: Denies Drug Use Lives In: Home Constitutional: denies: chills, diaphoresis, fatigue, fever, malaise, sweats, weakness, others EENTM: denies: blurred vision, double vision, ear bleeding, ear discharge, ear drainage, ear pain, ear ringing, eye pain, eye redness, hearing loss, mouth pain, mouth swelling, nasal discharge, nose bleeding, nose congestion, nose pain, photophobia, tearing, throat pain, throat swelling, voice changes, others Respiratory: denies: cough, hemoptysis, orthopnea, SOB at rest, shortness of breath, SOB with excertion, stridor, wheezing, others Cardiovascular: reports: chest pain; denies: dizzy spells, diaphoresis, Dyspnea on exertion, edema, irregular heart beat, left arm pain, lightheadedness, palpitations, PND, syncope, others Gastrointestinal: denies: abdomen distended, abdominal pain, blood streaked bowels, constipated, diarrhea, dysphagia, difficulty swallowing, hematemesis, melena, nausea, poor appetite, poor fluid intake, rectal bleeding, rectal pain, vomiting, others Genitourinary: denies: abnormal vagina bleeding, burning, dyspareunia, dysuria, flank pain, frequency, hematuria, incontinence, pain, , vagina discharge, urgency, others Neurological: denies: dizziness, fainting, headache, left sided numbness, left sided weakness, numbness, paresthesia, pre-existing deficit, right sided numbness, right sided weakness, seizure, speech problems, tingling, tremors, weakness, others Musculoskeletal: denies: back pain, gout, joint pain, joint swelling, muscle pain, muscle stiffness, neck pain, others Integumetry: denies: bruises, change in color, change in hair/nails, dryness, laceration, lesions, lumps, rash, wounds, others Allergic/Immunocompromised: denies: Difficulty Healing, Frequent Infections, Hives, Itching, others Hematologic/Lymphatic: denies: anemia, blood clots, easy bleeding, easy bruising, swollen glands, others Endocrine: denies: excessive hunger, excessive sweating, excessive thirst, excessive urination, flushing, intolerance to cold, intolerance to heat, unexplained weight gain, unexplained weight loss, others Psychiatric: denies: anxiety, bipolar disorder, depression, hopeless, panic disorder, schizophrenia, sleepless, suicidal, others Physical Exam General Appearance: No Apparent Distress, Normal HEENT: Normal ENT Inspection, Pharynx Normal, TMs Normal Neck: Full Range of Motion, Non-Tender, Normal, Normal Inspection Respiratory: Chest Non-Tender, Lungs Clear, No Accessory Muscle Use, No Respiratory Distress, Normal Breath Sounds Cardiovascular: No Edema, No JVD, No Murmur, No Gallop, Normal Peripheral Pulses, Regular Rate/Rhythm Breast Exam: Deferred Gastrointestinal: No Organomegaly, Non Tender, No Pulsatile Mass, Normal Bowel Sounds, Soft Genitalia: Deferred Pelvic: Deferred Rectal: Deferred Extremities: No calf tenderness, Normal capillary refill, Normal inspection, Normal range of motion, Non-tender, No pedal edema Musculoskeletal : Apperance: Normal Neurologic: Alert, change management analyst II-XII nml as Tested, No Motor Deficits, Normal Affect, Normal Mood, No Sensory Deficits Cerebellar Function: Normal Reflexes: Normal Skin: Dry, Normal Color, Warm Lymphatic: No Adenopathy EKG EKG : Pulse Rate (adult): 61 Cardiac Rhythm: NSR Block: RBBB Was a procedure done? Was a procedure done?: No CP Differential Dx Differential Diagnosis: Angina, Anxiety / Panic Attack, Heart Failure Differential Diagnosis: Angina, Chest Wall Pain, Costochondritis, Esophageal reflux/spasm, Gastritis, Myocardial Infarction X-Ray, Labs, Meds, VS Vital Signs Date Time Temp Pulse Resp B/P (MAP) Pulse Ox O2 Delivery O2 Flow Rate FiO2 03/07/25 01:19 61 03/07/25 00:52 61 03/07/25 00:46 98.0 60 16 166/46 97 98.0 Lab Test 03/07/25 00:56 Range/Units White Blood Count 4.8 4.4-10.8 10^3/uL Red Blood Count 4.20 4.0-5.20 10^6/uL Hemoglobin 12.6 12.2-16.2 g/dL Hematocrit 38.2 36.0-46.0 % Mean Corpuscular Volume 91.0 80.0-100.0 fL Mean Corpuscular Hemoglobin 30.1 28.0-32.0 pg Mean Corpuscular Hemoglobin Concent 33.1 32.0-36.0 g/dL Red Cell Distribution Width 13.9 11.8-14.3 % Platelet Count 189 140-450 10^3/uL Mean Platelet Volume 7.2 6.9-10.8 fL Neutrophils (%) (Auto) 54.4 37.0-80.0 % Lymphocytes (%) (Auto) 27.9 10.0-50.0 % Monocytes (%) (Auto) 15.2 H 0.0-12.0 % Eosinophils (%) (Auto) 1.9 0.0-7.0 % Basophils (%) (Auto) 0.6 0.0-2.0 % Neutrophils # (Auto) 2.6 1.6-8.6 10 ^3/uL Lymphocytes # (Auto) 1.4 0.4-5.4 10 ^3/uL Monocytes # (Auto) 0.7 0-1.3 10 ^3/uL Eosinophils # (Auto) 0.1 0-0.8 10 ^3/uL Basophils # (Auto) 0 0-0.2 10 ^3/uL Nucleated Red Blood Cells 0.0 % Sodium Level 140 136-145 mmol/L Potassium Level 4.1 3.5-5.1 mmol/L Chloride Level 106 98-107 mmol/L Carbon Dioxide Level 25 20-31 mmol/L Anion Gap 9 5-15 Blood Urea Nitrogen 14 9-23 mg/dL Creatinine 0.97 0.550-1.02 mg/dL Glomerular Filtration Rate Calc 58 >90 mL/min BUN/Creatinine Ratio 14.4 10.0-20.0 Serum Glucose 192 H 74-106 mg/dL Calcium Level 9.4 8.7-10.4 mg/dL Total Bilirubin 0.2 0.2-1.0 mg/dL Aspartate Amino Transferase (AST) 17 13-40 U/L Alanine Aminotransferase (ALT) < 9 7-40 U/L Alkaline Phosphatase 96 46-116 U/L Troponin I High Sensitivity 32 </=34 ng/L B-Type Natriuretic Peptide 244.49 0-100 pg/mL Total Protein 7.2 5.7-8.2 g/dL Albumin 4.3 3.2-4.8 g/dL Time of 1ST Reevaluation: 01:12 Reevaluation 1ST: Unchanged Patient Education/Counseling: Diagnosis, Treatment Family Education/Counseling: Diagnosis, Treatment SEPSIS Sepsis Screen Date sepsis recognized/suspect: Mar 07, 2025 Time Sepsis recognized/suspect: 50 Recent Procedure: No On Antibiotic Therapy: No Respiratory Rate >20: No Heart Rate >90: No Temp<36 C (96.8 F) or >38.3 C: No SBP <90 or MAP <65 mmHG: No New Acute Mental Status Change: No Is the patient on CPAP, BIPAP,: No Physician Orders Electrocardigram (03/07/25 01:41) Electrocardigram (03/07/25 03:41) Chest Xray 1 View (03/07/25 01:08) Vital Signs Date Time Temp Pulse Resp B/P (MAP) Pulse Ox O2 Delivery O2 Flow Rate FiO2 03/07/25 01:19 61 03/07/25 00:52 61 03/07/25 00:46 98.0 60 16 166/46 97 98.0 Laboratory Tests Test 03/07/25 00:56 White Blood Count 4.8 10^3/uL (4.4-10.8) Departure 1 Departure Time of Disposition: 02:00 (84-year-old female with numerous comorbidities presenting for evaluation of shortness of breath, chest pain that has been recurring for months. Reporting almost daily shortness of breath no known history of heart failure, BNP obtained today is within normal limits. Does not seem consistent with new onset heart failure. Patient not having any pleuritic chest discomfort, has no risk factors for PE, does not seem consistent with pulmonary some. Given the patient's numerous cardiac risk factors with her associated chest pain she is very high risk for ACS. Patient has a heart score of 5. Initial troponin is within normal limits. CBC with no evidence of critical leukocytosis or significant anemia. Metabolic panel with no evidence of any acute electrolyte abnormalities. The plan was to obtain serial troponins and likely admit the patient given her numerous comorbidities and high heart score. However, it appears that the patient eloped prior to completion of workup.) Impression: Primary Impression: Shortness of breath Additional Impression: Left-sided chest pain Disposition: 07 LEFT AWOL/ELOPED Condition: Fair Critical Care Note Critical Care Time?: No Stability Stability form required: No Heart Score Heart Score: Heart Score Response (Comments) Value History Moderate Suspicious 1 EKG Normal 0 Age >65 2 Risk Factors >3 or Hx ASHD 2 Troponin Normal limit 0 Total 5 I personally scribed for SHA GUERRA MD ([email or web address]) on 03/07/25 at 01:19. Electronically submitted by Fer Byrnes ([email or web address]). SHA GUERRA MD Mar 07, 2025 01:19
[2025-03-07 01:28] LABS: Albumin 4.3 g/dL (3.2-4.8); Alkaline Phosphatase 96 U/L (46-116); Anion Gap 9 (5-15); BUN/Creatinine Ratio 14.4 (10.0-20.0); Blood Urea Nitrogen 14 mg/dL (9-23); Calcium 9.4 mg/dL (8.7-10.4); Carbon Dioxide 25 mmol/L (20-31); Chloride 106 mmol/L (98-107); Potassium 4.1 mmol/L (3.5-5.1); Sodium 140 mmol/L (136-145); Total Protein 7.2 g/dL (5.7-8.2)
[2025-03-07 01:32] LABS: Alanine Aminotransferase < 9 U/L (7-40); Bilirubin, Total 0.2 mg/dL (0.2-1.0); Glucose 192 mg/dL (74-106)
== END 2025-03-07 03:51 | disposition left against medical advice (07) ==
LOC: ER 00:39
DX: R07.89 Other chest pain (principal); R06.02 Shortness of breath; E78.5 Hyperlipidemia, unspecified; I11.0 Hypertensive heart disease with heart failure; I50.9 Heart failure, unspecified; I25.10 Atherosclerotic heart disease of native coronary artery without angina pectoris; E11.9 Type 2 diabetes mellitus without complications; Z79.899 Other long term (current) drug therapy; Z79.02 Long term (current) use of antithrombotics/antiplatelets; Z79.52 Long term (current) use of systemic steroids; Z79.82 Long term (current) use of aspirin; Z79.84 Long term (current) use of oral hypoglycemic drugs; Z86.73 Personal history of transient ischemic attack (TIA), and cerebral infarction without residual deficits; Z95.1 Presence of aortocoronary bypass graft; Z95.5 Presence of coronary angioplasty implant and graft
CPT/HCPCS: 36415; 80053; 83880; 84484; 85025; 93005